=== PATIENT | male | born 1970 | race Caucasian/White ===

== ENCOUNTER 2016-09-12 17:26 | Inpatient (IN) | payer MEDICARE, MEDICAID ==
[2016-09-12] VITALS (9 sets, daily range): BP systolic 110–194; BP diastolic 74–170; PULSE 91–144; RESP 20–38; O2SAT 93–100
[~2016-09-12] VITALS: Ht 180.3 cm; Wt 86.7 kg
[2016-09-12] MEDS ORDERED: 0.9% Sodium Chloride 1,000 ML IV ONE (17:38)
--- NOTE | 2016-09-12 17:38 | ED.REPORT ---
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 Per medics, the patient's reports that he has been acting strange for the past couple days. At the scene, the patient was initially agitated and combative with medics and was administered 500 Ketamine IM. En route, he had a generalized tonic clonic seizure 10 min SHOE LASTER and was given 5 Versed which halted the seizure. Pt was given 2000 cc fluid and heart rate was 140 en route. Oral airway placed immediately. Blood sugar is 548 on arrival. His reports that he drinks at least 5 energy drinks a day. No other hx available secondary to pt's condition as he is unresponsive. Nursing Notes Stated Complaint: HIGH BLOOD SUGAR, AGITATED Chief Complaint: Critical Care/Intubated Nursing Notes Reviewed: Yes Allergies: Coded Allergies: cephalexin (Verified Allergy, Unknown, 09/12/16) codeine (Verified Allergy, Unknown, 09/12/16) Scheduled PRN Cyclobenzaprine (Cyclobenzaprine) 10 Mg Tablet 10 MG PO TID PRN PRN For Spasm Miscellaneous Medications Atenolol (Atenolol) 100 Mg Tablet 100 MG PO Losartan Potassium (Losartan Potassium) 100 Mg Tablet 100 MG PO General Time Seen by MD: 17:33 Chief Complaint Other (high blood sugar) Hx Obtained From: EMS Arrived By: Ambulance Sudden in Onset?: Yes Onset Occurred: 1 - 4 hours ago Symptom Duration: Since onset Recent Healthcare: No recent doctor visit, No recent hospitalization Similar Sx Previous: No Past Medical History Past Medical History Reports: Diabetes mellitus, Hypertension Reports: Depression Past Surgical History unknown Smoking History Unknown if Ever Smoker Social History custodial methadone use Alcohol Use: Denies alcohol use Drug Use: Meth Other Social History: Local resident Ambulatory Status Independent Review of Systems Unable to Obtain ROS Patient condition Physical Exam General: Airway patent, GCS of 3, however pt is sedated HEENT: Pupils 4-3 and reactive Left tympanic membrane normal, right tympanic membrane normal Midface stable, no malocclusion No nasal septal hematoma Normocephalic. Right parietal scalp hematoma. Mucous membranes dry. No signs of tongue biting. Neck: supple, trachea midline Lungs: Clear to auscultation bilaterally, somewhat increased work of breathing Chest: Stable without tenderness, no crepitus Cardiac: Tachycardic, regular rhythm Abdomen: Soft, incontinent of urine. Back: No bruising or step-offs Pelvis: Stable Skin: Warm and well perfused Extremities: Abrasion to left side lower extremity, no deformity. Left upper extremity grossly normal, no deformity. Right upper extremity grossly normal, no deformity. Right lower extremity grossly normal, no deformity. Pulses: Palpable to bilateral upper and lower extremities Neuro: GCS 3. Heavily sedated so unable to assess strength, sensation. Normal muscle tone. Psych: Unable to assess 2/2 patient condition. Vital Signs Vital Signs Date Time Temp Pulse Resp B/P Pulse Ox O2 Delivery O2 Flow Rate FiO2 09/12/16 19:13 126 26 127/79 95 Mechanical Ventilator 09/12/16 19:05 144 23 194/170 94 09/12/16 17:31 36.5 137 38 165/77 98 Non-Rebreather 15 Initial VS: Reviewed Interpretation & Diagnostics Lab Results Interpretation Result Diagram: 09/12/16 1730 09/13/16 0040 Test 09/12/16 17:30 09/12/16 17:50 White Blood Count 23.9th/mm3 (3.8-10.1) Red Blood Count 5.60mil/mm3 (4.40-5.80) Hemoglobin 17.1g/dL (13.8-17.2) Hematocrit 48.4% (41.0-50.0) Mean Corpuscular Volume 86.4fL (81-100) Mean Corpuscular Hemoglobin 30.5pg (27.0-35.0) Mean Corpuscular Hemoglobin Concent 35.3% (32.0-37.0) Red Cell Distribution Width 12.7% (12.3-15.4) Platelet Count 311bil/L (150-400) Neutrophils (%) (Auto) 76.9% (40-74) Lymphocytes (%) (Auto) 17.0% (14-46) Monocytes (%) (Auto) 4.8% (4-12) Eosinophils (%) (Auto) 0.4% (0-5) Basophils (%) (Auto) 0.3% (0-3) Prothrombin Time 10.8sec (8.1-12.5) Prothromb Time International Ratio 1.01ratio Osmolality 336 (275-300) Magnesium Level 2.4mg/dL (1.6-2.6) Total Bilirubin 0.2mg/dL (0.0-1.2) Aspartate Amino Transf (AST/SGOT) 18U/L (0-50) Alanine Aminotransferase (ALT/SGPT) 15U/L (0-44) Alkaline Phosphatase 93U/L (25-150) Total Protein 6.8g/dL (6.4-8.4) Albumin 4.1g/dL (3.4-5.0) Salicylates Level < 3.0ug/mL (30-250) Acetaminophen Level < 15.0ug/mL Rx (10-25) Alcohols < 10mg/dL (0-10) Ketones Negative (Negative) Urine Color Straw (YELLOW) Urine Appearance Hazy (CLEAR,HAZY) Urine pH 5.0 (5.0-8.0) Urine Specific Scalf 1.020 (1.003-1.035) Urine Protein 30mg/dL (NEG,TRACE) Urine Glucose (UA) 1000mg/dL (NEGATIVE) Urine Ketones Negativemg/dL (NEGATIVE) Urine Occult Blood Large (NEGATIVE) Urine Nitrite Negative (NEGATIVE) Urine Bilirubin Negative (NEGATIVE) Urine Urobilinogen Normalmg/dL (NORMAL) Urine Leukocyte Esterase Negative (NEGATIVE) Urine RBC 0-2/hpf (0-2) Urine WBC 0-5/hpf (0-5) Urine Epithelial Cells Few/hpf (NONE-MOD) Urine Crystals Amorphous urates (NONE Urine Bacteria Few/hpf (NONE-FEW) Urine Hyaline Casts None/lpf (NONE) Urine Granular Casts None seen (NONE SEEN) Urine Waxy Casts None seen (NONE SEEN) Urine Red Blood Cell Casts None seen (NONE SEEN) Urine White Blood Cell Casts None seen (NONE SEEN) Urine Mucus None seen (None Seen) Urine Trichomonas None seen (NONE SEEN) Urine Yeast None (NONE SEEN) Urinalysis Comment None Urine Culture Reflexed Not indicated ECG Interpretation ECG Interpretation: ST elevation Anterior Leads Possibly rate related Time: 19:13 Interpreted by: ED physician Rhythm / Conduction: Tachycardia (rate 124) X-Ray Chest Interpretation Chest Xray Interpretation: IMPRESSION: Bilateral perihilar and medial basilar patchy opacities likely aspiration/atelectasis although cannot exclude pneumonia. Please correlate clinically. Endotracheal tube with the tip projecting approximately 5 cm above the shelbi. Dictated by: Iván Quarles M.D. on 09/12/2016 at 19:59 Approved by: Iván Quarles M.D. on 09/12/2016 at 20:00 View: Portable Interpretation / Wet Read by: Interpret - Radiologist CT Head Interpretation HEAD CT IMPRESSION: No acute intracranial process. Right parietal scalp swelling/hematoma. Dictated by: Iván Quarles M.D. on 09/12/2016 at 18:26 Approved by: Iván Quarles M.D. on 09/12/2016 at 18:[address] CHEST: Lungs and pleura: Bilateral dependent consolidations in the lower lobes probably aspiration/atelectasis. No pleural effusions or pneumothorax. Central and peripheral airways appear patent and normal in caliber. Mediastinum: Heart size is normal. No pericardial effusion. No mediastinal or hilar adenopathy by size criteria. Thoracic aorta and central pulmonary arteries are normal in size. Esophagus is normal in caliber. No hiatal hernia. Chest wall: No axillary or supraclavicular adenopathy by size criteria. Thyroid gland negative . Study type: Chest CT no contrast Interpretation / Wet Read by: Interpret - Radiologist CT Abd / Pelvis Interpretation CT ABDOMEN: Solid organs: Liver and spleen are normal in size and enhancement. Gallbladder contracted . Biliary system is non dilated. Pancreas enhances normally. No adrenal nodules. Kidneys demonstrate normal size and enhancement, without hydronephrosis. Peritoneum and bowel: Bowel loops demonstrate normal wall thickness and caliber. No free fluid or air. Incidental colonic diverticulosis. Nodes and vessels: No retroperitoneal or mesenteric adenopathy by size criteria. Aorta and inferior vena cava are normal in size. Miscellaneous: No ventral hernias. CT PELVIS: Genitourinary: Bladder contains gas and there is a Montelongo catheter. Miscellaneous: No inguinal hernias or adenopathy. Bones: No suspicious bony lesions. No vertebral body compression fractures. IMPRESSION: Bilateral dependent consolidations suggesting aspiration but superimposed pneumonia cannot be excluded. Recommend clinical correlation. Elsewhere, no acute abnormality. Normal appendix. Colonic diverticulosis without evidence of acute inflammation. Intraluminal gas within the bladder although this could be from catheterization since a Montelongo catheter is present. Please correlate clinically. Dictated by: Iván Quarles M.D. on 09/12/2016 at 18:59 Approved by: Iván Quarles M.D. on 09/12/2016 at 19:08 Study type: Abdominal CT no contrast Interpretation / Wet Read by: Interpret - Radiologist Procedures Central Line Placement Time: 20:53 Procedure Performed by: ED physician, ED resident Consent / Setup / Site Prep: Informed consent provided, Oxygen administered , Pulse oximeter applied, monitor worker applied, Hand hygiene observed, Standard surgical scrub, Max barrier precaution, Sterile drapes applied, Position Trendelenburg Procedural Sedation/Analgesia: Sedation: Propofol, Sedation: Versed, Analgesia: Fentanyl Side / Location / Ultrasound: Internal jugular right, Ultrasound assisted Catheter / Lumen / Technique: Triple lumen, Good blood return Post-Procedure / Complications: Antibiotic oint applied, Dressing placed, CXR neg for pneumothorax, Condition improved, Tolerated procedure well, Patient stable Intubation Time: 17:54 Procedure Performed by: ED physician Consent / Setup / Site Prep: No consent - emergent, Time-out performed, Oxygen administered, Pulse oximeter applied, monitor worker applied, Hand hygiene observed, Stand sterile technique Patient Position: Sniff position Blade / ET Tube / Route: Mac, ET tube cuffed Procedural Sedation/Analgesia: Sedation: Ketamine Neuromuscular Agent: Rocuronium ET Confirmation: Direct visualization, BS equal, End tidal CO2 device, CXR Secured / Marked: ET tube device, Tube marked at ___ cm (24), Tube marked at teeth Complications: None Post-Procedure: Tolerated procedure well Re-Eval/Medical Decision Med Decision/Clinical Course In summary, 46-year-old male presenting to the ED unresponsive after EMS was called for altered mental status over the past several days, subsequently given ketamine for agitation at the scene. Upon arrival to the ED, patient is tachycardic, hypertensive, and initially protecting his airway. GCS of 3, however heavily sedated. Taken to the CT scanner for a head CT; patient began to stir, become increasingly agitated and decision was made to perform intubation at that time. This was tolerated well; please see separate documentation above. Unclear etiology for the patient's presentation at this time. He did have a seizure en route - lactate of 18.4 (suspect that this is secondary to his seizure, however not entirely clear). Troponin negative, white blood cell count of 23.9, anion gap of 33, creatinine of 1.43, glucose of 657. No known history of diabetes, no ketones in the urine or in the blood; patient is acidotic, however I think this is likely accounted for by his lactate. Does not fit with DKA or HHS at this time. EKG does demonstrate some ST elevation in the anterior leads, possibly rate related. I did discuss this with associate programmer briefly, who agreed that this did not represent a STEMI. CT scans of the patient's chest, abdomen, and pelvis were negative for any acute abnormality that would explain his symptoms; there is some possible aspiration. A central line was placed; please see the documentation above. This was performed in conjunction with the resident. Given no clear etiology for the patient's symptoms at this time, plan admission to the ICU for further management and evaluation. Patient is currently critically ill and requires intensive care. Time of Eval: 17:33 Re-Evaluation/Progress Note: PMHx unable to obtain secondary to patient's condition. Pt is sedated and unresponsive. Time of Eval: 17:54 Re-Evaluation/Progress Note: Pt is intubated during CT scan. Time of Eval: 18:50 Re-Evaluation/Progress Note: Pt is back in ED room, chest x-ray shows tube in correct position. Time of Eval: 20:53 Re-Evaluation/Progress Note: Central line placement by ED physician Dr. Louis and ED resident Dr. Murcia. Consultation #1: Referral / Consult Name: Kwadwo Piper MD Consulted With: Cardiology Call Returned at: 19:26 Note: Case discussed with Dr. Kwadwo Piper, cardiology. He does not feel the EKG is consistent with STEMI at this time. Consultation #2: Referral / Consult Name: Tianna Rapp MD Consulted With: Hospitalist Call Returned at: 19:42 Water Commissioner: Agrees with eval, Agrees with plan, Accepts admit Note: Case discussed with Dr. Rapp. She accepts admit. Consultation #3: Referral / Consult Name: Clif Murcia DO Call Returned at: 20:02 Note: Discussed possibility of central line with Dr. Clif Murcia. Counseled Regarding: Diagnosis, Lab results, Need for follow-up, When/why to return to ED Discharge & Departure Primary Impression: Seizure Additional Impressions: Metabolic acidosis with increased anion gap and accumulation of organic acids Altered mental status, unspecified Acute hyperglycemia Disposition: ADMITTED TO HOSPITAL Discharge Condition All VS Reviewed: Yes Condition: Critical Referrals: [facility] Crit Care Except Billable Proc Time Spent: 105-134 minutes Services Performed: Patient management by me, Time spent at bedside, Reviewing test results, Reviewing imaging, Discussing patient care, Documentation in record Critical Care Notes: Please see MDM. Kasi Attestation Portion of this note were transcribed by Jocelin Munoz. I, Dr. Louis, personally performed the history, physical exam, and medical decision-making: I reviewed and confirmed the accuracy for the information in the transcribed note. Signed by: kasi Nevarez, 09/12/16 2100 copies to: [facility] Isaiah Louis MD Sep 12, 2016 17:38 Jocelin Munoz Sep 12, 2016 17:45 1754: Pt is intubated during CT scan. 0: Pt is back in ED room, chest x-ray shows intubation was successful. 1924: Consulted with Dr. Kwadwo Piper, cardiology. He does not feel the EKG is consistent with STEMI at this time. 1950: Dr. Rapp sees pt in the ED. She accepts admit. 1999: Discussed possibility of central line with Dr. Clif Murcia. 2052: Central line placement by ED resident, Dr. Clif Murcia. Time of Eval: 17:33 Re-Evaluation/Progress Note: PMHx unable to obtain secondary to patient's condition. Pt is sedated and unresponsive. Time of Eval: 17:54 Re-Evaluation/Progress Note: Pt is intubated during CT scan. Time of Eval: 18:50 Re-Evaluation/Progress Note: Pt is back in ED room, chest x-ray shows tube Time of Eval: 20:53 Re-Evaluation/Progress Note: Central line placement by ED resident, Dr. Clif Murcia. Consultation #1: Referral / Consult Name: Kwadwo Piper MD Consulted With: Cardiology Call Returned at: 19:26 Note: Case discussed with Dr. Kwadwo Piper, cardiology. He does not feel the EKG is consistent with STEMI at this time. Consultation #2: Referral / Consult Name: Tianna Rapp MD Consulted With: Hospitalist Call Returned at: 19:42 Water Commissioner: Agrees with eval, Agrees with plan, Accepts admit Note: Case discussed with Dr. Rapp. She accepts admit. Consultation #3: Referral / Consult Name: Clif Murcia DO Call Returned at: 20:02 Note: Discussed possibility of central line with Dr. Clif Murcia. Counseled Regarding: Diagnosis, Lab results, Need for follow-up, When/why to return to ED Discharge & Departure Primary Impression: Seizure Disposition: ADMITTED TO HOSPITAL Discharge Condition All VS Reviewed: Yes Condition: Critical Referrals: [facility] Crit Care Except Billable Proc Time Spent: 75-104 minutes Services Performed: Patient management by me, Time spent at bedside, Reviewing test results, Reviewing imaging, Discussing patient care, Documentation in record Scribe Attestation Portion of this note were transcribed by Jocelin Munoz. Dr. Missy Maharaj, personally performed the history, physical exam, and medical decision-making: I reviewed and confirmed the accuracy for the information in the transcribed note. Signed by: kasi Nevarez, 09/12/16 2100 copies to: [facility] Isaiah Louis MD Sep 12, 2016 17:38 Jocelin Munoz Sep 12, 2016 17:45 Counseled Regarding: Diagnosis, Lab results, Need for follow-up, When/why to return to ED Discharge & Departure Disposition: ADMITTED TO HOSPITAL Discharge Condition All VS Reviewed: Yes Condition: Stable Referrals: [facility] Crit Care Except Billable Proc Time Spent: 75-104 minutes Services Performed: Patient management by me, Time spent at bedside, Reviewing test results, Reviewing imaging, Discussing patient care, Documentation in record Scribe Attestation Portion of this note were transcribed by Jocelin Munoz. Dr. Missy Maharaj, personally performed the history, physical exam, and medical decision-making: I reviewed and confirmed the accuracy for the information in the transcribed note. Signed by: kasi Nevarez, 09/12/16 2100 copies to: [facility] Isaiah Parra MD Sep 12, 2016 17:38 Jocelin Munoz Sep 12, 2016 17:45
[2016-09-12] MEDS ORDERED: Rocuronium 10 mg/mL 5 mL Inj IV ONE (17:50)
[2016-09-12 17:51] LABS: BASOPHILS % (AUTO) 0.3 % (0-3); EOSINOPHILS % (AUTO) 0.4 % (0-5); MONOCYTES % (AUTO) 4.8 % (4-12); Mean Corpuscular Hemoglobin 30.5 pg (27.0-35.0); Mean Corpuscular Volume 86.4 fL (81-100); NEUTROPHILS % (AUTO) 76.9 % (40-74); Platelet Count 311 bil/L (150-400)
--- NOTE | 2016-09-12 17:52 | ABG ---
DateTimeAnalyzed 17:44:00 -_ pH ____7.038 - 7.350 7.450 pCO2 ___31.0__ -mmHg 35.0 45.0 pO2 258 -mmHg 69.0 116 HCO3- ____7.9__ -mmol/L 22.0 26.0 ABE __-23.1__ -mmol/L -2.0 2.0 tHb ___16.3__ -g/dL O2Hb ___94.9__ -% COHb ____2.3__ -% MetHb ____0.9__ -% sO2 ___98.0__ -% 25.0 FIO2 ___90.0__ -% Drawn By gj - Date/Time Notified____ 17:52:00 -_ Spontaneous_RR ___28.0__ -b/min Liter_Flow ___15.0__ -L/min Oxygen Device 1 NON RE-JUAN - Notified By gj - Notified Whom GAGE - B 757 -mmHg tO2 ___22.3__ -Vol% Luis test _Positive -
[2016-09-12 18:09] LABS: INR 1.01 ratio
[2016-09-12] MEDS ORDERED: Propofol 10,000 mCg/mL 20 mL Inj IV ONE (18:15)
[2016-09-12 18:18] LABS: Magnesium 2.4 mg/dL (1.6-2.6)
[2016-09-12 18:20] LABS: TROPONIN T < 0.010 ug/L (0.0-0.011)
[2016-09-12] MEDS ORDERED: Sodium Bicarb (50 mEq) 8.4% 1 mEq/mL 50 mL Syringe IVPUSH ONE (18:25)
--- NOTE | 2016-09-12 18:31 | DRSVH ---
PROCEDURE: CT BRAIN WITHOUT CONTRAST ([id number]) INDICATIONS: AMS; hyperglycemia, ?seizure TECHNIQUE: Noncontrast 4.5 mm thick angled axial sections acquired from the foramen magnum to the vertex, with c oronal reformats. COMPARISON: None. FINDINGS: Image quality: Excellent. CSF spaces: Basal cisterns are patent. No extra-axial fluid collections. Ventricles are normal in size and shape. Brain: No midline shift. No intracranial masses or hemorrhage. Carr-white matter interface is norm al. Skull and face: Right parietal scalp soft tissue swelling/hematoma. Calvarium and visualized facial bones are intact, without suspicious lesions. Sinuses: Posterior ethmoid air cell opacification otherwise the visualized sinuses and mastoids are c lear. IMPRESSION: No acute intracranial process. Right parietal scalp swelling/hematoma. Dictated by: Iván Quarles M.D. on 09/12/2016 at 18:26 Approved by: Iván Quarles M.D. on 09/12/2016 at 18:29
[2016-09-12 18:32] LABS: APPEARANCE,URINE HAZY (CLEAR,HAZY); COLOR,URINE STRAW (YELLOW); OCCULT BLOOD,URINE LARGE (NEGATIVE); UROBILINOGEN,URINE NORMAL (NORMAL)
[2016-09-12] MEDS ORDERED: fentaNYL-PF 50 mCg/mL 2 mL Inj ONE (19:08)
[2016-09-12] MEDS ORDERED: fentaNYL-PF 50 mCg/mL 2 mL Inj IVPUSH ONE (19:10)
--- NOTE | 2016-09-12 19:10 | DRSVH ---
PROCEDURE: CT CHEST, ABDOMEN AND PELVIS WITH CONTRAST ([id number]) INDICATIONS: AMS, recent abd pain, acidotic TECHNIQUE: After the administration of intravenous contrast, 5 mm thick sections acquired from the lung apices t o the symphysis. 5 mm coronal and sagittal reformats were performed, with additional 7 mm MIP reform ats through the lungs. For radiation dose reduction, the following was used: automated exposure con trol, adjustment of mA and/or kV according to patient size. COMPARISON: None. FINDINGS: Image quality: Excellent. CHEST: Lungs and pleura: Bilateral dependent consolidations in the lower lobes probably aspiration/atelectas is. No pleural effusions or pneumothorax. Central and peripheral airways appear patent and normal in caliber. Mediastinum: Heart size is normal. No pericardial effusion. No mediastinal or hilar adenopathy by size criteria. Thoracic aorta and central pulmonary arteries are normal in size. Esophagus is shiraz l in caliber. No hiatal hernia. Chest wall: No axillary or supraclavicular adenopathy by size criteria. Thyroid gland negative . ABDOMEN: Solid organs: Liver and spleen are normal in size and enhancement. Gallbladder contracted . Biliar y system is non dilated. Pancreas enhances normally. No adrenal nodules. Kidneys demonstrate shiraz l size and enhancement, without hydronephrosis. Peritoneum and bowel: Bowel loops demonstrate normal wall thickness and caliber. No free fluid or a ir. Incidental colonic diverticulosis. Nodes and vessels: No retroperitoneal or mesenteric adenopathy by size criteria. Aorta and inferior vena cava are normal in size. Miscellaneous: No ventral hernias. PELVIS: Genitourinary: Bladder contains gas and there is a Montelongo catheter. Miscellaneous: No inguinal hernias or adenopathy. Bones: No suspicious bony lesions. No vertebral body compression fractures. IMPRESSION: Bilateral dependent consolidations suggesting aspiration but superimposed pneumonia matty ot be excluded. Recommend clinical correlation. Elsewhere, no acute abnormality. Normal appendix. Colonic diverticulosis without evidence of acute inflammation. Intraluminal gas within the bladder although this could be from catheterization since a Montelongo cathete r is present. Please correlate clinically. Dictated by: Iván Quarles M.D. on 09/12/2016 at 18:59 Approved by: Iván Quarles M.D. on 09/12/2016 at 19:08
[2016-09-12] MEDS ORDERED: fentaNYL 2,500 mCg/250 mL IV Premix IV SCH (19:15)
--- NOTE | 2016-09-12 20:03 | DRSVH ---
PROCEDURE: X-RAY CHEST ONE VIEW, PORTABLE ([id number]) INDICATIONS: AMS TECHNIQUE: One view of the chest was acquired. COMPARISON: None. FINDINGS: Surgical changes and devices: Endotracheal tube is seen with the tip approximately 5 cm above the car noel Lungs and pleura: No pleural effusions or pneumothorax. There are bilateral perihilar and medial bas ilar patchy opacities. Lung volumes are decreased. Mediastinum: Mediastinal contours appear normal. Heart size is normal. Bones and chest wall: No suspicious bony lesions. Overlying soft tissues appear unremarkable. IMPRESSION: Bilateral perihilar and medial basilar patchy opacities likely aspiration/atelectasis although cannot exclude pneumonia. Please correlate clinically. Endotracheal tube with the tip projecting approximately 5 cm above the shelbi. Dictated by: Iván Quarles M.D. on 09/12/2016 at 19:59 Approved by: Iván Quarles M.D. on 09/12/2016 at 20:00
[2016-09-12] MEDS ORDERED: CYCL10TA9 PO (20:56)
[2016-09-12] MEDS ORDERED: Alum-Mag Hydrox-Simeth 30 mL Suspension PO PRN (21:20)
[2016-09-12] MEDS ORDERED: Ondansetron 2 mg/mL 2 mL Inj IVPUSH PRN (21:20)
[2016-09-12] MEDS ORDERED: Dextrose 5% 0.45% NaCl 1,000 ML IV PRN (21:28)
[2016-09-12] MEDS ORDERED: Insulin Human REGular Inj 100 UNIT in 0.9% Sodium Chloride-Pha MIX 100 ML IV SCH (21:28)
--- NOTE | 2016-09-12 21:44 | DRSVH ---
PROCEDURE: X-RAY CHEST ONE VIEW, PORTABLE ([id number]) INDICATIONS: CENTRAL LINE PLACEMENT TECHNIQUE: One view of the chest was acquired. COMPARISON: None. FINDINGS: Surgical changes and devices: Endotracheal tube with the tip projecting 3 cm above the shelbi. Right internal jugular central venous catheter the tip projecting in the lower SVC. Enteric tube with the t ip projecting in the stomach Lungs and pleura: No pleural effusions or pneumothorax. No focal consolidation however scattered by Basler and perihilar groundglass opacities. Mediastinum: Mediastinal contours appear normal. Heart size is normal. Bones and chest wall: No suspicious bony lesions. Overlying soft tissues appear unremarkable. IMPRESSION: Low lung volumes and scattered groundglass opacities possibly atelectasis versus pulmonary edema. Ple ase correlate clinically. Support equipment as detailed above. Right central venous catheter with the tip projecting in the low er SVC. No pneumothorax. Dictated by: vIán Quarles M.D. on 09/12/2016 at 21:40 Approved by: Iván Quarles M.D. on 09/12/2016 at 21:42
--- NOTE | 2016-09-12 21:44 | PCM.HPMED ---
Subjective Date of Service Sep 12, 2016 Primary Provider: Admitting Physician: Tianna Rapp MD Primary Care Physician: Other,Physician Attending Physician: Tianna Rapp MD Admit Status: From the Emergency Department Chief Complaint: Altered Mental Status with seizure reported by ED History of Present Illness: Patient George Pan is a 46-year-old man with past medical history remarkable for hypertension, chronic back pain and diabetes who presents to [facility] with altered mental status and reported seizure activity in route by EMS. The patient was seen in the ED and was intubated and sedated. The history was obtained from the patient's 18-year-old son as well as common law of 20 years and mother. The son states that the patient was sleeping most of the day when he went to check on him the patient was lying face down with foamy sputum coming from his mouth and unresponsive. The son called EMS and proceeded to perform CPR until paramedics arrived. Per ED report of EMS activity paramedics found the patient initially agitated and combative and was administered 500 mg of ketamine IM. The patient was found to have an elevated blood glucose and the patient was given 2000 mL of IV fluids with a heart rate in the 140s. In route the patient is described as having a generalized seizure 10 minutes EPIC DIRECTOR and was given 5 mg of Versed which halted the seizure. Per the the patient has been complaining of 4 days of headache made worse with coughing. For the headache today the left the patient a topiramate prescription bottle however after pill count inspection the patient likely took 1 or none. The mother gave the patient a Vicodin pill for the headache. 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 The patient reportedly has diagnoses of diabetes and hypertension however the patient is noncompliant with prescription medications and has never taken insulin. The patient has reportedly been urinating extremely frequently and large amounts over the last several days to weeks. Reportedly having to get up multiple times in the middle of the night to urinate. Review of Systems: Unable to obtain given the patient is intubated and sedated. 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 Hx Alcohol Use: No ( denies) Hx Substance Use: Yes (stopped methadone one month prior distant history of amphetamine use) Hx Tobacco Use: Yes Smoking Status: Current Every Day Smoker Years of Smokin Living Arrangement: with Family Exam Vital Signs Vital Sign - Last Date Time Temp Pulse Resp B/P Pulse Ox O2 Delivery O2 Flow Rate FiO2 09/12/16 20:16 93 09/12/16 19:40 108 26 131/94 Mechanical Ventilator 09/12/16 17:31 36.5 15 Exam Gen.: Middle-aged man with normal body habitus intubated and sedated Eyes: Pupils constricted but equal round and reactive to light, anicteric sclera , noninjected conjunctiva HENT: Hematoma noted at right parietal, ET tube in place, oral cavity with moist mucous membranes without central cyanosis Neck: Supple, trachea midline, right central venous IJ in place no noted JVD Cardiovascular: Tachycardic regular rhythm without murmurs rubs or gallops noted Lungs: Coarse bronchial breath sounds noted in bilateral lung [place], without wheezing or rhonchi Abdomen: Soft, nondistended, tympanic to percussion, normal active bowel sounds , without organomegaly Extremities: No cyanosis clubbing or edema noted, pulses intact bilaterally at dorsalis pedis and radial : Montelongo catheter in place Skin: Warm and dry Neuro: Difficult to assess given intubated and sedated however patient is able to move all extremities spontaneously Psych: Unable to assess Lab and Diagnostics Result Diagram: 09/12/16 1730 09/12/16 1730 X-Rays, CTs and MRIs CT BRAIN WITHOUT CONTRAST IMPRESSION: No acute intracranial process. Right parietal scalp swelling/ hematoma. Approved by: Iván Quarles M.D. on 09/12/2016 at 18:29 PROCEDURE: CT CHEST, ABDOMEN AND PELVIS WITH CONTRAST IMPRESSION: Bilateral dependent consolidations suggesting aspiration but superimposed pneumonia cannot be excluded. Recommend clinical correlation. Elsewhere, no acute abnormality. Normal appendix. Colonic diverticulosis without evidence of acute inflammation. Intraluminal gas within the bladder although this could be from catheterization since a Montelongo catheter is present. Please correlate clinically. Approved by: Iván Quarles M.D. on 09/12/2016 at 19:08 X-RAY CHEST ONE VIEW, PORTABLE IMPRESSION: Bilateral perihilar and medial basilar patchy opacities likely aspiration/ atelectasis although cannot exclude pneumonia. Please correlate clinically. Endotracheal tube with the tip projecting approximately 5 cm above the shelbi. Approved by: Iván Quarles M.D. on 09/12/2016 at 20:00 Assessment & Plan Patient George Pan is a 46-year-old man with past medical history remarkable for hypertension, chronic back pain and diabetes who presents to [facility] with altered mental status and reported seizure activity in route by EMS. # Acute Generalized tonic clonic seizure - Described by EMS and broken with 5 mg IV Versed in route - Family denies any recent history of seizure, reportedly patient had febrile seizures as a young child - family reports the patient has had a four-day headache, and slept most of today after possibly taking both Vicodin and Topiramate - denies chronic alcohol or benzodiazepine use, with negative urine tox in the ED, making withdrawal seizures less likely - Initial lactic acid of 18.4 was rapidly corrected to 2.1 within 5 hours confirming likely seizure activity prior to initial blood draw - Patient is currently intubated and sedated on propofol and fentanyl both of which are depressants were not first line for seizure activity - CT head without contrast personally reviewed and discussed with on-call radiologist fails to reveal an underlying etiology - Keppra 1500 mg IV once as a loading dose until etiology can be determined - MRI seizure brain ordered for the AM, patient will require MRI compatible ventilator and pushes of Ativan and propofol - EEG ordered # Acute altered mental status - Patient was found lying face down by his son nonresponsive after which the son began CPR and called 911, the patient reportedly became combative with EMS requiring ketamine sedation and then had a witnessed seizure - CT head without contrast personally reviewed and discussed with on-call radiologist fails to reveal an underlying etiology - Differential diagnosis includes metabolic encephalopathy, drug tox delirium, post ictal state, as well as embolic/thrombotic CVA - Patient was intubated in the ED and sedated on propofol and fentanyl both of which are depressants likely helping control and he seizure activity however are not first line for seizure activity - Patient is able to move all extremities spontaneously with low sedation - Sedation vacation in the a.m. # Acute severe High anion gap metabolic acidosis with respiratory compensation - Initial ABG performed an EGD while on 15 L nonrebreather showed a pH of 7.038 , PCO2 31, PO2 258, calculated bicarbonate 8 - Initial anion gap from ED blood draw shows a gap of 33 with bicarbonate measured at 8 likely related to the lactic acid of 18 - Measured serum osmolarity is 336 with calculated osmolarity given hyperglycemia of 316 making an osmole gap 20 likely related to the lactic acid of 18 - Methanol Ethylene Glycol will be ordered, ketones were negative ASA negative ETOH negative - Lactic acid redrawn every 2 hours until negative # Acute Hyperosmolar hyperglycemic nonketotic state secondary to chronic type II Diabetes Mellitus - Patient has a diagnosis of type II diabetes however was not taking any medications and was urinating extremely frequently per family report - Serum glucose at initial check was 657 with osmolarity of 336 without ketones - Patient placed on the non-DKA protocol insulin drip - Regular monitoring of BMP is to check anion gap to determine duration of insulin drip therapy - Hgb A1C ordered and pending # Elevated troponins of uncertain significance - Initial troponin at admission was negative however repeat troponin positive at 0.314 - Initial EKG performed in the ED was read as possible anterior wall infarct however this was difficult to assess given tachycardia with peaked T waves, repeat EKG shows only left ventricular hypertrophy based off cumulative 35 mm to flexion QRS complexes in the precordial leads, without ischemic changes or T- wave inversions from possible cardiac injury - CK 466 CK-MB 11 with the percent CK-MB 2.5 and making global muscle injury secondary to above seizure the likely diagnosis - Given witnessed seizure activity requiring Versed as well as elevated lactic acid with vital signs of heart rate of 144 with blood pressure of 194/170 likely related to demand ischemia - Bedside assessment of wall motion abnormality with ultrasound failed to reveal any abnormalities - Redraw troponins until decline - Anticoagulation is contraindicated given the patient's seizure with altered mental status - Complete echo to formally assess for wall motion abnormality # Acute leukocytosis - Neutrophil predominance of events at 76.9% - likely stress response - CT chest abdomen pelvis shows some dependent consolidations in the posterior lung azevedo however procalcitonin is negative at 0.17 - [place] dependent consolidations likely related to aspiration pneumonitis given the patient had CPR performed by his son - Follow up routine CBC and chest x-rays # acute kidney injury - creatinine at admission 1.43, which improved to 1.0 after 5 hours - FENA at 0.4% shows pre-renal cause likely due to oliguria osmotic diureses from uncontrolled diabetes with noted significant glucose load on UA - fluid rehydration DVT prophylaxis: SCDs only given recent altered mental status with seizure activity makes anticoagulation contraindicated GI prophylaxis: Not indicated at this time Patient is full code Patient is admitted to the CCU as inpatient with expected length of stay greater than two midnights given the presenting symptoms, likely diagnosis, possible complications and required treatments. Pain Evaluation: Adequate Pain Control GI Prophylaxis: Not indicated VTE Prophylaxis Indicated: Contraindicated VTE Prophylaxis: SCDs VTE Mechanical Devices: Intermittant Pneumatic CD Resuscitation Status: CPR: Attempt Resuscitation Attending Statement Pt seen and examined by myself and agree with above plan. Clif Murcia DO Sep 12, 2016 21:44 Tianna Rapp MD Sep 13, 2016 06:12
[2016-09-12] MEDS: Propofol Inj 1,000,000 MCG in IV Premix 1 EACH IV SCH (22:08)
[2016-09-12] MEDS: fentaNYL 2,500 mCg/250 mL 2,500 MCG in IV Premix 1 EACH IV SCH (22:55)
[2016-09-12] MEDS: 0.9% Sodium Chloride 1,000 ML IV SCH (22:55)
--- NOTE | 2016-09-12 23:25 | ABG ---
DateTimeAnalyzed 23:14:16 -_ pH ____7.404 - 7.350 7.450 pCO2 ___32.3__ -mmHg 35.0 45.0 pO2 120 -mmHg 70.0 100 HCO3- ___20.2__ -mmol/L 22.0 26.0 ABE ___-3.9__ -mmol/L -2.0 2.0 tHb ___15.9__ -g/dL 12.0 18.0 O2Hb ___98.0__ -% 95.0 COHb ____1.1__ -% 1.5 MetHb ____0.1__ -% 0.4 1.5 sO2 ___99.2__ -% 25.0 FIO2 ___21.0__ -% PEEP ____5.0__ -cmH2O Set_RR 20 -b/min Vt __550.0__ -L Drawn By TLA - Date/Time Notified____ 23:25:00 -_ Spontaneous_RR 20 -b/min Oxygen Device 1 VENTILATOR - Notified By TLA - Notified Whom RN-Doc Pierre - K+ ____4.0__ -mmol/L tO2 ___22.0__ -Vol% Luis test N/A -
[2016-09-12 23:35] LABS: TROPONIN T 0.314 ug/L (0.0-0.011)
[2016-09-13] VITALS (19 sets, daily range): BP systolic 82–126; BP diastolic 48–66; PULSE 67–91; RESP 17; O2SAT 95–99
[2016-09-13] MEDS: Chlorhexidine 0.12% 15 mL Oral Solution MT SCH ×7 (00:30→23:44)
[2016-09-13] MEDS ORDERED: ATEN100T PO (00:52)
[2016-09-13] MEDS ORDERED: LOSA100T29 PO (00:52)
--- NOTE | 2016-09-13 02:12 | PCM.PROC ---
Procedure Note Date of Service: Sep 12, 2016 Pre Procedure Diagnosis: Generalized tonic-clonic seizure Hyperglycemic hyperosmolar nonketotic state Post Procedure Diagnosis: Generalized tonic-clonic seizure Hyperglycemic hyperosmolar nonketotic state Procedure: Right internal jugular central line placement Provider and Dry Cleaner Helper: Dr. Isaiah Murcia Indication for Procedure: Intravenous access given critically ill Procedural Analgesia: No local anesthetic given; patient was given a bolus with Propofol Procedure Details: Prior to the procedure 8 time-out was completed verifying correct patient, procedure, and site. Before beginning each lumen of the 9 solomon islander catheter was evacuated of air and flushed with sterile saline. The patient's right internal jugular was then evaluated using ultrasound to visualize the jugular and carotid anatomy. The patient was placed in a dependent position appropriate for central line placement based on the internal jugular vein to be cannulated. The patients right neck was prepped and draped in sterile fashion. A triple lumen 9- Latvian catheter was introduced into the the right internal jugular using the Seldinger technique and under ultrasound guidance. The catheter was threaded smoothly over the guide wire and appropriate blood return was obtained. The catheter was then secured in place to the skin using a sterile Tegaderm dressing. A follow up chest xray was performed and the catheter tip was determined to be located in the appropriate location in the SVC. Dr. Louis was present for the entire procedure. Estimated Blood Loss: < 5mL The patient tolerated the procedure well and there were no complications. Attending Statement I performed the procedure alongside the resident as noted above. Please see separate documentation. Clif Mrucia DO Sep 13, 2016 02:12 Isaiah Louis MD Sep 14, 2016 15:14
[2016-09-13 02:27] LABS: OSMOLALITY, URINE 588 mOs/kH2O (250-1200)
[2016-09-13] MEDS ORDERED: levETIRAcetam Inj 1,500 MG in Dextrose 5% 100 ML IV ONE (02:30)
[2016-09-13] MEDS: Propofol Inj 1,000,000 MCG in IV Premix 1 EACH IV SCH ×4 (03:38→21:07)
[2016-09-13 04:38] LABS: BASOPHILS % (AUTO) 0.1 % (0-3); EOSINOPHILS % (AUTO) 0.2 % (0-5); MONOCYTES % (AUTO) 8.4 % (4-12); Mean Corpuscular Hemoglobin 30.4 pg (27.0-35.0); Mean Corpuscular Volume 84.5 fL (81-100); NEUTROPHILS % (AUTO) 79.4 % (40-74); Platelet Count 238 bil/L (150-400)
--- NOTE | 2016-09-13 05:14 | ABG ---
DateTimeAnalyzed 05:07:00 -_ pH ____7.394 - 7.350 7.450 pCO2 ___33.4__ -mmHg 35.0 45.0 pO2 119 -mmHg 69.0 116 HCO3- ___20.0__ -mmol/L 22.0 26.0 ABE ___-3.5__ -mmol/L -2.0 2.0 tHb ___15.0__ -g/dL O2Hb ___96.4__ -% COHb ____1.1__ -% MetHb ____0.6__ -% sO2 ___98.1__ -% 25.0 FIO2 ___21.0__ -% PEEP ____5.0__ -cmH2O Set_RR ___17.0__ -b/min Vt __550.0__ -L Drawn By TLA - Date/Time Notified____ 05:14:00 -_ Spontaneous_RR ___17.0__ -b/min Oxygen Device 1 VENTILATOR - Notified By TLA - Notified Whom ____R. Pierre RN - B 759 -mmHg tO2 ___20.4__ -Vol% Luis test N/A -
[2016-09-13] MEDS ORDERED: 0.9% Sodium Chloride 250 ML IV ONE ×2 (05:15→05:50)
[2016-09-13] MEDS: 0.9% Sodium Chloride 1,000 ML IV SCH ×3 (05:15→19:35)
--- NOTE | 2016-09-13 06:11 | NUR ---
Admission to CCU Pt admitted to unit from ER. Pt intubated and transported with 2 RT/ RN and manager of international up to floor at 2200 on 09/12. Pt maxed out on propofol and had received Versed boluses for sedation with some effect. VSS. Right Triple IJ CVC patent and saline locked. Propofol and fentanyl infusing into right AC, left AC saline locked. MD to assess patient upon his arrival. OG, Montelongo were placed in the ER. Pt started on NDKA insulin gtt for hyperglycemia. Repeat ABGs resulted showing high pO2. Dr. Murcia ordered rate decreased and subsequently the FiO2 to be decreased. x2 NS boluses of 250ml given for borderline hypotension with some effect. Multiple family members at bedside upon his arrival. Family members available to provide little information regarding health status of patient and medications other than the fact that he has a few meds but doesn't take them. Family dynamics might constitute a socially responsible investment adviser/respiratory equipment assistant consult to navigate this difficult situation. TELE/Cardiac: Unremarkable, ECHO scheduled for today. Troponins trending and show increasing levels. CK/CK-MB also resulted. Pt not started on Heparin gtt due to risks outweighing the potential benefits as per MD. Respiratory: PRVC ventilator mode FiO2 40%, +5 Peep, RR17, vT550: pt coughs and reaches for tube with slightest stimulation or lightening of sedation; thick bowman secretions suctioned through ET tube. Wrist restraints secured to bed for safety. GI/: OG tube to low continuous suction draining green gastric contents, Montelongo draining small amount of urine (150ml this shift), NS infusing at 150ml/hour. Neuro: Pt moves all extremities and has good sensation and muscle strength. MD ordered EEG for today along with MRI Head. Pt remains NPO at this time.
[2016-09-13] MEDS ORDERED: Vancomycin Dose per Pharmacist XX SCH (09:25)
[2016-09-13] MEDS ORDERED: Meropenem Inj 1,000 MG in 0.9% Sodium Chloride 100 ML IV SCH (09:25)
--- NOTE | 2016-09-13 09:37 | DRSVH ---
PROCEDURE: X-RAY CHEST ONE VIEW, PORTABLE ([id number]) INDICATIONS: possible aspiration TECHNIQUE: One view of the chest was acquired. COMPARISON: [facility], CR, XR CHEST 1VW (PORTABLE), 09/12/2016, 20:56. FINDINGS: Surgical changes and devices: Endotracheal tube, nasogastric tube and right-sided central venous cath eter are unchanged. Lungs and pleura: There is persistent appearance of retrocardiac and right basilar opacity, with the latter slightly more prominent when compared to prior exam. Mediastinum: Mediastinal contours appear normal. Heart size is normal. Bones and chest wall: No suspicious bony lesions. Overlying soft tissues appear unremarkable. IMPRESSION: Persistent appearance of retrocardiac and right basilar opacities slightly more prominent on the right as above. Findings are suggestive of pneumonia. Dictated by: Ev Jerome M.D. on 09/13/2016 at 9:34 Approved by: Ev Jerome M.D. on 09/13/2016 at 9:35
[2016-09-13] MEDS ORDERED: Meropenem 1 Gm/100 mL NS Minibag Plus IV ONE ×2 (10:00)
[2016-09-13] MEDS ORDERED: Vancomycin/500 mL NS IV ONE ×2 (10:05)
[2016-09-13] MEDS ORDERED: Heparin 5,000 Unit/mL Inj SUBQ SCH (10:05)
[2016-09-13] MEDS ORDERED: Vancomycin Serum Trough XX ONE (10:05)
--- NOTE | 2016-09-13 11:30 | NUR ---
NUTRITION ASSESSMENT: ASSESS: Pt is a 46yo M admitted for AMS and seizure activity. He is currently intubated and sedated. There is concern for aspiration and possible meningitis. Pt has history of DM but was not taking any medication. PMHX: HTN, DM, back pain, polysubstance abuse LABS: Reviewed. Cl 109, glu 248, ca 8.0, alb 4.1, A1C 11.3 MEDS: Reviewed. Fentanyl, insulin, propofol currently running at 22.3ml/hr providing 588kcal/day GI: 0 BM SKIN: pollo 13 CURRENT WTS: 96kg, BMI 29.5kg/m2, IBW 78kg DIET: NPOx1 EST. NEEDS: vent Kcals: 1920-2400kcal/day (20-25kcal/kg) Pro: 145-170g/day (1.5-1.8g/kg) Fluids: ~2400ml/day (25ml/kg) NUTRITION DIAGNOSIS: 1.) Inadequate oral intake related to decreased ability to consume sufficient energy as evidenced by current NPO status 2.) Altered nutrition related lab values related to endocrine dysfunction as evidence by A1C of 11.3 and elevated BG levels NUTRITION INTERVENTION: 1.) Will monitor NPO/vent status. If pt remains vented for next 24-48 hrs, recommend consider nutrition support. Due to history of DM, recommend Glucerna 1.5. Start TF @ 10ml/hr. If tolerated, advance by 10ml q 6 hrs until reach goal rate of 55ml/hr to provide 1815kcal (2403kcalw/propofol) and 100g pro (100% kcal and 68% pro needs). 2.) Adjust goal rate based on daily propofol 3.) Once TF at goal rate, recommend addition of prosource to better meet protein needs. MONITOR / EVAL: NPO/vent, nutrition support, GI, labs, wt, poc , nutrition status. Will continue to monitor per high nutrition risk guidelines
[2016-09-13] MEDS: SODIUM CHLORIDE 0.9% IV SCH ×3 (11:35→23:47)
[2016-09-13] MEDS: ACYCLOVIR IV SCH ×3 (11:35→23:47)
[2016-09-13] MEDS ORDERED: Heparin 10,000 Unit/1,000 mL NS Premix IV ONE (11:38)
[2016-09-13] MEDS ORDERED: Heparin 1,000 Units/500 mL NS Premix IV ONE (11:39)
[2016-09-13] MEDS ORDERED: Heparin 1,000 Unit/mL 10 mL Inj ONE (12:10)
[2016-09-13] MEDS ORDERED: Phenylephrine/NS-PF 100 mCg/mL 5 mL Syringe IVPUSH ONE (12:10)
[2016-09-13] MEDS ORDERED: Nitroglycerin 50,000 mcg/250 mL D5W Premix IV ONE (12:10)
[2016-09-13] MEDS ORDERED: Atropine 1 mg/10 mL (Code) Syringe ONE (12:10)
--- NOTE | 2016-09-13 13:10 | CS94 ---
[address] [address] DIAGNOSTIC CARDIAC CATHETERIZATION PATIENT: FROYLAN FRAGA : 1970 MR#: [id number] ADMIT: 09/12/2016 JOB ID: [id number] SERVICE DATE: 09/13/2016 PATIENT PROFILE: The patient is a 46-year-old male with history of hypertension, diabetes, and nicotine addiction. He presents with altered mental status and seizure activity. EKG on admission shows hyper acute T-waves. Echocardiogram demonstrated wall motion abnormality. There was concern about acute myocardial infarction. PROCEDURE: 1. Retrograde left heart catheterization. 2. Selective coronary angiography. 3. Left ventricular angiogram. 4. Vascular closure device, Perclose. COMPLICATIONS: None. METHOD: Retrograde left heart catheterization was performed from the right groin under 1% lidocaine local anesthesia using a 6-Comoran sheath. Selective coronary angiogram was performed in multiple projections, including cranial and caudal angulations with hand injected contrast via JL4 and 3DRC catheters. A 6-Comoran angulated pigtail catheter was advanced to the left ventricle and left ventricular angiogram was performed in the 30 degree ROTHMAN view by injecting contrast at the rate of 10 cc/second for 3 seconds. This catheter was withdrawn. Right femoral angiogram was performed. Following sheath removal, hemostasis was achieved by using a Perclose device. The patient tolerated the procedure well. He was transferred to Intensive Care Unit in stable condition. TOTAL CONTRAST USED: 60 cc. FLUOROSCOPY TIME: 1.4 minutes. RESULTS: 1. Selective coronary angiogram: a. Left main coronary artery is normal. b. The left anterior descending artery is transapical and has 40% stenosis in the proximal portion. c. The circumflex artery is normal. d. The dominant right coronary artery is normal. 2. Left ventricular angiogram demonstrated near-normal left ventricular systolic function (visually estimated ejection fraction 65%). The middle third of the anterolateral wall is akinetic. The remaining segments contract normally. There is no mitral regurgitation. 3. There is no gradient across the aortic valve on catheter withdrawal. 4. Aortic pressure is 96/55 mmHg. Left ventricular pressure is 94/6 mmHg. 5. Left ventricular end-diastolic pressure is 13 mmHg. CONCLUSION: 1. A 40% proximal left anterior descending artery stenosis. 2. LVEF 65% with middle 1/3 of the anterolateral wall akinetic. 3. LVEDP is 13 mmHg. MTDD
--- NOTE | 2016-09-13 13:20 | PCM.PNMED ---
Subjective Date of Service Sep 13, 2016 Subjective pt remained sedated with propofol, Precedex reportedly TTE showed regional WMA, possible AMI as initial trigger, UOP poor 150cc overnight, cynthia color insulin gtt running overnight, awaits cardiology eval Exam Vital Signs Vital Sign - Last Date Time Temp Pulse Resp B/P Pulse Ox O2 Delivery O2 Flow Rate FiO2 09/13/16 07:15 78 89/58 97 40 09/13/16 03:03 37.4 17 Mechanical Ventilator 09/12/16 17:31 15 Intake and Output 09/12/16 09/12/16 09/13/16 Cumulative From/Thru 15:00 23:00 07:00 09/12/16 17:31 - 09/13/16 05:23 Intake Total 3000 ml 1322 ml 4322 ml Output Total 1500 ml 150 ml 1650 ml Balance 1500 ml 1172 ml 2672 ml Intake Oral 0 ml 0 ml IV Total 3000 ml 1322 ml 4322 ml Output Urine Total 1500 ml 150 ml 1650 ml # Bowel Movements 0 0 Exam sedated, RASS-4, PERRLA, no corneal reflex no JVD, MMM, no LAD RRR, nl s1, s2 no mrg CTAB, no w,c S,ND,NT,normoactive BS+ warm, no edema, pulses 2/2 IVs and Medications Medications Reviewed: Medications were reviewed in detail Lab and Diagnostics Result Diagram: 09/13/16 0430 09/13/16 0803 X-Rays, CTs and MRIs CT BRAIN WITHOUT CONTRAST IMPRESSION: No acute intracranial process. Right parietal scalp swelling/ hematoma. Approved by: Iván Quarles M.D. on 09/12/2016 at 18:29 PROCEDURE: CT CHEST, ABDOMEN AND PELVIS WITH CONTRAST IMPRESSION: Bilateral dependent consolidations suggesting aspiration but superimposed pneumonia cannot be excluded. Recommend clinical correlation. Elsewhere, no acute abnormality. Normal appendix. Colonic diverticulosis without evidence of acute inflammation. Intraluminal gas within the bladder although this could be from catheterization since a [place] catheter is present. Please correlate clinically. Approved by: Iván Quarles M.D. on 09/12/2016 at 19:08 X-RAY CHEST ONE VIEW, PORTABLE IMPRESSION: Bilateral perihilar and medial basilar patchy opacities likely aspiration/ atelectasis although cannot exclude pneumonia. Please correlate clinically. Endotracheal tube with the tip projecting approximately 5 cm above the shelbi. Approved by: Iván Quarles M.D. on 09/12/2016 at 20:00 Assessment & Plan Patient George Pan is a 46-year-old man with past medical history remarkable for hypertension, chronic back pain and diabetes who presents to [facility] with altered mental status and reported seizure activity in route by EMS. acute, active acute encephalopathy, POA, unclear etiologies yet: ddx: primary AMI with collapse, seizure, meningitis, CVA. Utox unremarkable. -appreciate ICU team management, ID, cardiology input -started abx/ antiviral to cover meningitis/encephalitis -sedation, Vent bundle per protocol, -follow up EEG, MRI, probable LP -s/p keppra 1.5g, continue for now 500mg bid -NG for feeding if pt remains in same condition tomorrow probable AMI, positive troponins, peaked at 0.423, trending down, -awaits official TTE, cardiology eval, possible cath, asa/BB/statin/ACEI, HHS, POA, in the setting of uncontrolled [id number], noncompliance, reported sx of overt hyperglycemia, a1c11.3, [id number] on admission, ketone neg in UA. - Patient placed on the non-DKA protocol insulin drip, bridge with long acting today leukocytosis with poly77, POA, probable infectious status, meningits as above, aspiration PNA or stress induced, recent steroid use. CXR showed retrocardiac and right basilar opacities -abx as above, trends fever curve, PCT, wbc, appreciate ID input. chronic, stable, resolved YOVANY, likely due to prolonged down time, mild rhabdomyolysis, [id number], FENA at 0.4%, resolved with IVF, Acute severe lactic acidosis due to decreased tissue perfusion with arrest or possible indicator of seizure, rapidly resolved DVT prophylaxis: SCDs only given recent altered mental status with seizure activity makes anticoagulation contraindicated GI prophylaxis: PPI Patient is full code dispo:CCU appropriate GI Prophylaxis: Not indicated VTE Prophylaxis: SCDs VTE Mechanical Devices: Intermittant Pneumatic CD Resuscitation Status: CPR: Attempt Resuscitation Time spent 35min Teri Horta MD Sep 13, 2016 13:20
[2016-09-13] MEDS: Insulin Human REGular 300 Unit/3 mL Inj SUBQ SCH ×2 (13:23→18:17)
--- NOTE | 2016-09-13 13:26 | CONS ---
[address] [address] CONSULTATION REPORT PATIENT: FROYLAN FRAGA : 1970 MR#: [id number] ADMIT: 09/12/2016 JOB ID: [id number] DATE OF SERVICE: 09/13/2016 REASON FOR EVALUATION: Abnormal EKG and elevated troponin. REQUESTING PHYSICIAN: Dr. Murcia HISTORY OF PRESENT ILLNESS: The history was obtained from the patient's and medical record review. The patient is a 46-year-old male with history of hypertension, diabetes, and nicotine addiction. He apparently had seizure activity before he became unresponsive. His son performed CPR and called medics. The patient was intubated in the field and was brought to [facility]. EKG on admission showed hyperacute T-wave. Cardiac enzymes showed elevated troponin. Cardiology consultation was then obtained. PAST MEDICAL HISTORY: 1. Hypertension. 2. Diabetes mellitus. 3. Chronic back pain. 4. History of polysubstance abuse. MEDICATIONS: Noncompliant with prescribed blood pressure and diabetes medications. ALLERGIES: CEPHALEXIN AND CODEINE. SOCIAL HISTORY: He is a lifelong smoker and tobacco chewer. FAMILY HISTORY: No known history of premature coronary artery disease. REVIEW OF SYSTEMS: Unobtainable due to the patient is intubated and sedated. PHYSICAL EXAMINATION: Reveals a middle-aged male lying in bed, intubated and sedated. Temperature is 37.4. Blood pressure is 94/57. Pulse 78. Body weight is 96 kg. Head and face have normal configuration. Anicteric sclerae. Neck supple. No jugular venous distention. No carotid bruits. Chest: Normal expansion. Lungs are clear to auscultation anteriorly. Heart: The first and second heart sounds are normal. No gallop or murmur. Abdomen: Soft. Bowel sounds diminished. Extremities: No clubbing, cyanosis, or edema. Skin: Warm and dry. Neurology: Sedated and unresponsive. There is spontaneous movement of all extremities. LABORATORY: Blood tests showed hemoglobin 14.5, WBC 19.5, platelet 238. Sodium 141, potassium 4.1, chloride 106, bicarb 28, BUN 14, creatinine 1.05, glucose 267. CK 466. Troponins went up from less than 0.01, then 0.134, and 0.423. IMPRESSION: 1. Elevated troponin, likely due to demand ischemia from seizure activity and hypoxemia. 2. Nicotine addiction. 3. History of hypertension. 4. Diabetes mellitus. 5. History of medical noncompliance. ASSESSMENT AND PLAN: I do not believe that the patient has ongoing acute coronary event. However, in view of his young age and wall motion abnormality on echocardiogram, I will perform coronary angiogram to identify the true nature of his heart condition. The risks and benefits of the procedure have been explained to his and his family. They understand and agree to proceed with the procedure. CARYN
[2016-09-13] MEDS: Norepineph 8,000 mCg/250 mL NS 8,000 MCG in IV Premix 1 EACH IV SCH (14:03)
[2016-09-13] MEDS ORDERED: Atropine 1 mg/10 mL (Code) Syringe IVPUSH PRN (14:20)
[2016-09-13] MEDS ORDERED: 0.9% Sodium Chloride 250 ML BOLUS IV PRN (14:20)
[2016-09-13] MEDS ORDERED: Ondansetron 2 mg/mL 2 mL Inj IVPUSH PRN (14:20)
[2016-09-13] MEDS ORDERED: Sodium Chloride LOK Flush 10 mL Syringe IVFLUSH PRN (14:20)
[2016-09-13] MEDS ORDERED: 0.9% Sodium Chloride 400 ML (4 HRS) IV ONE (14:20)
--- NOTE | 2016-09-13 15:10 | CONS ---
[address] [address] CONSULTATION REPORT PATIENT: FROYLAN FRAGA : 1970 MR#: [id number] ADMIT: 09/12/2016 JOB ID: [id number] DATE OF SERVICE: 09/13/2016 INFECTIOUS DISEASE CONSULTATION: I thank Dr. Sandeep Radford for this timely consult. REASON FOR CONSULT: Altered mental status and seizures in an ICU patient. HISTORY OF THE PRESENT ILLNESS: The patient is a 46-year-old gentleman with underlying diabetes, hypertension and polysubstance abuse. He was in his usual state of apparently reasonable health, which consists of having polyuria, polyphagia and not taking any drugs for his diabetes, until yesterday. The tells me that the day before yesterday the patient was normal but yesterday, he was perhaps lethargic and had been complaining of a headache for about four days as his only complaint. Yesterday, he was found lying down unconscious with frothy sputum. EMS was activated, and the family briefly initiated CPR but by the time EMS arrived, the patient was extremely combative and disoriented. This required giving ketamine and the beginning of an emergent transport to this facility. During that time, the patient suffered a witnessed 10-minute tonic-clonic seizure. After arrival here, the patient was also intubated and admitted to the ICU. The patient was then evaluated here in the ICU for what sounds like a cardiac or respiratory arrest, followed by neurologic sequelae. In speaking to the in great detail, both during ICU rounds this morning and this afternoon, she states that the patient had been complaining of a quite severe headache and occasionally indicating he may have had some abdominal pain over three or four days prior to yesterday's dramatic events. At no point, though, did he say he had any fever or chills, and at no point was he ever confused or disoriented up until the more overt events yesterday. There was a history, perhaps 20 years ago, where he had some gallbladder trouble but nothing was done about it. The patient is known to have diabetes but is "in" denial and takes no meds and follows no diet for it. He takes no medications on a regular basis, though has had some troubles apparently with methamphetamine and pain meds in the past but apparently not recently. It is said that the patient does not consume alcohol, and his tox screen has been negative here. PAST MEDICAL HISTORY: 1. Hypertension. 2. Chronic low back pain. 3. Diabetes, without treatment. 4. History of childhood febrile seizures, which never occurred in adulthood. 5. History of polysubstance abuse but apparently primarily oral prescription pain meds, as well as methamphetamine. 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 He lives with his spouse on [facility]. He, as mentioned, has some polysubstance abuse issues but apparently no IV drugs and no alcohol. He is a cigarette smoker. He has not traveled significantly at all in many, many years. The family has cats and dogs at home. He does not eat any unusual or uncooked foods, and has no unusual exposures at all. FAMILY HISTORY: Taken from the patient's mother who is present, and she states that there is no family history of TB at least in so far as she is aware in first or second-degree relatives. REVIEW OF SYSTEMS: The patient is intubated and sedated. There is obviously no additional history from him. PHYSICAL EXAMINATION: Reveals an afebrile gentleman. Temp 37.4, pulse 90, respiratory rate 17, blood pressure 96/53. He is saturating 95% on 40 and 5 of PEEP. He is quite sedated and not taking spontaneous breaths at this point, and the nurses report that if his sedation is in anyway interrupted, he becomes very agitated. Examination of the head reveals no obvious trauma, though it is reported he may have struck the right side of his head during yesterday's events. His eyes are without conjunctivitis or scleral icterus. Pupils are mid range. No conjunctivitis. Nose normal. Oral cavity with oral endotracheal tube and oral gastric tube in place. He has a right-sided central line, which appears uninfected. His neck is completely supple, and I checked several times. The lungs are clear with the exception of some rales at the bases. Cardiac tones: Regular rate and rhythm, without murmur. The abdomen is soft and apparently nontender, though, of course, he is intubated and quite sedated. No hepatosplenomegaly is appreciated. There is no suprapubic tenderness at all. He has a normal penis and scrotum. He has not have inguinal adenopathy. He just underwent a cardiac cath, which was basically normal in terms of coronary artery disease, and there is an area in the right groin that was obviously prepped for that procedure and looks benign. The extremities are free of cellulitis or edema. There is no evidence for synovitis. No skin rash at all. No peripheral stigmata of endocarditis. LABORATORIES: Include white count 24,000 yesterday, today 20. His platelet count 238,000. Diff, 79% segs. His creatinine 1.1. Troponins are positive at 0.92. First procalcitonin 0.17. LFT completely normal. Albumin 4.1. Urinalysis without white cells. Tox screen negative. Micro studies include two sets of blood cultures that were done yesterday evening in the ED that are pending. Additionally, we have a MRSA screen, which is negative and a sputum, which shows rare polys, rare epithelial cells and some mixed kathryn which is essentially of no value. IMAGING: Reviewed on the computer screen carefully. A chest x-ray and CT scan of the chest show really bilateral lower lobe infiltrates which could be aspiration, atelectasis, or early pneumonia. The patient's CT of the abdomen shows nothing of great interest. IMPRESSION: This is a confusing case of a 46-year-old, noncompliant diabetic gentleman with hemoglobin A1c around 11 who was admitted after he was found down with frothy sputum at home. The exact preceding events are a bit unclear but one thing that is clear is that he complained bitterly of a headache for about four days which is atypical for him. This apparent cardiac or cardiopulmonary arrest was followed by seizure activity, which is new for the patient. His childhood history of febrile seizures in no way predisposes towards adult seizures, and the combination of severe headache for several days, followed by abnormal mental status, followed by seizure certainly raises questions about a central nervous system event as the precipitating cause here. This could surely be structural or a primary seizure disorder but I am concerned about the possibility of meningitis or encephalitis. Nothing about this case so far would argue strongly against the diagnosis of bacterial meningitis and certainly herpes or varicella zoster virus encephalitis could present exactly like this. There are no unusual exposures in this patient to suggest an arbovirus or rickettsial process. It is also possible that the bilateral infiltrates seen on the CT of the chest, abdomen and pelvis, as well as the chest x-ray, could be a primary bilateral pneumonia which caused these events but the history does not sound compatible with that, and I think these are secondary phenomena. This case discussed extensively during rounds this morning, as well as this afternoon, again with the intensive care unit team and nurses. RECOMMENDATIONS: 1. A lumbar puncture should be done as soon as is feasible and this should be sent for the multiplex PCR, as well as routine cultures and Gram stain, as well as glucose, protein and cell count. 2. We await the pending blood cultures. 3. Sputum is bland and will not be terribly helpful. 4. If not already available, I would do urine pneumococcal and legionella screens. 5. A procalcitonin should be checked tomorrow morning. 6. Antibiotics in this gentleman with history of KEFLEX allergy could reasonably include meropenem in a dose of 2 g IV q.8 h. plus acyclovir 10 mg/kg every 8 hours plus vancomycin. Meropenem has reasonable coverage against listeria, which I think is unlikely in this 46-year-old gentleman, so will not use ampicillin. Meropenem will provide broad coverage for both bacterial meningitis, as well as aspiration pneumonia. Vancomycin was included for the possibility of a MRSA infection either rising in cerebrospinal fluid or systemically until we have additional culture evidence, and acyclovir is an important drug until we have back our spinal fluid.
--- NOTE | 2016-09-13 15:19 | NUR ---
Respiratory Pt transported to cathlab on transport vent. Rt at bedside during procedure,1 hr, transported back to room.
[2016-09-13] MEDS: Meropenem Inj 2,000 MG in 0.9% Sodium Chloride 100 ML IV SCH ×2 (15:38→21:47)
[2016-09-13 15:41] LABS: INR 0.96 ratio
--- NOTE | 2016-09-13 16:25 | NUR ---
Social Work: Screen/Multidisciplinary Rounds D: Per EMR review, pt is a 46 year old male admitted for Altered mental Status, acidosis. Pt is [facility] medicaid. PCP is listed as other physician. NOK is Ainsley Willard, mother. Advanced directives not completed. Readmit score is high, 4/8. A: Pt lives on [place] with family. Pt discussed in am rounds. pt is currently vented in CCU. DIE CUTTER APPRENTICE will attempt to see the patient to complete IA when pt is appropriate or family is available. A: DIE CUTTER APPRENTICE to continue to follow and will complete assessment when pt is able to engage or family is present. RYAN Navarro
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
--- NOTE | 2016-09-13 17:06 | DRSVH ---
PROCEDURE: X-RAY LUMBAR PUNCTURE ([id number]) INDICATIONS: Acute Encephalopathy TECHNIQUE: The indications, alternatives, benefits, risks, and complications were explained to the patient. Nj haro informed consent was obtained and placed in the chart. The patient was placed in a prone positi on on the fluoroscopy table, and a level was chosen for percutaneous access under fluoroscopic guidan ce. The site was prepped and draped in a sterile fashion. After local anaesthetic, a spinal needle was then used to enter the intrathecal space, with return of cerebrospinal fluid. Opening pressure o f 21 mm HG. After obtaining sufficient fluid, the needle was then withdrawn, and a bandage applied to the punctur e site. FINDINGS: Puncture level: L4-5 Needle: Spinal needle. Opening pressure: Not requested. CSF volume and description: 8 cc clear CSF Medications: 1% lidocaine for anaesthesia. Complications: none Laboratories: As ordered by referring clinician. IMPRESSION: Successful fluoroscopically guided lumbar puncture. Dictated by: Henrry Dunbar M.D. on 09/13/2016 at 17:04 Approved by: Henrry Dunbar M.D. on 09/13/2016 at 17:05
--- NOTE | 2016-09-13 17:06 | NUR ---
Respiratory Pt transported to fluoroscopy, Rt on S/B in procedure to monitor vent and Pt movement, 1 hr, transport back to . Uneventful, no complications
[2016-09-13 17:26] LABS: APPEARANCE,CSF CLEAR (CLEAR); WHITE BLOOD CELL,CSF 2 /mm3 (0-5)
[2016-09-13 17:27] LABS: COLOR,CSF COLORLESS (COLORLESS)
--- NOTE | 2016-09-13 19:24 | NUR ---
P: Respiratory distress I: Pt propofol decreased to 30mcqs/kg/hr and pt woke up and was fighting. Not following commands but grabbing at ETT. Propofol increased back to 50mcqs with in the room. Insulin gtt dc'd. NS infusing at 150cc/hr. Fentanyl 100mcqs/hr. BP low and norepinephrine gtt started and is at 0.08mcqs/kg/min. Cheetah on and numbers okay except SVR 682. OGT LCS with 300cc of green fluid output. Montelongo patent and drained 1150cc of dark cynthia cloudy urine. Pt went to heart cath and had clean coronaries. Rt groin site without bleeding or hematoma. Pt taken to interventional radiation and pt placed prone and lumbar puncture done. Pt awakens easily and needs bolus of both propofol and fentanyl for sedation. Turned Q 2 hours. Oral care Q 4 hours done. NPO. NSR. Family at bedside and updated on pt's condition and plan of care. E: Stable S: Restraints on for pt safety. Frequent rounding.
[2016-09-13] MEDS: fentaNYL 2,500 mCg/250 mL 2,500 MCG in IV Premix 1 EACH IV SCH (19:51)
[2016-09-13] MEDS ORDERED: Vancomycin/500 mL NS IV SCH ×2 (20:30)
[2016-09-14] VITALS (11 sets, daily range): BP systolic 102–145; BP diastolic 54–77; PULSE 66–80; RESP 17; O2SAT 92–98
[2016-09-14 01:53] LABS: APPEARANCE,URINE CLEAR (CLEAR,HAZY); COLOR,URINE YELLOW (YELLOW); OCCULT BLOOD,URINE MODERATE (NEGATIVE); PH,URINE 5.5 (5.0-8.0); UROBILINOGEN,URINE NORMAL (NORMAL)
[2016-09-14] MEDS: Insulin Human REGular 300 Unit/3 mL Inj SUBQ SCH ×2 (03:07→08:11)
[2016-09-14] MEDS: Propofol Inj 1,000,000 MCG in IV Premix 1 EACH IV SCH ×5 (03:25→19:52)
[2016-09-14] MEDS: 0.9% Sodium Chloride 1,000 ML IV SCH ×4 (03:25→20:16)
--- NOTE | 2016-09-14 04:16 | ABG ---
DateTimeAnalyzed 04:07:07 -_ pH ____7.366 - 7.350 7.450 pCO2 ___37.1__ -mmHg 35.0 45.0 pO2 ___52.2__ -mmHg 69.0 116 HCO3- ___21.2__ -mmol/L 22.0 26.0 ABE ___-3.8__ -mmol/L tHb ___13.7__ -g/dL O2Hb ___86.2__ -% COHb ____1.2__ -% 1.5 MetHb ____0.2__ -% sO2 ___87.5__ -% FIO2 ___40.0__ -% PEEP ____5.0__ -cmH2O Set_RR 17 -b/min Vt __550.0__ -L Drawn By MK - Date/Time Notified____ 04:15:00 -_ Spontaneous_RR 17 -b/min Oxygen Device 1 VENTILATOR - Notified By MK - Notified Whom Doc lester RN - K+ ____3.6__ -mmol/L tO2 ___16.7__ -Vol% Luis test _Positive -
[2016-09-14] MEDS: Chlorhexidine 0.12% 15 mL Oral Solution MT SCH ×5 (05:06→20:20)
[2016-09-14] MEDS: Meropenem Inj 2,000 MG in 0.9% Sodium Chloride 100 ML IV SCH ×3 (05:06→23:00)
--- NOTE | 2016-09-14 05:46 | NUR ---
Family/Montelongo Irrigation/UA Pt's alf girlfriend at bedside with son. RN noticed today that Mother's name phone number had been crossed out and replaced with "" and a telephone number. Mother had called during the middle of the night to receive update on patient. Patient states frustration from other family members related to not sharing information. Mother states she will be in to the hospital today to visit and check up on the patient. Montelongo was draining little to no urine for the first few hours of the shift. RN informed MD. obtained sample from the bag and was sent for UA. Bag switched to graduated cylinder draining bag for closer monitoring of hourly I&O. Montelongo irrigated with 70cc of sterile saline. Montelongo returned large amount of cynthia colored urine. informed. Norepinephrine titrated down throughout the night. Pt becomes extremely agitated during any bedside care, especially oral care and requires additional Propofol to not pull out IVs/tubing lines/Montelongo. Pt remains restrained for his safety and to protect lines/airway.
[2016-09-14 06:59] LABS: Mean Corpuscular Hemoglobin 30.5 pg (27.0-35.0); Mean Corpuscular Volume 86.8 fL (81-100)
[2016-09-14] MEDS: fentaNYL 2,500 mCg/250 mL 2,500 MCG in IV Premix 1 EACH IV SCH (08:39)
[2016-09-14] MEDS: ACYCLOVIR IV SCH ×2 (08:45→16:37)
[2016-09-14] MEDS: SODIUM CHLORIDE 0.9% IV SCH ×2 (08:45→16:37)
--- NOTE | 2016-09-14 08:52 | PROG NOTE ---
[address] [address] PROGRESS NOTE PATIENT: FROYLAN FRAGA : 1970 MR#: [id number] ADMIT: 09/12/2016 JOB ID: [id number] DATE: 09/14/2016 INFECTIOUS DISEASE FOLLOW UP NOTE: REASON FOR FOLLOWUP: Headache and seizures in a diabetic gentleman. INTERVAL HISTORY: Overnight, the patient has been weaned off vasopressors. He remains relatively stable on the ventilator but at 50% instead of 40% yesterday. He continues to be agitated when his sedation is decreased and he remains heavily sedated on the ventilator at this point. Note that he did undergo a lumbar puncture yesterday as we were hoping to achieve. This case discussed at the bedside with the ICU nurse as well as the patient's spouse. The patient himself, of course, is intubated and sedated. There is no additional history available from him. PHYSICAL EXAMINATION: Reveals a gentleman who has been afebrile since admission. Temperature 37.3, pulse 76, respiratory rate 17, blood pressure 119/66. He is saturating well but on 50% and 10 of PEEP. His head is without evident trauma. Eyes without conjunctivitis or asymmetric pupils. Oral endotracheal tube, orogastric tube in good position. His intravenous lines include a central line appearing without infection. Lungs: Relatively clear. Cardiac tones: [place] and without murmur. Abdomen without focal mass. Extremities basically negative. LABORATORIES: Include white count which has dropped from 24,000 a couple days ago to 13,000 today. No left shift is noted. Creatinine 0.88 which is improved. Cerebrospinal fluid had two white cells, 240 red cells, glucose 191, reflecting his hyperglycemia and a protein 114. The CSF PCR panel is completely negative. The blood cultures negative at this point. Sputum from the endotracheal tube with rare polys, not a useful sample. MRSA screen of the nares negative. IMAGING: Our imaging to date includes the brain CT which showed the hematoma in the right parietal scalp. Otherwise negative. We are unable to get an MRI scan at this point due to the patient's sedation. Chest x-ray continues to show retrocardiac infiltrate which is fairly subtle and could represent atelectasis or pneumonia. There is also some subtle infiltrate at the right base which likewise could be infiltrate or pneumonia. IMPRESSION: This is a confusing case of a 46-year-old uncontrolled diabetic who reportedly had four days or so of headaches and then was found down with frothy sputum which briefly apparently required CPR though it is uncertain if he had a cardiac arrest. He then had a long seizure and was intubated. Initial evaluation focused on concerns about possible underlying cardiac disease, which have now been dispelled with a normal cardiac catheterization, and DEPUTY CONTROLLER infection precipitating this series of events. The finding of only two white cells in the spinal fluid does not completely exclude the possibility of an encephalitis such as herpes simplex or VZV though it makes it much less likely. A recent study from [place] showed that up to 20% of people with herpes simplex encephalitis can start off with relatively acellular cerebral spinal fluid. What argues probably more strongly against herpes simplex, of course, is the negative PCR but a small percentage of people early in the course of herpes simplex encephalitis can have negative CSF PCR. RECOMMENDATIONS: 1. Will drop the vanco as I see no evidence of MRSA here. 2. Will continue with meropenem at least for a couple days which will provide additional DEPUTY CONTROLLER coverage though it does not appear in any way that he has a bacterial meningitis but will also provide coverage for possible aspiration pneumonia. 3. Will continue with the acyclovir until the patient wakes up, or we have another satisfactory explanation for what has happened. In classic studies by Katiana and his group in [place], it was shown that a small percentage of people with herpes encephalitis will not have a positive PCR in the first tap, but essentially everyone does by day four or five of their illness. If the patient continues to be encephalopathic over the next 2-3 days, I would repeat the lumbar puncture for a second CSF PCR analysis, and if that second HSV PCR is negative, we could drop the acyclovir; but until we have an explanation for his encephalopathy and seizures, I would continue the acyclovir on the off chance that he is one of those individuals in whom the first PCR is negative. SUMMARY OF RECOMMENDATIONS: 1. Drop vanco. 2. Will continue with meropenem for a course of probably 5-7 days. 3. Will continue with the high-dose acyclovir and perhaps do another lumbar puncture in three of four days if we do not have any other explanation for his encephalopathy. 4. Note that I will be out of town the next three days returning on September 18, but I can be reached by telephone or text about this or any other patient.
--- NOTE | 2016-09-14 10:52 | NUR ---
NUTRITION FOLLOW-UP: ASSESS: Pt is a 46 YO male admitted with AMS and seizure activity, following headache lasting 4 days prior to admission. He remains intubated and sedated. There is concern for aspiration and possible meningitis; lumbar puncture completed with results pending. Pt has history of type 2 diabetes; however, he is significantly medication noncompliant. PMHX: HTN, type 2 diabetes, back pain, polysubstance abuse, smoking. LABS: Reviewed. Na 146, Chloride 117, Glu 224, A1c 10.4, Ca 7.7. MEDS: Reviewed. Insulin, precedex, keppra. Propofol rate currently 27.9 ml/hr providing 737 kcal/day. GI: No BM reported since admission x 2 D. SKIN: Edvin 13. WT: 100.3 kg, BMI 30.0 kg/m2. Admit weight: 96kg, BMI 29.5kg/m2, IBW 78kg DIET: NPO 2 D. EST. NEEDS: vent Kcals: 1920-2400kcal/day (20-25kcal/kg) Pro: 145-170g/day (1.5-1.8g/kg) Fluids: ~2400ml/day (25ml/kg) NUTRITION DIAGNOSIS: 1) Inadequate oral intake related to decreased ability to consume sufficient energy as evidenced by current NPO status - PERSISTS. 2) Altered nutrition related lab values related to endocrine dysfunction as evidence by A1C of 10.4 and elevated BG levels - PERSISTS. NUTRITION INTERVENTION: 1) Unsigned enteral feeding orders in chart for MD authorization, as follows. Initiate Glucerna 1.5 @ 10ml/hr. Once tolerance established, advance 10ml every 6 hrs to goal rate 50ml/hr to provide 1650 kcal (2387 kcal w/propofol) and 91 g protein. In addition, once enteral feeding advanced beyond trophic rate, racommend add 5 packets Prosource liquid protein five times per day to meet 100% nutrient needs. 2) Adjust goal rate based on daily propofol rate. MONITOR / EVAL: NPO/vent status, nutrition support initiation, GI, labs, wt, poc , nutrition status. Will continue to monitor per high nutrition risk guidelines.
--- NOTE | 2016-09-14 11:21 | NUR ---
Palliative Care Referral09/14/16 Palliative Care referral received from Dr. Horta to assist with Goals of Care discussion. Pt. is 46yo man admitted to [facility] on 09/12/16 post seizure. Pt. has past medical history of hypertension, diabetes, chronic back pain. He is currently unresponsive. Due to current high service census, Palliative Care may not see pt. until 09/17/16. Dr. Horta aware of potential delay in responding to referral. Dr. Horta will consider referring pt./family to Spiritual Care for emotional support related to this acute illness. Estela Rivera MSW, [facility] Palliative Care Services
--- NOTE | 2016-09-14 13:06 | PROG NOTE ---
[address] [address] PROGRESS NOTE PATIENT: FROYLAN FRAGA : 1970 MR#: [id number] ADMIT: 09/12/2016 JOB ID: [id number] DATE: 09/14/2016 PULMONARY CRITICAL CARE FOLLOW UP NOTE: PROBLEMS: 1. Seizure disorder. 2. Hypertension, uncontrolled. 3. Diabetes mellitus, uncontrolled. SUBJECTIVE: None. OBJECTIVE: Temperature 36.5 with T-max being 37.3, pulse 72-85, respiratory rate 17 with ventilator set at 17, blood pressure 102/54, O2 sat on FiO2 50%, PEEP of 5, is 94%. I and O shows 4.5 L in, 1.6 L out. General appearance: Heavily sedated. Apparently extremely agitated with purposeless movements when sedation decreased. Eyes: Conjunctivae are pink. Pupils about 2 mm and seemingly reactive. Nose and throat could not be examined. Chest: Clear anterolaterally with a tidal volume of 550, PEEP of 5, peak inspiratory pressure 26, plateau 20. Heart: Regular rhythm. Heart tones normal. Abdomen is soft. Maybe a few bowel tones. Extremities: Warm. No cyanosis nor pretibial edema. LABORATORY DATA: Shows a white count of 13,100. No differential available. Hemoglobin 12.3. Platelet 190,000 and decreasing. Sodium 146, potassium 3.9. Chloride 117. CO2 is 20. BUN 12, creatinine 0.8, and improving. Glucose elevated at 224. Calcium 7.7. CSF shows two white cells, 240 red cells. CSF glucose is 191 with a serum glucose at that time being maybe 228, down from a peak of 657 the day previously. CSF total protein 1.14, elevation presumably due to seizures. CSF PCR negative for bacteria as well as viral studies. Sputum shows rare polys with mixed normal kathryn on Gram stain. Growing only light normal kathryn. ASSESSMENT: 1. Altered level of consciousness. Remains extremely agitated and purposeless. Doubt this is postictal in nature. Has had an EEG earlier today. Hopefully, that will be read soon and we can get some further insight into his behavior. 2. Diabetes. Sugars doing a bit better. Still a little bit higher than I would like with sugars in the low 200s at the moment. 3. Hypertension. Blood pressure currently well controlled, and in fact, maybe a little bit low. Yesterday, was running 140/77, today more of 102/54, though this is directly related to propofol, current propofol infusion being 60 mcg per kg per hour along with fentanyl. 4. Altered mental status does not appear to be due to meningitis. However, Dr. Montalvo's note describing the vagaries of herpes encephalitis greatly appreciated and will continue with the acyclovir repeating the spinal tap in a few days if an alternative diagnosis is not forthcoming. Await the EEG. 5. Free water deficit. Add water to the tube feeding. 6. Potassium 3.9. A little bit low and I think could be added to the tube feedings. Discussed the current findings with the and a brother. Brought them up to date with the test results that are still pending as well as plan. TIME SPENT: In critical care 40 minutes.
--- NOTE | 2016-09-14 13:08 | PCM.PNMED ---
Subjective Date of Service Sep 14, 2016 Subjective pt remained on vent, no chg of MS, on sedation, CSF looked sterile, PCR negative for virus, Acyclovir and meropenem continued EEG obtained today, awaits result updated at the bedside, provided emotional support, Exam Vital Signs Vital Sign - Last Date Time Temp Pulse Resp B/P Pulse Ox O2 Delivery O2 Flow Rate FiO2 09/14/16 11:20 72 102/54 94 50 09/14/16 11:08 36.5 17 Mechanical Ventilator 09/12/16 17:31 15 Intake and Output 09/13/16 09/13/16 09/14/16 Cumulative From/Thru 15:00 23:00 07:00 09/12/16 17:31 - 09/14/16 05:40 Intake Total 3181 ml 3773 ml 73368 ml Output Total 1450 ml 1300 ml 4400 ml Balance 1731 ml 2473 ml 6876 ml Intake Oral 0 ml 0 ml IV Total 3181 ml 3773 ml 98355 ml Output Urine Total 1150 ml 1000 ml 3800 ml Gastric Drainage Total 300 ml 300 ml 600 ml # Bowel Movements 0 0 Exam sedated, on vent. RASS-4, Pupills constricted bilaterally, not reactive to light, no corneal reflex no JVD, MMM, no LAD RRR, nl s1, s2 no mrg CTAB, no w,c S,ND,NT,normoactive BS+ warm, no edema, pulses 2/2 IVs and Medications Medications Reviewed: Medications were reviewed in detail Lab and Diagnostics Result Diagram: 09/14/1662709/14/16627 X-Rays, CTs and MRIs CT BRAIN WITHOUT CONTRAST IMPRESSION: No acute intracranial process. Right parietal scalp swelling/ hematoma. Approved by: Iván Quarles M.D. on 09/12/2016 at 18:29 PROCEDURE: CT CHEST, ABDOMEN AND PELVIS WITH CONTRAST IMPRESSION: Bilateral dependent consolidations suggesting aspiration but superimposed pneumonia cannot be excluded. Recommend clinical correlation. Elsewhere, no acute abnormality. Normal appendix. Colonic diverticulosis without evidence of acute inflammation. Intraluminal gas within the bladder although this could be from catheterization since a Montelongo catheter is present. Please correlate clinically. Approved by: Iván Quarles M.D. on 09/12/2016 at 19:08 X-RAY CHEST ONE VIEW, PORTABLE IMPRESSION: Bilateral perihilar and medial basilar patchy opacities likely aspiration/ atelectasis although cannot exclude pneumonia. Please correlate clinically. Endotracheal tube with the tip projecting approximately 5 cm above the shelbi. Approved by: Iván Quarles M.D. on 09/12/2016 at 20:00 Assessment & Plan Patient George Pan is a 46-year-old man with past medical history remarkable for hypertension, chronic back pain and diabetes who presents to [facility] with altered mental status and reported seizure activity in route by EMS. acute, active Shock state, POA, likely due to sedatives propofol, post-inbutation, possible septic, required vasopressor, -target MAP>65, titrate Levophed -bolus as needed -appreciate ICU team management, Acute encephalopathy, POA, unclear etiologies yet: ddx: seizure, meningitis, CVA. Utox unremarkable. Initially suspected AMI given [facility], however, cardiac cath 09/13 showed non obstructive dz. LP 09/13 was unremarkable. CSF PCR ngtd. -appreciate ICU team management, ID, cardiology input -started abx/ antiviral to cover meningitis/encephalitis -sedation, Vent bundle per protocol, -follow up EEG, possible MRI with sedation bolus -s/p keppra 1.5g, continue for now 500mg bid -NG for feeding Troponemia, peaked at 0.423, trending down, likely ischemic in the setting of acute shock state, acute respiratory failure, -currently on asa, no BB/statin/ACEI, HHS, POA, in the setting of uncontrolled [id number], noncompliance, reported sx of overt hyperglycemia, a1c11.3, [id number] on admission, ketone neg in UA. - Patient placed on the non-DKA protocol insulin drip, consider bridge with long acting leukocytosis with poly77, POA, probable infectious status, meningits as above, aspiration PNA or stress induced, recent steroid use. CXR showed retrocardiac and right basilar opacities -abx as above, trends fever curve, PCT, wbc, appreciate ID input. chronic, stable, resolved YOVANY, likely due to prolonged down time, mild rhabdomyolysis, [id number], FENA at 0.4%, resolved with IVF, Acute severe lactic acidosis due to decreased tissue perfusion with arrest or possible indicator of seizure, rapidly resolved DVT prophylaxis: SCDs only given recent altered mental status with seizure activity makes anticoagulation contraindicated GI prophylaxis: PPI Patient is full code dispo:CCU appropriate, palliative care will see patient on Saturday, ordered spiritual support. GI Prophylaxis: Not indicated VTE Prophylaxis: SCDs VTE Mechanical Devices: Intermittant Pneumatic CD Resuscitation Status: CPR: Attempt Resuscitation Time spent 35min Teri Horta MD Sep 14, 2016 13:08
--- NOTE | 2016-09-14 13:09 | NUR ---
P: Agitation I: Pt does not track or follow commands. Pt gets very agitated with care. Propofol infusing at 60mcqs/kg/hr aware and agrees. Bolus of propofol drops the pt's BP and norepinephrine gtt remains off. Fentanyl increased to 150mcqs/hr. NS 150cc/hr. NS TKO with medications. Rt groin site with dressing dry and intact without hematoma.Montelongo patent and draining cynthia urine. OGT patent and draining blood tinged output. Dr. mobley and Pepcitim ordered. Discussed MRI with Dr. Radford and it has been decided that it would not be a safe transfer at this time. Updated pt's significant other and family on pt's condition and plan of care. EEG done. SCD's on. E: Stable. S: Restraints on for pt safety. Frequent rounding. Family at bedside.
--- NOTE | 2016-09-14 13:42 | NUR ---
Social Work: Initial Assessment/Multidisciplinary Rounds D: Pt discussed in am rounds. Pt remains in CCU on vent. CCU continues to follow the pt's care. No foreseeable timeline for extubation reported by MD. Pt screened in for assessment based on CCU status and multiple providers in care. DRIVER HELPER met with the pt's , Vini Hines ([phone]) at bedside to complete assessment and provide support. Sw role explained, contact information provided, declined d/c planning checklist. Pt and spouse live on [place]. 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 Pt has never required any home health or skilled rehab in the past. The is tearful during assessment and wanting information about pt's pending results. Bedside RN is aware and answering questions from pt's family. A: Pt who is I at baseline. P: Evolving; DRIVER HELPER to continue to follow pt's clinical course and assist with discharge planning throughout pts stay. RYAN Navarro Addendum: 09/14/16 at 1346 by DONG RODRIGEZ Amended: Links added.
[2016-09-14] MEDS: Norepineph 8,000 mCg/250 mL NS 8,000 MCG in IV Premix 1 EACH IV SCH (13:48)
[2016-09-14] MEDS ORDERED: Sodium Chloride LOK Flush 10 mL Syringe IVFLUSH PRN ×2 (14:20)
[2016-09-14] MEDS: Insulin Human REGular 300 Unit/3 mL Inj - Medium SUBQ SCH ×2 (14:21→20:24)
--- NOTE | 2016-09-14 14:22 | PROCED ---
[address] [address] EEG PATIENT: FROYLAN FRAGA : 1970 MR#: [id number] ADMIT: 09/12/2016 JOB ID: [id number] DATE OF SERVICE: 09/14/2016 REQUESTING PHYSICIAN: Dr. Clif Murcia CLINICAL HISTORY: The patient is a 46-year-old gentleman with mental status changes and a reported seizure currently on Keppra 500 mg two times daily plus other medications including propofol. DESCRIPTION: There are 8 hertz rhythmic and symmetric waveforms seen over the occipital head region intermixed with diffuse slowing. This is relatively low amplitude recording. Sleep spindles are seen in both hemispheres. There are no focal lateralizing or epileptiform abnormalities seen throughout the recording. ACTIVATION: Photic activation does not reveal any photic driving and no photoparoxysmal discharges. Hyperventilation cannot be performed; patient is intubated. RHYTHM STRIP: Regular rhythm. IMPRESSION: Normal EEG. Patient awake and asleep. No epileptiform abnormalities or seizure activity seen. Generalized slowing is likely due to medications. Repeat EEG without propofol is recommended if clinical suspicion for epilepsy is high. There is no evidence to suggest ongoing seizure activity seizures while the patient in this EEG. Clinical correlation advised. MTDD
[2016-09-14] MEDS: D5 0.45% NaCl + KCl 40 mEq/L 1,000 ML IV SCH (14:32)
[2016-09-14] MEDS ORDERED: Vancomycin Serum Trough XX ONE (19:30)
[2016-09-14] MEDS: Famotidine Inj 20 MG in IV Premix 1 EACH IV SCH (20:19)
[2016-09-15] VITALS (13 sets, daily range): BP systolic 105–152; BP diastolic 57–75; PULSE 66–110; RESP 12–22; O2SAT 91–99
[2016-09-15] MEDS: Chlorhexidine 0.12% 15 mL Oral Solution MT SCH ×7 (00:37→23:29)
[2016-09-15] MEDS: SODIUM CHLORIDE 0.9% IV SCH ×4 (00:37→23:31)
[2016-09-15] MEDS: ACYCLOVIR IV SCH ×4 (00:37→23:31)
[2016-09-15] MEDS: Propofol Inj 1,000,000 MCG in IV Premix 1 EACH IV SCH ×8 (00:39→23:28)
[2016-09-15] MEDS: fentaNYL 2,500 mCg/250 mL 2,500 MCG in IV Premix 1 EACH IV SCH ×2 (00:45→17:07)
[2016-09-15] MEDS: Insulin Human REGular 300 Unit/3 mL Inj - Medium SUBQ SCH ×4 (05:23→20:16)
[2016-09-15 05:27] LABS: BASOPHILS % (AUTO) 0.2 % (0-3); EOSINOPHILS % (AUTO) 2.7 % (0-5); MONOCYTES % (AUTO) 8.4 % (4-12); Mean Corpuscular Hemoglobin 30.1 pg (27.0-35.0); Mean Corpuscular Volume 88.3 fL (81-100); NEUTROPHILS % (AUTO) 67.2 % (40-74); Platelet Count 177 bil/L (150-400)
--- NOTE | 2016-09-15 05:29 | ABG ---
DateTimeAnalyzed 05:22:00 -_ pH ____7.471 - 7.350 7.450 pCO2 ___29.4__ -mmHg 35.0 45.0 pO2 ___62.2__ -mmHg 69.0 116 HCO3- ___21.2__ -mmol/L 22.0 26.0 ABE ___-1.2__ -mmol/L -2.0 2.0 tHb ___12.1__ -g/dL O2Hb ___91.8__ -% COHb ____1.2__ -% MetHb ____0.6__ -% sO2 ___93.5__ -% 25.0 FIO2 ___50.0__ -% PRVC 17 - PEEP ____5.0__ -cmH2O Set_RR ___17.0__ -b/min Vt __550.0__ -L Drawn By MM - Date/Time Notified____ 05:28:00 -_ Spontaneous_RR ___17.0__ -b/min Oxygen Device 1 VENTILATOR - Notified By MM - Notified Whom KERRY, RN - B 761 -mmHg tO2 ___15.7__ -Vol% Luis test N/A -
--- NOTE | 2016-09-15 06:08 | NUR ---
sedation/respiratory: Pt continuos to be on high rate of sedation. Pt does become very agitated with any stimulation requiring boluses of propofol. Pt tolerating vent well after ABGs this am orders were received for vent changes.
[2016-09-15] MEDS: D5 0.45% NaCl + KCl 40 mEq/L 1,000 ML IV SCH (06:16)
[2016-09-15] MEDS: Meropenem Inj 2,000 MG in 0.9% Sodium Chloride 100 ML IV SCH ×3 (06:19→22:42)
[2016-09-15 06:30] LABS: Magnesium 1.8 mg/dL (1.6-2.6); Phosphorus 1.5 mg/dL (2.5-4.9)
[2016-09-15] MEDS ORDERED: Potassium Phos (mEq) Inj 40 MEQ in Dextrose 5% 500 ML IV ONE (06:50)
[2016-09-15] MEDS: 0.9% Sodium Chloride 1,000 ML IV SCH ×3 (07:15→22:00)
--- NOTE | 2016-09-15 08:10 | DRSVH ---
PROCEDURE: X-RAY CHEST ONE VIEW, PORTABLE ([id number]) INDICATIONS: aspiration pneumonia TECHNIQUE: One view of the chest was acquired. COMPARISON: [facility], CR, XR CHEST 1VW (PORTABLE), 09/13/2016, 5:19. FINDINGS: Surgical changes and devices: Endotracheal tube 5.2 cm above the shelbi. There is a right internal ju gular central line with the tip in the mid superior vena cava. There is an NG tube into the stomach. lunchroom monitor leads are seen over the chest. Lungs and pleura: Bibasilar patchy streaky disease is present with loss of definition of the descendi ng aorta and domes of the diaphragm. There is less visualization of the descending aorta on the left than on the previous x-ray loss of further definition of the right hemidiaphragm since the previous x -ray. These findings indicate worsening infiltrates. Mediastinum: Mediastinal contours appear normal. Heart size is normal. Bones and chest wall: No suspicious bony lesions. Overlying soft tissues appear unremarkable. IMPRESSION: Worsening bibasilar infiltrates consistent with pneumonias.. Tubes and lines appropriately positioned. Dictated by: Mat Vivar M.D. on 09/15/2016 at 8:07 Approved by: Mat Vivar M.D. on 09/15/2016 at 8:08
[2016-09-15] MEDS: Famotidine Inj 20 MG in IV Premix 1 EACH IV SCH ×2 (08:44→19:49)
--- NOTE | 2016-09-15 10:26 | NUR ---
NUTRITION FOLLOW-UP: ASSESS: Pt is a 46 YO male admitted with AMS and seizure activity, following headache lasting 4 days prior to admission. He remains intubated and sedated. There is concern for aspiration and possible meningitis; lumbar puncture completed with results pending. Enteral feeding on hold related to bloody secretions last night. Pt has history of type 2 diabetes; however, he is significantly medication noncompliant. PMHX: HTN, type 2 diabetes, back pain, polysubstance abuse, smoking. LABS: Reviewed. Na 146, Chloride 115, Glu 203, A1c 10.4, Ca 7.7, Phos 1.5, Alb 2.5., Procalcitonin 0.15. MEDS: Reviewed. Insulin, keppra. Propofol rate currently 33.5 ml/hr providing 884 kcal/day. GI: No BM reported since admission x 3 D. SKIN: Edvin 13. WT: 102.4 kg, BMI 31.0 kg/m2. Admit weight: 96kg, BMI 29.5kg/m2, IBW 78kg DIET: NPO 3 D. EST. NEEDS: vent Kcals: 1920-2400kcal/day (20-25kcal/kg) Pro: 145-170g/day (1.5-1.8g/kg) Fluids: ~2400ml/day (25ml/kg) NUTRITION DIAGNOSIS: 1) Inadequate oral intake related to decreased ability to consume sufficient energy as evidenced by current NPO / vent status - PERSISTS. 2) Altered nutrition related lab values related to endocrine dysfunction as evidence by A1C of 10.4 and elevated BG levels - PERSISTS. NUTRITION INTERVENTION: 1) Enteral feeding orders signed by Dr. Radford but on hold due to bloody secretions. Recommendation is to initiate Glucerna 1.5 @ 10 ml/hr. Once tolerance established, advance 10ml every 6 hrs to goal rate 50 ml/hr to provide 1650 kcal (2534 kcal w/propofol) and 91 g protein. In addition, once enteral feeding advanced beyond trophic rate, recommend add 1 packet ProSource liquid protein five times per day to meet 100% nutrient needs. 2) Adjust goal rate based on daily propofol rate. MONITOR / EVAL: NPO/vent status, nutrition support initiation, GI, labs, wt, poc , nutrition status. Will continue to monitor per high nutrition risk guidelines.
--- NOTE | 2016-09-15 11:57 | ABG ---
DateTimeAnalyzed 11:50:00 -_ pH ____7.403 - 7.350 7.450 pCO2 ___35.1__ -mmHg 35.0 45.0 pO2 ___60.9__ -mmHg 69.0 116 HCO3- ___21.5__ -mmol/L 22.0 26.0 ABE ___-2.2__ -mmol/L -2.0 2.0 tHb ___13.3__ -g/dL O2Hb ___89.9__ -% COHb ____1.0__ -% MetHb ____0.9__ -% sO2 ___91.6__ -% 25.0 FIO2 ___60.0__ -% PRVC 550 - PEEP ____5.0__ -cmH2O Set_RR ___12.0__ -b/min Drawn By NB - Date/Time Notified____ 11:57:00 -_ Oxygen Device 1 VENTILATOR - Notified By NB - Notified Whom ___DR. KENDREGAN - B 762 -mmHg tO2 ___16.8__ -Vol% Luis test _Positive -
[2016-09-15] MEDS ORDERED: Albuterol-Ipratropium 3 mL Inhalation Solution NEB PRN (12:10)
[2016-09-15] MEDS ORDERED: Heparin 5,000 Unit/mL Inj SUBQ SCH (12:40)
--- NOTE | 2016-09-15 12:51 | PCM.PNMED ---
Subjective Date of Service Sep 15, 2016 Subjective pt had episode of fever, remained stable on vent, EEG on propofol normal per Exam Vital Signs Vital Sign - Last Date Time Temp Pulse Resp B/P Pulse Ox O2 Delivery O2 Flow Rate FiO2 09/15/16 09:00 71 116/60 95 60 09/15/16 08:00 37.5 12 Mechanical Ventilator 09/12/16 17:31 15 Intake and Output 09/14/16 09/14/16 09/15/16 Cumulative From/Thru 15:00 23:00 07:00 09/12/16 17:31 - 09/15/16 05:46 Intake Total 2418 ml 2098 ml 38315 ml Output Total 850 ml 1175 ml 6425 ml Balance 1568 ml 923 ml 9367 ml Intake Oral 0 ml IV Total 2418 ml 2098 ml 14766 ml Output Urine Total 500 ml 650 ml 4950 ml Gastric Drainage Total 350 ml 525 ml 1475 ml # Bowel Movements 0 Exam sedated, on vent. RASS-4, Pupills constricted bilaterally, not reactive to light, no corneal reflex no JVD, MMM, no LAD RRR, nl s1, s2 no mrg CTAB, no w,c S,ND,NT,normoactive BS+ warm, no edema, pulses 2/2 IVs and Medications Medications Reviewed: Medications were reviewed in detail Lab and Diagnostics Result Diagram: 09/15/1651409/15/1615 X-Rays, CTs and MRIs CT BRAIN WITHOUT CONTRAST IMPRESSION: No acute intracranial process. Right parietal scalp swelling/ hematoma. Approved by: Iván Quarles M.D. on 09/12/2016 at 18:29 PROCEDURE: CT CHEST, ABDOMEN AND PELVIS WITH CONTRAST IMPRESSION: Bilateral dependent consolidations suggesting aspiration but superimposed pneumonia cannot be excluded. Recommend clinical correlation. Elsewhere, no acute abnormality. Normal appendix. Colonic diverticulosis without evidence of acute inflammation. Intraluminal gas within the bladder although this could be from catheterization since a Montelongo catheter is present. Please correlate clinically. Approved by: Iván Quarles M.D. on 09/12/2016 at 19:08 X-RAY CHEST ONE VIEW, PORTABLE IMPRESSION: Bilateral perihilar and medial basilar patchy opacities likely aspiration/ atelectasis although cannot exclude pneumonia. Please correlate clinically. Endotracheal tube with the tip projecting approximately 5 cm above the shelbi. Approved by: Iván Quarles M.D. on 09/12/2016 at 20:00 Assessment & Plan Patient George Pan is a 46-year-old man with past medical history remarkable for hypertension, chronic back pain and diabetes who presents to [facility] with altered mental status and reported seizure activity in route by EMS. acute, active blood gastric contents, developed 09/14-, likely due to stress induced ulcer, continue pepcid, possible PPI, trend h/h Shock state, POA, likely due to sedatives propofol, post-inbutation, possible septic, required vasopressor, resolved -target MAP>65, titrate Levophed -bolus as needed -appreciate ICU team management, Acute encephalopathy, POA, unclear etiologies yet: ddx: seizure, meningitis, CVA. Utox unremarkable. Initially suspected AMI given [facility], however, cardiac cath 09/13 showed non obstructive dz. LP 09/13 was unremarkable. CSF PCR ngtd. EEG also normal. -appreciate ICU team management, ID, cardiology input -started abx/ antiviral to cover meningitis/encephalitis -sedation, Vent bundle per protocol, -possible MRI with sedation bolus at this point -s/p keppra 1.5g, continue for now 500mg bid -NG for feeding on hold given bloody gastric output Troponemia, peaked at 0.423, trending down, likely ischemic in the setting of acute shock state, acute respiratory failure, -currently on asa, no BB/statin/ACEI, HHS, POA, in the setting of uncontrolled [id number], noncompliance, reported sx of overt hyperglycemia, a1c11.3, [id number] on admission, ketone neg in UA. Patient placed on the non-DKA protocol insulin drip, -[id number], insulin bridged with long acting Humulin, continue for now leukocytosis with poly77, POA, probable infectious status, meningits as above, aspiration PNA or stress induced, recent steroid use. CXR showed retrocardiac and right basilar opacities -abx as above, trends fever curve, PCT, wbc, appreciate ID input. chronic, stable, resolved YOVANY, likely due to prolonged down time, mild rhabdomyolysis, [id number], FENA at 0.4%, resolved with IVF, Acute severe lactic acidosis due to decreased tissue perfusion with arrest or possible indicator of seizure, rapidly resolved DVT prophylaxis: SCDs only given recent altered mental status with seizure activity makes anticoagulation contraindicated GI prophylaxis: pepcid q12h Patient is full code dispo:CCU appropriate, palliative care will see patient on Saturday, ordered spiritual support. GI Prophylaxis: Not indicated VTE Prophylaxis: SCDs VTE Mechanical Devices: Intermittant Pneumatic CD Resuscitation Status: CPR: Attempt Resuscitation Time spent 35min Teri Horta MD Sep 15, 2016 12:47
--- NOTE | 2016-09-15 13:14 | PROG NOTE ---
[address] [address] PROGRESS NOTE PATIENT: FROYLAN FRAGA : 1970 MR#: [id number] ADMIT: 09/12/2016 JOB ID: [id number] PULMONARY CRITICAL CARE FOLLOWUP NOTE: DATE: 09/15/2016 PROBLEM LIST: 1. Seizure disorder. 2. Uncontrolled hypertension. 3. Uncontrolled diabetes mellitus. 4. Aspiration pneumonia. 5. Altered mental status. SUBJECTIVE: None. OBJECTIVE: Temperature 37.5 with T-max being 38.2 earlier this morning. Pulse 66-71, respiratory rate 17 with ventilator set at 12, blood pressure 110/60, O2 sat on FiO2 60%, PEEP of 5, is 97%. I and O shows 6.11 L, in 2.1 L out. General appearance: The patient responding to voice by opening his eyes. No attempt at response, but seems to be responding at least to voice with eye opening. Conjunctivae are pink. Pupils 1-2 mm. Chest: Good breath sounds bilaterally. Right lung is clear. Left lung has a few scattered crackles. Patient taking some spontaneous breaths on assist control, positive pressure volume ventilation. Heart: Regular rhythm. Heart tones normal. Abdomen is soft. Nondistended. Quiet. Extremities: No pretibial edema. Skin: No evidence of breakdown. LABORATORY DATA: White count of 10,200 down from 13,100. Normal differential with 67 polymorphonuclears, 21 lymphocytes, 8 monocytes. Hemoglobin 11.6, slowly decreasing. Platelet count 177,000, again slowly decreasing. Sodium 146, potassium 3.7, chloride 115, CO2 is 20, BUN 12, creatinine 0.96. Glucose moderately elevated 203. Calcium 7.7 with an albumin of 2.5. Phosphorus 1.5 with the patient receiving supplemental potassium phosphate. Magnesium normal 1.8. Bilirubin 0.2, AST 20, ALT 11, alkaline phos 48. Procalcitonin is unchanged at 0.15. Sputum Gram stain from a tracheal aspirate shows moderate polys with mixed normal kathryn. Arterial blood gases on FiO2 of 0.6, PEEP of 5, ventilator set at 12, with the patient breathing at 17 and tidal volume of 550 shows pO2 of 60, CO2 is 35, pH of 7.40. IMAGING: Chest x-ray shows increasing bibasilar infiltrates. There is pretty much loss of the left hemidiaphragm with increased consolidation in the retrocardiac area. Some increased opacification of the right heart border consistent with increasing right lower lobe opacities. ASSESSMENT: 1. Altered mental status. Seen improvement today. He is responsive. Off Nimbex and doing well with the current level of sedation. Hopefully as day goes on, we will be able to decrease the sedation a bit. 2. Aspiration pneumonia. Some increase in the bibasilar opacities. Likely represents progression of the intrapulmonary process present on admission. This represents the aspiration due to loss of consciousness at the time of the seizure. On broad-spectrum antibiotics. Will continue with acyclovir given the possibility though unlikely of herpes encephalitis. Will see how this progresses and decide in a few days whether he needs to continue the acyclovir, whether a repeat spinal tap is warranted, or whether it can just be discontinued. 3. The worsening respiratory status is likely due to secretions. They have been more copious. Will start nebulized medications to see if this would help as well as increased the PEEP to see if we can get a bit better oxygenation then we are currently doing without raising FiO2 to "toxic levels." 4. Observed seizure. Current EEG shows slowing. No epileptiform abnormalities or seizure activity seen. Generalized slowing felt to be due to the current medications. Will likely need a repeat EEG after things have improved. Will also likely need an MRI to evaluate him for new onset seizures. 5. Electrolyte abnormalities. Potassium a bit low. Receiving D5 half with K as well as K-Phos to replete phosphorus deficit. Will discontinue the D5 half and replete his water deficit with enteral water. Getting a fair amount of fluid and we can stop his "maintenance fluid" and start enteral feedings. 6. High endotracheal tube. Endotracheal tube a little over 5 cm from the main shelbi. That will be advanced 1-2 cm. PLAN: 1. Sputum for Gram stain, C and S. 2. Discontinue D5 half normal saline with potassium. 3. Enteral feeding with Glucerna at 10 mL an hour with water 40 mL q.4 h. flush for free water replacement. 4. Nebulized DuoNeb q.4 h. and q.2 h. p.r.n. dyspnea. 5. Continue broad-spectrum antibiotics. 6. Morning bloods consist of CBC with differential and platelets, CMP, magnesium, phosphorus, procalcitonin, arterial blood gases and a chest x-ray. Discussed the current situation with the family. Discussed his improving [employer]EL[employer] status. Also discussed the worsening respiratory status and the reasons thereof. CRITICAL CARE TIME: 60 minutes.
[2016-09-15] MEDS: Norepineph 8,000 mCg/250 mL NS 8,000 MCG in IV Premix 1 EACH IV SCH (14:00)
[2016-09-15] MEDS: Albuterol-Ipratropium 3 mL Inhalation Solution NEB SCH ×2 (14:58→20:08)
--- NOTE | 2016-09-15 16:07 | NUR ---
Social Work: Multidisciplinary Rounds Pt discussed in am rounds. Sw status remains unchanged. Pt remains in CCU, Vented and sedated. TRAVEL FREIGHT AND PASSENGER AGENT to continue to follow. Rashmi Chase MSW
--- NOTE | 2016-09-15 16:12 | NUR ---
Neuros/Ventilation.. Noted to be awakening to voice and will open eyes to command and track toward person speaking. Has been pulling away from oral care and was noted to lift hand purposefully toward ETT when unrestrained for turning. Lungs remain coarse with large amts of oral white secretions and mod amts creamy from ETT. Also noted to have thick light yellow nasal drainage.. MD updated. T max this shift was 37.8. Started on tubefeeds at 1600. Family here and updated by
--- NOTE | 2016-09-15 18:43 | NUR ---
Heparin.. Pt was started on Heparin subcutaneous dosing. Several hours after first dose was noted to have blood streaks in his nasal drainage and pink tinged urine. Dr Malina jane and brittney du.
[2016-09-16] VITALS (14 sets, daily range): BP systolic 112–149; BP diastolic 59–80; PULSE 89–104; RESP 16–22; O2SAT 90–96
[2016-09-16] MEDS: Albuterol-Ipratropium 3 mL Inhalation Solution NEB SCH ×6 (00:53→20:29)
[2016-09-16] MEDS: Propofol Inj 1,000,000 MCG in IV Premix 1 EACH IV SCH ×8 (01:30→21:31)
[2016-09-16] MEDS: Midazolam 100 mg/100 mL Premix IV SCH (02:12)
[2016-09-16] MEDS: Insulin Human REGular 300 Unit/3 mL Inj - Medium SUBQ SCH ×4 (02:20→20:58)
[2016-09-16] MEDS: 0.9% Sodium Chloride 1,000 ML IV SCH ×4 (03:15→22:35)
[2016-09-16] MEDS: Chlorhexidine 0.12% 15 mL Oral Solution MT SCH ×5 (04:22→20:51)
--- NOTE | 2016-09-16 05:25 | ABG ---
DateTimeAnalyzed 05:17:00 -_ pH ____7.383 - 7.350 7.450 pCO2 ___37.4__ -mmHg 35.0 45.0 pO2 ___82.3__ -mmHg 69.0 116 HCO3- ___21.8__ -mmol/L 22.0 26.0 ABE ___-2.4__ -mmol/L -2.0 2.0 tHb ___13.4__ -g/dL O2Hb ___94.2__ -% COHb ____1.0__ -% MetHb ____0.8__ -% sO2 ___95.9__ -% 25.0 FIO2 __100.0__ -% PRVC 16 - PEEP ____8.0__ -cmH2O Set_RR ___16.0__ -b/min Vt __550.0__ -L Drawn By MM - Date/Time Notified____ 05:25:00 -_ Spontaneous_RR ___12.0__ -b/min Oxygen Device 1 VENTILATOR - Notified By MM - Notified Whom _AMIE, RN - B 764 -mmHg tO2 ___17.8__ -Vol% Luis test N/A -
[2016-09-16] MEDS: Meropenem Inj 2,000 MG in 0.9% Sodium Chloride 100 ML IV SCH ×3 (06:18→22:35)
[2016-09-16 06:49] LABS: BASOPHILS % (AUTO) 0.1 % (0-3); EOSINOPHILS % (AUTO) 0.7 % (0-5); MONOCYTES % (AUTO) 5.5 % (4-12); Mean Corpuscular Hemoglobin 30.2 pg (27.0-35.0); Mean Corpuscular Volume 88.7 fL (81-100); NEUTROPHILS % (AUTO) 84.8 % (40-74); Platelet Count 189 bil/L (150-400)
--- NOTE | 2016-09-16 07:13 | NUR ---
Fever/Respiratory/Agitation Febrile Tmax 39.2 C, given tylenol per ogt, applied cooling measures, temp down to 38.0C; Had intermittent agitation through the night, increased sedation,max on propofol and fentanyl gtt, pt remains agitated, HR upto 140's, RR mid 30's and desats to as low as 82%, added versed gtt, fio2 upto 100%, 02 sats improved to 93-94%, am abg resulted with p02 82. Bp stable, tolerating tube feeds with low residuals.
[2016-09-16 07:29] LABS: Magnesium 1.6 mg/dL (1.6-2.6); Phosphorus 2.9 mg/dL (2.5-4.9)
--- NOTE | 2016-09-16 08:36 | DRSVH ---
PROCEDURE: X-RAY CHEST ONE VIEW, PORTABLE ([id number]) INDICATIONS: aspiration pneumonia TECHNIQUE: One view of the chest was acquired. COMPARISON: [facility], CR, XR CHEST 1VW (PORTABLE), 09/15/2016, 5:15. FINDINGS: Surgical changes and devices: Endotracheal tube, nasogastric tube are unchanged. Right-sided central venous catheter appears to demonstrate more forward placement with distal tip now overlying the dista l SVC/right atrial junction. Lungs and pleura: Bilateral patchy pulmonary opacities are present more prominent when compared to pr ior exam. Mediastinum: Mediastinal contours appear normal. Heart size is normal. Bones and chest wall: No suspicious bony lesions. Overlying soft tissues appear unremarkable. IMPRESSION: Increased appearance of bilateral pulmonary opacities which could be access services representative of pn eumonia, edema and/or atelectasis. There has been interval migration of right-sided central venous ca theter as above. Recommend repositioning as clinically indicated. Dictated by: Ev Jerome M.D. on 09/16/2016 at 8:32 Approved by: Ev Jerome M.D. on 09/16/2016 at 8:34
[2016-09-16] MEDS: Famotidine Inj 20 MG in IV Premix 1 EACH IV SCH ×2 (09:08→20:51)
[2016-09-16] MEDS: ACYCLOVIR IV SCH ×2 (09:09→16:04)
[2016-09-16] MEDS: SODIUM CHLORIDE 0.9% IV SCH ×2 (09:09→16:04)
--- NOTE | 2016-09-16 12:30 | PCM.PNMED ---
Subjective Date of Service Sep 16, 2016 Subjective pt had fever 39.2, had increased sedation due to agitation, noted thick secretion, required FiO2 100%, CXR this AM looked more congested. ABG on [id number] Po2 82.3, Pplat 19, Ppeak high 30s, abx/antiviral running, Exam Vital Signs Vital Sign - Last Date Time Temp Pulse Resp B/P Pulse Ox O2 Delivery O2 Flow Rate FiO2 09/16/16 11:29 92 122/68 90 100 09/16/16 08:55 19 Mechanical Ventilator 09/16/16 08:00 37.5 09/12/16 17:31 15 Intake and Output 09/15/16 09/15/16 09/16/16 Cumulative From/Thru 15:00 23:00 07:00 09/12/16 17:31 - 09/16/16 06:18 Intake Total 2811 ml 1901 ml 79615 ml Output Total 1000 ml 1050 ml 8475 ml Balance 1811 ml 851 ml 67597 ml Intake Oral 0 ml IV Total 2785 ml 1585 ml 77523 ml Tube Feeding 26 ml 196 ml 222 ml Tube Irrigant 120 ml 120 ml Output Urine Total 950 ml 1050 ml 6950 ml Gastric Drainage Total 50 ml 1525 ml # Bowel Movements 0 0 0 Exam sedated, on vent. RASS-4, Pupills equal constricted bilaterally, reactive to light on Left side, no corneal reflex no JVD, MMM, no LAD RRR, nl s1, s2 no mrg CTAB, no w,c S,ND,NT,normoactive BS+ warm, no edema, pulses 2/2 IVs and Medications Medications Reviewed: Medications were reviewed in detail Lab and Diagnostics Result Diagram: 09/16/1662909/16/1630 X-Rays, CTs and MRIs CT BRAIN WITHOUT CONTRAST IMPRESSION: No acute intracranial process. Right parietal scalp swelling/ hematoma. Approved by: Iván Quarles M.D. on 09/12/2016 at 18:29 PROCEDURE: CT CHEST, ABDOMEN AND PELVIS WITH CONTRAST IMPRESSION: Bilateral dependent consolidations suggesting aspiration but superimposed pneumonia cannot be excluded. Recommend clinical correlation. Elsewhere, no acute abnormality. Normal appendix. Colonic diverticulosis without evidence of acute inflammation. Intraluminal gas within the bladder although this could be from catheterization since a Montelongo catheter is present. Please correlate clinically. Approved by: Iván Quarles M.D. on 09/12/2016 at 19:08 X-RAY CHEST ONE VIEW, PORTABLE IMPRESSION: Bilateral perihilar and medial basilar patchy opacities likely aspiration/ atelectasis although cannot exclude pneumonia. Please correlate clinically. Endotracheal tube with the tip projecting approximately 5 cm above the shelbi. Approved by: Iván Quarles M.D. on 09/12/2016 at 20:00 Assessment & Plan Patient George Pan is a 46-year-old man with past medical history remarkable for hypertension, chronic back pain and diabetes who presents to [facility] with altered mental status and reported seizure activity in route by EMS. acute, active Acute encephalopathy, POA, unclear etiologies yet: ddx: seizure, meningitis, CVA. Utox unremarkable. Initially suspected AMI given [facility], however, cardiac cath 09/13 showed non obstructive dz. LP 09/13 was unremarkable. CSF PCR ngtd. EEG also normal. -appreciate ICU team management, ID, cardiology input -started meropenem, acyclovir to cover meningitis/encephalitis -sedation, Vent bundle per protocol, -possible MRI with sedation bolus once pt is more stable -s/p keppra 1.5g, continue for now 500mg bid -NG for feeding -daily SBT if no CIx, today, pt is not ready. Troponemia, peaked at 0.423, trending down, likely ischemic in the setting of acute shock state, acute respiratory failure, -currently on asa, no BB/statin/ACEI, HHS, POA, in the setting of uncontrolled [id number], noncompliance, reported sx of overt hyperglycemia, a1c11.3, [id number] on admission, ketone neg in UA. Patient placed on the non-DKA protocol insulin drip, -glc in target, insulin bridged with long acting Humulin, continue for now leukocytosis with poly77, POA, probable infectious status, meningits as above, aspiration PNA or stress induced, recent steroid use. CXR showed retrocardiac and right basilar opacities -pt remained febrile, wbc worsened. -abx as above, trends fever curve, PCT, wbc, appreciate ID input. chronic, stable, resolved Shock state, POA, likely due to sedatives propofol, post-inbutation, possible septic, required vasopressor, resolved, target MAP>65, titrate Levophed, appreciate ICU team. blood gastric contents, developed 09/14-, likely due to stress induced ulcer, continue pepcid, h/h stable, no more episode observed YOVANY, likely due to prolonged down time, mild rhabdomyolysis, [id number], FENA at 0.4%, resolved with IVF, Acute severe lactic acidosis due to decreased tissue perfusion with arrest or possible indicator of seizure, rapidly resolved DVT prophylaxis: SCDs only given recent altered mental status with seizure activity makes anticoagulation contraindicated GI prophylaxis: pepcid q12h Patient is full code dispo:CCU appropriate, palliative care will see patient on Saturday, ordered spiritual support. GI Prophylaxis: Not indicated VTE Prophylaxis: SCDs VTE Mechanical Devices: Intermittant Pneumatic CD Resuscitation Status: CPR: Attempt Resuscitation Time spent 35min Teri Horta MD Sep 16, 2016 12:29
[2016-09-16] MEDS: Norepineph 8,000 mCg/250 mL NS 8,000 MCG in IV Premix 1 EACH IV SCH (14:00)
[2016-09-16] MEDS ORDERED: SODIUM CHLORIDE 0.9% IV SCH (15:05)
[2016-09-16] MEDS ORDERED: TOBRAMYCIN IV SCH (15:05)
[2016-09-16] MEDS ORDERED: Methylnaltrexone 12 mg/0.6 mL Inj SUBQ ONE (15:35)
--- NOTE | 2016-09-16 15:45 | NUR ---
Social Work: Multidisciplinary Rounds Pt discussed in am rounds. Pt is not medically stable for discharge at this time. Sw status remains unchanged with needs unknown. SURGEON/PRESIDENT to continue to follow to assess for needs. Rashmi Chase MSW
--- NOTE | 2016-09-16 16:19 | PROG NOTE ---
[address] [address] PROGRESS NOTE PATIENT: FROYLAN FRAGA : 1970 MR#: [id number] ADMIT: 09/12/2016 JOB ID: [id number] DATE: 09/16/2016 PROBLEMS: 1. Aspiration pneumonia. 2. Seizure disorder. 3. Uncontrolled hypertension. 4. Uncontrolled diabetes mellitus. 5. Altered mental status. SUBJECTIVE: None. OBJECTIVE: Temperature 37.5 with T-max being 39.2. Pulse 90. Respiratory rate 22 with ventilator set at 12. Blood pressure 122/68, O2 sat on FiO2 of 90%, PEEP of 10 is 93%. I and O shows 4.9 L in, 2.1 L out. Accumulative I and O is positive 12 L. General appearance: Sedated, though requiring heavy sedation with fentanyl and propofol to whichever set has been added. Eyes: Conjunctivae are pink. No scleral icterus. Pupils 1-2 mm. Nose moderate erythema. Some edema. Lessening secretions. Chest clear anterolaterally. RT reports suctioning goodly amounts of "gnarly" secretions. Look a bit light brownish in the canister. Did have some epistaxis earlier with the subcu heparin. With a tidal volume of 550, rate of 12, PEEP of 10, and FiO2 90%, peak inspiratory pressure is 35, plateau is 29, PEEP is set at 10, measured at 10. Heart: Regular rhythm. Heart tones normal. Abdomen is soft. A few bowel tones noted. Extremities: No pretibial edema. LABORATORY: Shows a white count of 17,300, which is rising, 84 polymorphonuclears, 8 lymphs, 5 monocytes. Hemoglobin stable at 12.3. Platelet count stable at 189,000. Sodium 140, potassium 3.8, chloride 107, CO2 is 21, BUN 10, creatinine 0.7, glucose 176, calcium is 8, phosphorus 2.9, magnesium 1.6, total bilirubin 0.4, AST 34, ALT 13, alkaline phos normal at 50. Albumin 2.6. Procalcitonin relatively stable at 0.18. Sputum showing moderate polys, growing a gram-negative mark with ID and sensitivity to follow. There is light growth of yeast consistent with commensal kathryn. Chest x-ray shows an increase in bilateral ill-defined pulmonary opacities in the lower lung [place]. Seem more prominent. Arterial blood gases on an FiO2 of 100%, PEEP of 8, rate is 16, tidal volume 550 shows pO2 of 82, pCO2 37, pH 7.38. ASSESSMENT: 1. Aspiration pneumonia. The patient currently receiving meropenem. Also receiving acyclovir for the unlikely possibility of H. simplex encephalitis. Growing a gram-negative mark in the face of meropenem. Concerns would be over resistant Pseudomonas, some the organisms such as Acinetobacter and Stenotrophomonas. For the moment while we are waiting ID and sensitivity, will add tobramycin to the meropenem. In addition, will add Micafungin as with his diabetes he is at a high risk of fungal infection. Sputum is pending. Will obtain blood cultures for both bacteria and fungus. I guess there is some concern about Aspergillus especially with its bowman color, but I think Micafungin will suffice while we are getting things in order here. 2. Altered mental status. Continues to require heavy sedation. Rather agitated last night. Not controlled with 200 mcg of fentanyl an hour and propofol at 50 mcg/kg/hour. Midazolam was added with good results. Has not had a bowel movement. [place] anti-constipation measures and add methylnaltrexone as he is receiving goodly doses of fentanyl. PLAN: 1. Increase PEEP to 10. Currently on an FiO2 of 90% and will continue same. Probably will do better with PEEP rather than FiO2 at this point. 2. Methylnaltrexone. 3. Tobramycin 700 mg a day. Pharmacy to assist with dosing and monitoring. 4. Serum fungitell. 5. Micafungin 150 mg a day. 6. Continue meropenem and acyclovir. 7. Blood cultures for Gram stain, C and S, as well as fungal culture. 8. A CT of the chest, abdomen, pelvis and sinuses in the morning. 9. Serum Fungitell along with the other morning labs to consist of CBC with diff, platelet count, CMP, magnesium, phosphorus, and procalcitonin. 10. ABGs in a.m. I discussed the current situation as well as our concerns in detail with the patient's aunt. I explained the problem with pneumonia especially in uncontrolled diabetes. Also concerned about the sketchy etiology of the seizure possibly related to encephalitis. Explained we were re-culturing him and adding antibiotics to his regimen. TIME SPENT: So far in critical care 90 minutes.
--- NOTE | 2016-09-16 17:01 | NUR ---
Fever/Ventilation/Feedings... remains febrile Tmax 38.2 this shift. Med with Tylenol and cooling measures in place. Has remained sedate on current sedation and analgesics. Has had no resp distress, but does have Spo2 drift into the 80's when turned and low 90's at rest. Vent changes made.. see flow sheet. Has thick creamy/bowman secreations per ETT. Nasal drainage has subsided. Tube feeds have been titrated to goal and pt is hodan well with residuals within parameters. Will begin a bowel regime as pt has not stooled since admit. Family has been here and updated on status.
[2016-09-16] MEDS: Micafungin Inj 150 MG in 0.9% Sodium Chloride 100 ML IV SCH (17:28)
[2016-09-16] MEDS: Senna-Docusate 8.6-50 mg Tablet PO PRN (17:45)
[2016-09-16] MEDS: fentaNYL 2,500 mCg/250 mL 2,500 MCG in IV Premix 1 EACH IV SCH (18:55)
[2016-09-16] MEDS: Polyethylene Glycol (PEG) 17 Gm Powder PO PRN (20:50)
[2016-09-17] VITALS (13 sets, daily range): BP systolic 108–143; BP diastolic 53–70; PULSE 83–114; RESP 16–21; O2SAT 90–100
[2016-09-17] MEDS: Chlorhexidine 0.12% 15 mL Oral Solution MT SCH ×6 (00:02→19:57)
[2016-09-17] MEDS: SODIUM CHLORIDE 0.9% IV SCH ×3 (00:02→18:24)
[2016-09-17] MEDS: ACYCLOVIR IV SCH ×3 (00:02→18:24)
[2016-09-17] MEDS: Propofol Inj 1,000,000 MCG in IV Premix 1 EACH IV SCH ×8 (00:03→22:47)
[2016-09-17] MEDS: Albuterol-Ipratropium 3 mL Inhalation Solution NEB SCH ×6 (00:16→19:47)
[2016-09-17] MEDS: Insulin Human REGular 300 Unit/3 mL Inj - Medium SUBQ SCH ×4 (03:00→20:03)
[2016-09-17] MEDS ORDERED: Glycopyrrolate 0.2 MG/ML 1mL Inj IVPUSH PRN ×2 (03:10→03:11)
[2016-09-17] MEDS ORDERED: Furosemide 10 mg/mL 2 mL Inj IVPUSH ONE (03:15)
[2016-09-17] MEDS: 0.9% Sodium Chloride 1,000 ML IV SCH ×3 (03:30→19:15)
[2016-09-17] MEDS: Midazolam 100 mg/100 mL Premix IV SCH (03:45)
[2016-09-17 03:55] LABS: BASOPHILS % (AUTO) 0.2 % (0-3); EOSINOPHILS % (AUTO) 1.7 % (0-5); MONOCYTES % (AUTO) 7.7 % (4-12); Mean Corpuscular Hemoglobin 30.6 pg (27.0-35.0); Mean Corpuscular Volume 89.1 fL (81-100); NEUTROPHILS % (AUTO) 83.6 % (40-74); Platelet Count 196 bil/L (150-400)
[2016-09-17 04:27] LABS: Magnesium 1.8 mg/dL (1.6-2.6); Phosphorus 2.2 mg/dL (2.5-4.9)
--- NOTE | 2016-09-17 05:01 | ABG ---
DateTimeAnalyzed 04:54:00 -_ pH ____7.439 - 7.350 7.450 pCO2 ___39.2__ -mmHg 35.0 45.0 pO2 ___64.0__ -mmHg 69.0 116 HCO3- ___26.1__ -mmol/L 22.0 26.0 ABE ____2.4__ -mmol/L -2.0 2.0 tHb ___12.7__ -g/dL O2Hb ___91.1__ -% COHb ____1.4__ -% MetHb ____0.8__ -% sO2 ___93.2__ -% 25.0 FIO2 __100.0__ -% PRVC 16 - PEEP ___10.0__ -cmH2O Set_RR ___16.0__ -b/min Vt __550.0__ -L Drawn By MM - Date/Time Notified____ 05:00:00 -_ Spontaneous_RR ___20.0__ -b/min Oxygen Device 1 VENTILATOR - Notified By MM - Notified Whom _AMIE, RN - B 761 -mmHg tO2 ___16.3__ -Vol% Luis test N/A -
--- NOTE | 2016-09-17 05:11 | NUR ---
Respiratory/Fever Around 0244 pt desats down to 79% after persistent cough, RR 35-37 breaths/min, HR upto 110 ST, pulmonary toilet per RT, took about 12 minutes to get 02sats back >92%, increased fi02 to 100%, versed gtt titrated up, Attending MD notified of respiratory status & seen pt at bedside, given lasix 20 mg slow IVP, uo from franks 1200 cc after 30 mins, given glycopyrolate 0.2mg IV for increased secretions, tubefeed held @ 0300 per MD, pcxr done stat. Abg @ 0450 with pH 7.43, pc02 39, p02 64, hc03 26. Tmax 39.4 C, given tylenol per ogt, applied ice packs.
[2016-09-17] MEDS: Meropenem Inj 2,000 MG in 0.9% Sodium Chloride 100 ML IV SCH (05:36)
[2016-09-17] MEDS: fentaNYL 2,500 mCg/250 mL 2,500 MCG in IV Premix 1 EACH IV SCH ×2 (07:27→19:36)
--- NOTE | 2016-09-17 07:58 | DRSVH ---
PROCEDURE: X-RAY CHEST ONE VIEW, PORTABLE ([id number]) INDICATIONS: increased oxygen requirements TECHNIQUE: One view of the chest was acquired. COMPARISON: [facility], CR, XR CHEST 1VW (PORTABLE), 09/16/2016, 6:48. FINDINGS: Surgical changes and devices: ET tube projects approximately 6.3 cm superior to the shelbi. NG tube p rojects across the GE junction. Central venous catheter projects to the mid SVC the right IJ approach . Lungs and pleura: No pleural effusions or pneumothorax. Diffuse lung opacification noted with pulmon allie edema. Opacities in the lung bases have decreased in size may represent resolving atelectasis or pneumonia. Mediastinum: Mediastinal contours appear normal. Heart size is normal. Bones and chest wall: No suspicious bony lesions. Overlying soft tissues appear unremarkable. IMPRESSION: 1. Bilateral pulmonary edema. Developing ARDS cannot be excluded. 2. Bibasilar opacities decreased in size consistent with resolving pneumonia, aspiration or atelectas is. Dictated by: Milena Bernal MD, PhD on 09/17/2016 at 7:54 Approved by: Milena Bernal MD, PhD on 09/17/2016 at 7:56
[2016-09-17] MEDS: Micafungin Inj 150 MG in 0.9% Sodium Chloride 100 ML IV SCH (08:13)
[2016-09-17] MEDS ORDERED: Sodium Phosphate Inj 40 MEQ in Dextrose 5% 500 ML IV ONE (08:20)
[2016-09-17] MEDS: Famotidine Inj 20 MG in IV Premix 1 EACH IV SCH ×2 (08:27→19:57)
[2016-09-17] MEDS ORDERED: Acetaminophen IV 1,000 MG in IV Premix 1 EACH IV PRN (10:50)
--- NOTE | 2016-09-17 11:17 | NUR ---
NUTRITION FOLLOW-UP: ASSESS: 46 YO male admitted to CCU with AMS, seizure activity, and pneumonia. Pt remains intubated and sedated. There is concern for aspiration and possible meningitis; possible lumbar puncture planned. Enteral feeding was at goal but per notes being held this morning. PMHX: HTN, type 2 diabetes, back pain, polysubstance abuse, smoking. LABS: Reviewed. Glu 227, Ca 8.4, Phos 2.2, Alb 2.9 MEDS: Reviewed. Insulin, Fentanyl, Senna, Miralax. Propofol rate currently 33.5 ml/hr providing 884 kcal/day. GI: No BM reported since admission x 5 D. SKIN: No issues noted. WT: 106.0 kg, BMI 32.6 kg/m2. Admit weight: 96 kg, BMI 29.5 kg/m2, IBW 78 kg DIET: NPO X 5 Days. NUTRITION SUPPORT: (ON HOLD) Glucerna 1.5 @ 50 ml/hr to provide 1650 kcal (2534 kcal w/propofol) and 91 g protein. Add 1 packet ProSource liquid protein five times per day to provide a total of 146 g protein; meeting 100% nutrient needs. ESTIMATED NEEDS: vent Calories: 7181-2697 kcal/day (20-25 kcal/kg BW) Protein: 145-170 g/day (1.5-1.8 g/kg BW) Fluids: ~2400 ml/day (25 ml/kg BW) NUTRITION DIAGNOSIS: 1) Inadequate oral intake related to decreased ability to consume sufficient energy as evidenced by current NPO/vent status - PERSISTS. 2) Altered nutrition related lab values related to endocrine dysfunction as evidence by A1C of 10.4 and elevated BG levels - PERSISTS. NUTRITION INTERVENTION: 1) Once able to restart enteral feeding recommend restarting TF of Glucerna 1.5 @ 50 ml/hr to provide 1650 kcal (2534 kcal w/propofol) and 91 g protein. In addition, recommend add 1 packet ProSource liquid protein five times per day to provide 146 g protein; meeting 100% nutrient needs. 2) Adjust goal rate based on daily propofol rate. MONITOR/EVALUATE: NPO/vent status, TF restart, GI, labs, wt, POC, nutrition status. Follow per high nutrition risk guidelines.
--- NOTE | 2016-09-17 13:46 | PCM.PNMED ---
Subjective Date of Service Sep 17, 2016 Subjective pt remained on the vent, no sig chg of MS, kept febrile on meropenem, acyclovir, added Micafungin, meropenem switched to Levaquin awaits panscan this AM Exam Vital Signs Vital Sign - Last Date Time Temp Pulse Resp B/P Pulse Ox O2 Delivery O2 Flow Rate FiO2 09/17/16 11:52 86 114/58 99 100 09/17/16 10:39 38.4 16 Mechanical Ventilator 09/12/16 17:31 15 Intake and Output 09/16/16 09/16/16 09/17/16 Cumulative From/Thru 15:00 23:00 07:00 09/12/16 17:31 - 09/17/16 05:38 Intake Total 2386 ml 2641 ml 04249 ml Output Total 750 ml 2650 ml 94594 ml Balance 1636 ml -9 ml 97831 ml Intake Oral 0 ml IV Total 1738 ml 1671 ml 26420 ml Tube Feeding 383 ml 795 ml 1400 ml Tube Irrigant 265 ml 175 ml 560 ml Output Urine Total 750 ml 2650 ml 53102 ml Gastric Drainage Total 1525 ml # Bowel Movements 0 0 0 Exam sedated, on vent. RASS-4, Pupills unequal, R>L, reactive to lights bilaterally. no JVD, MMM, no LAD RRR, nl s1, s2 no mrg coarse BS S,ND,NT,normoactive BS+ warm, no edema, pulses 2/2 IVs and Medications Medications Reviewed: Medications were reviewed in detail Lab and Diagnostics Result Diagram: 09/17/16 0340 09/17/16 0340 X-Rays, CTs and MRIs CT BRAIN WITHOUT CONTRAST IMPRESSION: No acute intracranial process. Right parietal scalp swelling/ hematoma. Approved by: Iván Quarles M.D. on 09/12/2016 at 18:29 PROCEDURE: CT CHEST, ABDOMEN AND PELVIS WITH CONTRAST IMPRESSION: Bilateral dependent consolidations suggesting aspiration but superimposed pneumonia cannot be excluded. Recommend clinical correlation. Elsewhere, no acute abnormality. Normal appendix. Colonic diverticulosis without evidence of acute inflammation. Intraluminal gas within the bladder although this could be from catheterization since a [place] catheter is present. Please correlate clinically. Approved by: Iván Qualres M.D. on 09/12/2016 at 19:08 X-RAY CHEST ONE VIEW, PORTABLE IMPRESSION: Bilateral perihilar and medial basilar patchy opacities likely aspiration/ atelectasis although cannot exclude pneumonia. Please correlate clinically. Endotracheal tube with the tip projecting approximately 5 cm above the shelbi. Approved by: Iván Quarles M.D. on 09/12/2016 at 20:00 Assessment & Plan Patient George Pan is a 46-year-old man with past medical history remarkable for hypertension, chronic back pain and diabetes who presents to [facility] with altered mental status and reported seizure activity in route by EMS. acute, active Acute encephalopathy, POA, unclear etiologies yet: ddx: seizure, meningitis, CVA. Utox unremarkable. Initially suspected AMI given [facility], however, cardiac cath 09/13 showed non obstructive dz. LP 09/13 was unremarkable. CSF PCR ngtd. EEG also normal. -MS remained unchanged, reported agitation, required heavy sedation. -appreciate ICU team management, ID, cardiology input -abx as below -sedation, Vent bundle per protocol, -possible MRI with sedation bolus once pt is more stable -s/p keppra 1.5g, continue for now 500mg bid -NG for feeding -daily SBT if no CIx, today, pt is not ready. leukocytosis with poly77, POA, probable infectious status, meningits as above, aspiration PNA or stress induced, recent steroid use. CXR showed retrocardiac and right basilar opacities. Tracheal aspirate cx showed Klebsiella, pansensitive. Patient was initially started meropenem, acyclovir to cover meningitis/encephalitis, -pt kept febrile, required Levophed -trends fever curve, PCT, wbc, appreciate ID input. -abx switched to Levaquin, contiue Acyclovir, added Micafungin, awaits fungitail -awaits panscan, sinus CT Shock state, POA, likely due to sedatives propofol, post-inbutation, possible septic, required vasopressor, target MAP>65, titrate Levophed, appreciate ICU team. chronic, stable, resolved Troponemia, peaked at 0.423, trending down, likely ischemic in the setting of acute shock state, acute respiratory failure, -currently on asa, no BB/statin/ACEI, HHS, POA, in the setting of uncontrolled [id number], noncompliance, reported sx of overt hyperglycemia, a1c11.3, lis591 on admission, ketone neg in UA. Patient placed on the non-DKA protocol insulin drip, -glc in target, insulin bridged with long acting Humulin, continue for now blood gastric contents, developed 09/14-, likely due to stress induced ulcer, continue pepcid, h/h stable, no more episode observed YOVANY, likely due to prolonged down time, mild rhabdomyolysis, [id number], FENA at 0.4%, resolved with IVF, Acute severe lactic acidosis due to decreased tissue perfusion with arrest or possible indicator of seizure, rapidly resolved DVT prophylaxis: SCDs only given recent altered mental status with seizure activity makes anticoagulation contraindicated GI prophylaxis: pepcid q12h Patient is full code dispo:CCU appropriate,appreciate palliative care GI Prophylaxis: Not indicated VTE Prophylaxis: SCDs VTE Mechanical Devices: Intermittant Pneumatic CD Resuscitation Status: CPR: Attempt Resuscitation Time spent 35min Teri Horta MD Sep 17, 2016 13:46
[2016-09-17] MEDS: Norepineph 8,000 mCg/250 mL NS 8,000 MCG in IV Premix 1 EACH IV SCH (14:00)
[2016-09-17] MEDS ORDERED: Lidocaine PF 2% 10 mL Inj ONE (14:15)
[2016-09-17] MEDS ORDERED: Lidocaine Topical 2% 30 mL Jelly ONE (14:16)
--- NOTE | 2016-09-17 14:28 | DRSVH ---
PROCEDURE: CT SINUSES ([id number]) INDICATIONS: refractory fever. Pneumonia. Copious sinus secreti TECHNIQUE: Noncontrast 3.0 mm axial images acquired from the frontal sinuses to the mid-sella, with coronal and sagittal reformats. COMPARISON: None. FINDINGS: Image quality: Excellent. Maxillary Sinuses: No bony remodeling or destruction. The coastal thickening bilaterally, left great er than right. Ethmoid Air Cells: No bony remodeling or destruction. Severe bilateral mucosal thickening. Sphenoid Sinuses: No bony remodeling or destruction. Opacified. Frontal Sinuses: No bony remodeling or destruction. Mild mucous thickening on the left. Ostiomeatal Complexes: Ostiomeatal complexes are patent. No Stefany cells. Miscellaneous: There is an endotracheal tube, which is partially visualized. Visualized intra-orbita l contents are normal. No aislinn bullosa or paradoxical turbinate curvature. There is leftward nasa l septum deviation. Fluid in mastoids bilaterally. IMPRESSION: 1. Bilateral paranasal sinus mucosal thickening consistent with sinusitis. 2. Fluid within mastoids. Clinical correlation for mastoiditis. 3. Leftward nasal septum deviation. Dictated by: Gera Monroy M.D. on 09/17/2016 at 14:22 Approved by: Gera Monroy M.D. on 09/17/2016 at 14:26
--- NOTE | 2016-09-17 15:15 | DRSVH ---
PROCEDURE: CT CHEST, ABDOMEN AND PELVIS [facility] CONTRAST ([id number]) INDICATIONS: refractory fever. Pneumonia. ?abscess. TECHNIQUE: After the administration of oral and intravenous contrast, 5 mm thick sections acquired from the lung apices to the symphysis. 5 mm coronal and sagittal reformats were performed, with additional 7 mm c oronal MIP reformats through the lungs. For radiation dose reduction, the following was used: autom ated exposure control, adjustment of mA and/or kV according to patient size. COMPARISON: [facility], CT, CT CHEST ABD PELVIS W CON, 09/12/2016, 17:34. FINDINGS: Image quality: Excellent. CHEST: Lungs and pleura: The patient is intubated. A "crazy paving" pattern is present throughout both lungs dominantly in the upper and mid lungs. This is a new finding when compared with prior CT dated . Dense consolidation remains within the dependent lung bases bilaterally similar in extent to the prior study. Air bronchograms are present, as before. There are small low density pleural effusions w hich are new when compared with the prior study. No rim-enhancing fluid collection to suggest empyema or pulmonary abscess. Mediastinum: Heart size is normal. No pericardial effusion. There is an 11 mm in diameter right par atracheal lymph node which is increased when compared with the study dated 09/12/16. There are enlarge d prevascular and subcarinal lymph nodes as well. Thoracic aorta and central pulmonary arteries are n ormal in size. Esophagus is normal in caliber. No hiatal hernia. Chest wall: No axillary or supraclavicular adenopathy by size criteria. Thyroid gland is unremarkab le. ABDOMEN: Solid organs: Liver and spleen are normal in size and enhancement. Gallbladder is likely surgically absent. Biliary system is non dilated. Pancreas enhances normally. No adrenal nodules. Kidneys d emonstrate normal size and enhancement, without hydronephrosis. Peritoneum and bowel: An NG tube is present with the tip in the gastric fundus. Bowel loops demonstr ate normal wall thickness and caliber. The appendix is thin walled and partially contrast-filled. The re are scattered sigmoid diverticula. No evidence for diverticulitis. No free fluid or air. Nodes and vessels: No retroperitoneal or mesenteric adenopathy by size criteria. Aorta and inferior vena cava are normal in size. Miscellaneous: No ventral hernias. Extensive fat stranding is present along the right abdominal wal l which is new when compared with the study dated 09/12/16. No subcutaneous abscess. PELVIS: Genitourinary: Bladder wall thickness is normal. Miscellaneous: No inguinal hernias or adenopathy. Bones: No suspicious bony lesions. No vertebral body compression fractures. IMPRESSION: 1. New crazy paving pattern within the upper and midlungs when compared with prior CT dated 09/12/16. Given the acute change, this most likely represents ARDS or acute interstitial pneumonia. 2. Persistent basilar consolidation with air bronchograms consistent with bilateral pneumonia. 3. New, small bilateral low density pleural effusions. No findings to suggest empyema or pulmonary ab scess. 4. New mediastinal adenopathy. Given the acute change, this likely represents infectious or reactive adenopathy. 5. New fat stranding along the right abdominal wall. The significance of this finding is unclear. Thi s may represent focal edema if the patient was dependent in this region. Alternatively, hematoma coul d have this appearance. Dictated by: Jessie Gates M.D. on 09/17/2016 at 14:53 Approved by: Jessie Gates M.D. on 09/17/2016 at 15:13
--- NOTE | 2016-09-17 19:18 | NUR ---
Resp Vent settings unchanged: 100%, 10, 16, 550. Desat to mid-80s with suctioning in CT today, took aprox 5min to recover. Bronchoscopy by Dr. Radford, see note. Thick brown secretions when suctioned. See imaging for CT results. Sedated with Fentanyl, versed, propofol, titrated down on versed as able. TF off overnight, restarted at 20cc/h late this afternoon; goal is 50cc/hr. T-max 38.4(ax) this shift, 975mg PO APAP administered per OGT; temp down to 38.1(ax). No change in petichiae rash to L side, Dr. Radford aware and stopped Meropenem with thought that may be medication related rash. Continuous lateral rotation therapy by bed, no evidence of pressure ulcer formation noted, skin in tact.
--- NOTE | 2016-09-17 22:00 | ENDO ---
[address] [address] ENDOSCOPY PROCEDURE PATIENT: FROYLAN FRAGA : 1970 MR#: [id number] ADMIT: 09/12/2016 JOB ID: [id number] DATE OF PROCEDURE: 09/17/2016 PROCEDURE: Flexible fiberoptic bronchoscopy. SURGEON: Sandeep Radford MD. ZINC SKIMMER: None. ANESTHESIA: Topical lidocaine (patient already receiving IV fentanyl, propofol and Versed for intubation and mechanical ventilation.) PREOPERATIVE DIAGNOSIS: Postop mucous plugging. POSTOPERATIVE DIAGNOSIS: Postop mucous plugging. INDICATIONS FOR PROCEDURE: A 46-year-old male who developed a seizure with concomitant aspiration pneumonia. Has Klebsiella oxytoca pneumonia. Last three days, he has had copious secretions both from the airway as well as nasal passages. Mucous has become increasingly thick and in fact is obstructing suction catheters. Bronchoscopy is being undertaken in order to evaluate the airways and remove any obstructing secretions. Telephone consent was obtained from the patient's . PROCEDURE: Upper airway was anesthetized with 4 cc of 1% lidocaine. The flexible fiberoptic bronchoscope was passed through the endotracheal tube. Respiratory therapy controlled the ventilator. Critical care nursing was available for monitoring, as well as medication delivery. Endobronchial team was there for bronchoscopy. Endotracheal tube in good position. Main shelbi was sharp and distinct. Mucosa was mildly to moderately erythematous. There was mucous plug obstructing the basilar segments of the right lower lobe. This was removed without difficulty. Appeared a bit white but once it was in the cup it was a raymundo-greenish very mucoid appearing entity. Lavage of the right lower lobe was accomplished. No endobronchial lesions were noted in the left lower lobe bronchus. Again, saline was instilled into the left lower lobe and no plugs were obtained. The patient tolerated procedure well. There was no evidence of desaturations or arrhythmias. At termination of procedure, the endotracheal tube tip was verified about 3-4 cm above main shelbi. SPECIMENS OBTAINED: Washings were sent for Gram stain, C and S, and fungal culture.
[2016-09-17] MEDS: Senna-Docusate 8.6-50 mg Tablet PO PRN (22:36)
[2016-09-17] MEDS: Polyethylene Glycol (PEG) 17 Gm Powder PO PRN (22:37)
[2016-09-18] VITALS (13 sets, daily range): BP systolic 101–127; BP diastolic 54–83; PULSE 83–92; RESP 16–18; O2SAT 94–100
[2016-09-18] MEDS: Albuterol-Ipratropium 3 mL Inhalation Solution NEB SCH ×6 (00:04→20:36)
[2016-09-18] MEDS: SODIUM CHLORIDE 0.9% IV SCH ×4 (00:08→23:45)
[2016-09-18] MEDS: Chlorhexidine 0.12% 15 mL Oral Solution MT SCH ×7 (00:08→23:45)
[2016-09-18] MEDS: ACYCLOVIR IV SCH ×4 (00:08→23:45)
[2016-09-18] MEDS: 0.9% Sodium Chloride 1,000 ML IV SCH ×3 (00:10→23:47)
[2016-09-18] MEDS: Propofol Inj 1,000,000 MCG in IV Premix 1 EACH IV SCH ×7 (01:38→21:41)
[2016-09-18] MEDS: Insulin Human REGular 300 Unit/3 mL Inj - Medium SUBQ SCH ×2 (02:10→08:49)
[2016-09-18 03:21] LABS: BASOPHILS % (AUTO) 0.1 % (0-3); EOSINOPHILS % (AUTO) 3.2 % (0-5); MONOCYTES % (AUTO) 7.5 % (4-12); Mean Corpuscular Hemoglobin 30.2 pg (27.0-35.0); Mean Corpuscular Volume 87.7 fL (81-100); NEUTROPHILS % (AUTO) 78.8 % (40-74); Platelet Count 216 bil/L (150-400)
[2016-09-18 04:19] LABS: Magnesium 1.8 mg/dL (1.6-2.6); Phosphorus 2.5 mg/dL (2.5-4.9)
[2016-09-18] MEDS: Midazolam 100 mg/100 mL Premix IV SCH (04:36)
--- NOTE | 2016-09-18 05:06 | NUR ---
P) Respiratory/fever/GI/Skin Pt. with expiratory rales/rhonchi in lung bases, coarse breath sounds with a moderate amount of thick, bowman, mucous suctioned from ET tube, able to decrease FIO2 to 90% and Pt. SPO2 still 98-99%. Febrile tonight, T-max 38.5c orally, per report this was expected after bronchoscopy so cultures were not redrawn. Pt. has not stooled since admission, but tolerating tube feeding well with residuals of 105ml or less. Skin is bright red on back and shoulders and inside of L upper arm, L upper arm also with a dime sized blister and there is an approx. 4" skin tear in the middle of his L back between scapula and his waist. Generalized non-pitting edema. VSS, cadiac rhythm sinus, generally in the 80's, urine is sufficient in quantity but fairly dark cynthia, with some sediment. I) Meds per 's orders, senna and miralax given through OG tube, blood sugars in the 170's, sub q insulin per protocol, cont. rotation and turning q2h, floating heels, full bed bath. E) Resting quietly between episodes of care. Addendum: 09/18/16 at 0523 by ULICES BENSON RN Multiple family members updated by phone and considerable education done with "". is "common law", pt. has a 19 year old son who would be legal POA but is on disability for severe anxiety disorder and per pt.'s and mother his son would not be able to make health care decisions. They would prefer his mother to make any necessary decisions, will inform 's and possibly request a social service consult for this dilemma.
--- NOTE | 2016-09-18 06:26 | ABG ---
DateTimeAnalyzed 06:19:00 -_ pH ____7.449 - 7.350 7.450 pCO2 ___42.5__ -mmHg 35.0 45.0 pO2 ___78.1__ -mmHg 69.0 116 HCO3- ___29.0__ -mmol/L 22.0 26.0 ABE ____4.9__ -mmol/L -2.0 2.0 tHb ___11.6__ -g/dL O2Hb ___94.1__ -% COHb ____1.0__ -% MetHb ____1.0__ -% sO2 ___96.0__ -% 25.0 FIO2 ___90.0__ -% PRVC 16 - PEEP ___10.0__ -cmH2O Set_RR ___16.0__ -b/min Vt __550.0__ -L Drawn By MM - Date/Time Notified____ 06:26:00 -_ Spontaneous_RR ___16.0__ -b/min Oxygen Device 1 VENTILATOR - Notified By MM - Notified Whom DR HASANDRAS - B 758 -mmHg tO2 ___15.4__ -Vol% Luis test N/A -
[2016-09-18] MEDS: fentaNYL 2,500 mCg/250 mL 2,500 MCG in IV Premix 1 EACH IV SCH ×2 (07:21→22:37)
[2016-09-18] MEDS: Senna-Docusate 8.6-50 mg Tablet PO PRN ×2 (07:41→19:34)
[2016-09-18] MEDS: Micafungin Inj 150 MG in 0.9% Sodium Chloride 100 ML IV SCH (07:41)
[2016-09-18] MEDS: Polyethylene Glycol (PEG) 17 Gm Powder PO PRN ×2 (07:42→19:34)
[2016-09-18] MEDS ORDERED: Furosemide 10 mg/mL 2 mL Inj IVPUSH ONE ×2 (08:00→16:20)
[2016-09-18] MEDS: Famotidine Inj 20 MG in IV Premix 1 EACH IV SCH ×2 (08:38→19:34)
[2016-09-18] MEDS: levoFLOXacin Inj 750 MG in IV Premix 1 EACH IV SCH (09:02)
--- NOTE | 2016-09-18 09:18 | PROG NOTE ---
[address] [address] PROGRESS NOTE PATIENT: FROYLAN FRAGA : 1970 MR#: [id number] ADMIT: 09/12/2016 JOB ID: [id number] DATE: 09/17/2016 REASON FOR FOLLOWUP: Complex patient presenting with altered mental status, seizures, and now prolonged intubation with ventilatory-dependent respiratory failure and agitation. INTERVAL HISTORY: Since I last saw the patient, now almost four days ago, he has remained critically ill in the ICU, requiring extremely high levels of ventilatory support. Efforts to minimally reduce his sedation result in agitation, and the nature of this agitation remains unclear, as does the cause of his ventilatory-dependent respiratory failure. Concerns include aspiration pneumonia, which would seem likely given that this started with a prolonged seizure, as well as the possibility of ARDS and some component of fluid overload. The patient is no longer requiring any pressors, which is a positive, but his respiratory status and mental status are problems of plenty. In the past couple days, the patient has developed what appears to be a drug rash associated with fevers. I recall that, during the early days of his admission, he did not have fevers, and these have now started, beginning on the , and progressing fairly consistently since that time. His early aspiration pneumonias, which were beta lactams, have been switched to levofloxacin to cover a Klebsiella isolated from his sputum culture. The patient has remained on acyclovir out of concern for possible herpes encephalitis, even though his initial PCR on spinal fluid was negative, as we were awaiting perhaps a second lumbar puncture to confirm that he does not have herpes encephalitis before stopping the acyclovir. This case was discussed in detail with the team, as well as with the ICU nurse this morning at the bedside. The patient is not arousable, cannot give any history, and there are no family members available. PHYSICAL EXAMINATION: Reveals a critically ill gentleman lying supine in the ICU. His temperature is 38.5, blood pressure 112/56 without vasopressors, pulse in the 90s, respiratory rate is ventilator dependent of course. He is saturating fairly well, but he is on 90% FiO2 and 10 of PEEP. He is not on any vasopressor agents, and his urine output is excellent. Patient's head is without any trauma. Eyes are anicteric, and without conjunctivitis. Oral endotracheal tube, oral gastric tube in good position. The right neck triple lumen line appears benign. Lungs with some rales at the bases. Cardiac tones regular rate and rhythm, without any murmur. Abdomen without focal mass or apparent tenderness. Penis and scrotum appear normal. A Montelongo catheter is present, draining clear yellow urine. Lower extremities are warm and well-perfused. There is minimal edema. He does have what appears to be a drug rash, which involves most of his torso, although primarily the posterior torso. The nurses report there is a small skin tear on the back, but we cannot turn the patient without fear of desaturation at this point. LABORATORIES: Include white count, which is normalized today at 9700. This represents really his first normal white count since admission. The diff is 78% segs. He does not have any eosinophilia, nor has he had any eosinophilia. His creatinine is 0.76. LFTs are normal. Procalcitonin is 0.44. There is really not much stratton from admission. It has ranged from basically 0.15-0.45 through his week here in the ICU. Urinalysis: 11-50 white cells. Fungitell is pending. Micro includes negative blood and sputum from admission. Cerebral spinal fluid PCR panel was negative on admission, as were CSF cultures. A sputum culture done a couple days into the hospital stay from the endotracheal tube had been nothing impressive on Gram stain, moderate polys, and no organisms, but eventually grew a light growth of Klebsiella oxytoca, which was quite susceptible. Other blood cultures done subsequently are negative. We do not have a recent sputum culture. Fungal blood cultures were done yesterday. IMAGING: Includes serial chest x-rays of course. Yesterday, a CT scan was done; however, and that CT scan showed crazy paving, possibly representing ARDS. Air bronchograms consistent with pneumonia were also noted. The chest x-rays were carefully reviewed on the view screen. They show bilateral lower lobe infiltrates, which appear to be perhaps a bit worse than yesterday, and would not be consistent with early ARDS. A sinus CT showed possible sinusitis, as well as mastoid fluid, consistent with possible mastoiditis. IMPRESSION: This has become an extraordinarily complicated case of a 46-year-old gentleman with uncontrolled diabetes, who developed headaches for a few days, and then was found down with frothy sputum and apparent aspiration. A long seizure followed, which was witnessed by healthcare personnel in transporting, and the patient required intubation. He initially had some shock, but this has resolved. His urine output remains good. On the negative side; however, the patient remains intubated on his seventh hospital day, requiring extremely high levels of FiO2, and his CT and chest x-rays suggest the development of acute respiratory distress syndrome. How much of a component of aspiration pneumonia is present remains unclear at this point. The finding of Klebsiella in the sputum, I suspect, is simple colonization. There is nothing on the Gram stain which suggests that this was a primary pathogen here. Other problems include his still altered mental status. Herpes encephalitis is very unlikely as there were only 2 white cells on his spinal fluid when he came in, and his initial PCR was negative, but this does not exclude the diagnosis, as occasionally, herpes simplex has negative PCR on admission, and can be relatively acellular in terms of the spinal fluid formula. A repeat lumbar puncture would be the best test to complete the workup for herpes encephalitis, and if a second PCR was found to be negative, we could stop the acyclovir. Antifungal drugs have been started out of concern that the patient may have disseminated fungal infection. This seems unlikely, but certainly not beyond the realm of possibility. The patient has a drug rash, which may have been due to the beta lactams he received earlier in his hospital stay, and I agree with switching off those drugs. The nature of his fever remains unclear. Possibilities here would include a nosocomial infection, such as a line infection, pancreatitis, fungemia, drug fever, or central fever. RECOMMENDATIONS: 1. Will check a lipase to exclude the unlikely possibility of pancreatitis. 2. The LFTs are normal, so I think we do not have to further workup anything in the right upper quadrant. 3. Flagyl could be added to the levofloxacin if there were significant concerns about aspiration pneumonia, but I think those concerns are declining. 4. I agree with the continuation of micafungin while we await fungal blood cultures and Fungitell. 5. I would continue the acyclovir until such time as we can get a repeat lumbar puncture to show that his cerebral spinal fluid is PCR negative once again for HSV. 6. Will continue to closely follow this extremely complex patient with you.
--- NOTE | 2016-09-18 09:55 | DRSVH ---
PROCEDURE: X-RAY CHEST ONE VIEW, PORTABLE ([id number]) INDICATIONS: acute respiratory failure TECHNIQUE: One view of the chest was acquired. COMPARISON: [facility], CR, XR CHEST 1VW (PORTABLE), 09/17/2016, 3:26. FINDINGS: Surgical changes and devices: Endotracheal and nasogastric tubes as well as the right internal jugula r catheter appear stable in position. Lungs and pleura: There are persistent small pleural effusions. No pneumothorax. There is persiste nt but slightly decreased pulmonary edema. Medial bibasilar airspace opacities are redemonstrated co nsistent with consolidation or aspiration versus atelectasis. Mediastinum: Mediastinal contours appear unchanged. Heart size is normal. Bones and chest wall: No suspicious bony lesions. Overlying soft tissues appear unremarkable. IMPRESSION: 1. Persistent but slightly decreased pulmonary edema with medial bibasilar consolidation, atelectasi s, or consolidation. 2. Small bilateral pleural effusions. Dictated by: Alexey Lechuga M.D. on 09/18/2016 at 9:51 Approved by: Alexey Lechuga M.D. on 09/18/2016 at 9:53
--- NOTE | 2016-09-18 10:09 | DRSVH ---
PROCEDURE: US VENOUS LEG DUPLEX BILATERAL INDICATIONS: R/O lower extremity DVT. Altered mental status, acidosis. TECHNIQUE: Real-time imaging, as well as color and pulse Doppler interrogation, were performed of the deep veins of both legs from the inguinal ligament to the popliteal fossa. COMPARISON: None. FINDINGS: The deep veins are normally compressible, and free of intraluminal thrombus. Color and pu lse Doppler demonstrate normal phasic intravascular flow. There is normal augmentation response to d istal compression maneuver. IMPRESSION: 1. No evidence of deep venous thrombosis in the right or left lower extremity. Dictated by: Alexey Lechuga M.D. on 09/18/2016 at 10:03 Approved by: Alexey Lechuga M.D. on 09/18/2016 at 10:06
--- NOTE | 2016-09-18 10:36 | PCM.PNMED ---
Subjective Date of Service Sep 18, 2016 Subjective Remains on ventilator, febrile overnight MAXIMUM TEMPERATURE 38.5 Exam Vital Signs Vital Sign - Last Date Time Temp Pulse Resp B/P Pulse Ox O2 Delivery O2 Flow Rate FiO2 09/18/16 07:30 85 102/58 97 90 09/18/16 07:30 16 Mechanical Ventilator 09/18/16 07:20 38.1 09/12/16 17:31 15 Intake and Output 09/17/16 09/17/16 09/18/16 Cumulative From/Thru 15:00 23:00 07:00 09/12/16 17:31 - 09/18/16 06:16 Intake Total 2483 ml 2108 ml 97020 ml Output Total 1125 ml 850 ml 17695 ml Balance 1358 ml 1258 ml 35265 ml Intake Oral 480 ml 480 ml IV Total 1898 ml 1650 ml 26199 ml Tube Feeding 5 ml 338 ml 1743 ml Tube Irrigant 100 ml 120 ml 780 ml Output Urine Total 1025 ml 850 ml 16013 ml Gastric Drainage Total 100 ml 1625 ml # Bowel Movements 0 0 Exam General: Laying in bed, no apparent distress. Intubated HEENT: Normocephalic, atraumatic, pupils pinpoint and midline, endotracheal tube orogastric tube in place, no JVD, no lymphadenopathy appreciated venous catheter to right internal jugular, dressed some redness at the base Cardiovascular: Regular rate and rhythm, no clicks murmurs rubs, peripheral pulses 2/4 equal bilaterally Pulmonary: Coarse breath sounds bilaterally, mild expiratory wheezing bilaterally Abdominal: Soft to palpation, bowel sounds present 4, no hepatosplenomegaly. Negative rebound. Extremities: No edema appreciated. No tenderness, asymmetry. Neuro: GCS 3i MSK: Muscle mass preserved. : Montelongo catheter in place, draining clear yellow fluid Dermatologic: Diffuse red macular rash, blanchable, over anterior thorax, left lateral thorax. IVs and Medications IV Fluids NS TKO Cumulative 16.2 L since admission 10 kg increase since admission 2.6 L last 24 hours up 4.6 L out in the last 24 hours Medications Reviewed: Medications were reviewed in detail Lab and Diagnostics Result Diagram: 09/18/1631409/18/16314 X-Rays, CTs and MRIs CT BRAIN WITHOUT CONTRAST IMPRESSION: No acute intracranial process. Right parietal scalp swelling/ hematoma. Approved by: Iván Quarles M.D. on 09/12/2016 at 18:29 PROCEDURE: CT CHEST, ABDOMEN AND PELVIS WITH CONTRAST IMPRESSION: Bilateral dependent consolidations suggesting aspiration but superimposed pneumonia cannot be excluded. Recommend clinical correlation. Elsewhere, no acute abnormality. Normal appendix. Colonic diverticulosis without evidence of acute inflammation. Intraluminal gas within the bladder although this could be from catheterization since a Montelongo catheter is present. Please correlate clinically. Approved by: Ivná Quarles M.D. on 09/12/2016 at 19:08 X-RAY CHEST ONE VIEW, PORTABLE IMPRESSION: Bilateral perihilar and medial basilar patchy opacities likely aspiration/ atelectasis although cannot exclude pneumonia. Please correlate clinically. Endotracheal tube with the tip projecting approximately 5 cm above the shelbi. Approved by: Iván Quarles M.D. on 09/12/2016 at 20:[address] 09/17/2016 IMPRESSION: 1. New crazy paving pattern within the upper and midlungs when compared with prior CT dated 09/12/16. Given the acute change, this most likely represents ARDS or acute interstitial pneumonia. 2. Persistent basilar consolidation with air bronchograms consistent with bilateral pneumonia. 3. New, small bilateral low density pleural effusions. No findings to suggest empyema or pulmonary abscess. 4. New mediastinal adenopathy. Given the acute change, this likely represents infectious or reactive adenopathy. 5. New fat stranding along the right abdominal wall. The significance of this finding is unclear. This may represent focal edema if the patient was dependent in this region. Alternatively, hematoma could have this appearance. Dictated by: Jessie Gates M.D. on 09/17/2016 at 14:[address] 09/17/2016 IMPRESSION: 1. Bilateral paranasal sinus mucosal thickening consistent with sinusitis. 2. Fluid within mastoids. Clinical correlation for mastoiditis. 3. Leftward nasal septum deviation. Dictated by: Gera Monroy M.D. on 09/17/2016 at 14:22 Venous duplex ultrasound 09/18/2016 IMPRESSION: 1. No evidence of deep venous thrombosis in the right or left lower extremity. Dictated by: Alexey Lechuga M.D. on 09/18/2016 at 10:03 Chest x-ray 09/18/2016 IMPRESSION: 1. Persistent but slightly decreased pulmonary edema with medial bibasilar consolidation, atelectasis, or consolidation. 2. Small bilateral pleural effusions. Dictated by: Alexey Lechuga M.D. on 09/18/2016 at 9:51 Assessment & Plan George Pan 46-year-old gentleman with history of hypertension type II diabetes mellitus, nonadherent to home medication altered mental status, witnessed 10 minute generalized seizure requiring administration of Versed and subsequent intubation. Hospital day 7 ICU day 7 Ventilator day 7 Antibiotics day 6 Acute encephalopathy, present on admission, active Etiology remains elusive, patient had blood glucose 657 on presentation, however unclear if this was primary cause of encephalopathy, or if reactive to underlying infection or other disease process. Lumbar puncture, EEG, brain, chest, sinus, abdomen, pelvis CTs remained otherwise unremarkable for definitive cause. -CTs reviewed independently in their entirety. A loading dose given and Keppra 500 mg twice a day Repeat LP at some point, when able to tolerate transfer to fluoroscopy suite. Brain MRI when able to tolerate, would need to be off sedation and paralytics. Continue on acyclovir per ID -we appreciate their expertise and recommendations. Acute fever, not present on admission, active Presented on day 3 of hospitalization, believed to be due to drug reaction Leukocytosis resolved, fever remains Bilateral lower extremity DVT ultrasound evaluation negative Repeat blood cultures drawn, No growth after 24 hours Increased oxygenation demands, not present on admission, active Chest CT showing groundglass appearance, possible indication for onset of ARDS, PF ratio 87. Chest x-ray showed persistent infiltrates possible consolidation - x-rays independently reviewed in their entirety. 550, 16, 90% FiO2, PEEP 10 Increase PEEP to 16, roughly 2 mmH2O every hour Acute drug reaction, not present on admission, impproved Red rash and fever suspected to be due to meropenem, has subsequently been changed to Levaquin for treatment of aspiration pneumonia Steroids and diphenhydramine have been administered Continue to monitor Acute aspiration pneumonia, present on admission, active Tracheal excretions positive for Klebsiella oxytoca and light fungal growth Continue on Levaquin, antibiotic day 7 Continue on micafungin, antifungal day 3 procalcitonin continues to trend up, 0.44 today Re-culture ET tube. Cardiomyopathy, chronicity unknown, present on admission Echocardiogram showed left ventricular function of 40% EF with apical hypokinesis Possibly stress-induced Troponins were trended and have normalized Cardiac catheterization showed no stenosis or occlusions to coronary arteries Patient is 16 L up since admission, keep fluids at TKO Lasix 40 mg later today, received 20 mg earlier this morning Chronic uncontrolled diabetes mellitus type II, present on admission, active A1c 11.3 on admission, fasting a.m. glucose remains above 200 Change medium dose correctional insulin high-dose correctional insulin Consider adding basal insulin. Long-term use propofol, not present on admission, Active Requiring 60 g per hour to achieve appropriate sedation Lipid panel every 72 hours to monitor lipids/triglycerides for AZUL. Leukocytosis, present on admission, resolved Has returned to normal levels. Based on complexity of case, continued back management, anticipate maintaining an ICU another 3-5 days. GI prophylaxis famotidine Pain management, sedation with propofol, fentanyl DVT prophylaxis subcutaneous heparin Remains full code Pain Evaluation: Adequate Pain Control GI Prophylaxis: H2 kelly VTE Prophylaxis: Sub-Q Heparin (Unfractionated), SCDs VTE Mechanical Devices: Intermittant Pneumatic CD Resuscitation Status: CPR: Attempt Resuscitation Attending Statement I have seen and examined this patient with the resident physician. Vital signs , labs, imaging have been reviewed. I agree with the assessment and plan above. Please refer to my separately dictated progress note for any modifications to above. Marianela Hassan M.D. Pulmonary and Critical Care medicine Pager [phone] [place] DO Sep 18, 2016 10:36 Marianela Hassan MD Sep 19, 2016 07:25
--- NOTE | 2016-09-18 10:53 | PROG NOTE ---
[address] [address] PROGRESS NOTE PATIENT: FROYLAN FRAGA : 1970 MR#: [id number] ADMIT: 09/12/2016 JOB ID: [id number] DATE: 09/18/2016 PULMONARY CRITICAL CARE PROGRESS NOTE: SUBJECTIVE: The patient is a 46-year-old man presenting to the hospital with altered mental status and seizure on September 12, 2016, complicated by respiratory failure, encephalopathy, and sepsis. The patient was seen and evaluated with resident physician, Dr. Crow Berry. Please refer to his separate detailed note for additional information. INTERVAL HISTORY: No change in mentation. Continues to have fever, highest 38.5 today. REVIEW OF SYSTEMS: Unable to obtain since patient is intubated. PHYSICAL EXAMINATION: Vital signs reviewed. Notable for T-max 38.5. FiO2 is 90% with PEEP of 10 cm. General: Intubated, sedated, and unresponsive to me. Chest clear to auscultation anteriorly. Heart regular rate, rhythm, no edema. LABORATORIES: Reviewed. WBC is down to 9.7 from 13.1. Chemistry is normal. Procalcitonin is rising 0.44 from 0.39 yesterday. Cultures reviewed. Blood cultures recently no growth. Sputum from September 15 growing Klebsiella. IMAGING: Chest x-ray today shows bibasilar atelectasis/infiltrates, increased pulmonary vascular congestion more so in the left upper lung zone. Arterial blood gas: pH 7.44, pCO2 of 42, pO2 of 78, and bicarb of 29. ASSESSMENT AND RECOMMENDATIONS: 1. Acute hypoxic respiratory failure intubated September 12. 2. Septic shock-improved. 3. Persistent fevers. 4. Acute encephalopathy. 5. Cardiomyopathy ejection fraction 35%. This 46-year-old man found altered by the medics, agitated and combative, had a seizure witnessed and subsequently intubated for obtundation. He has had fevers persistently since admission. LP was relatively benign except for two white blood cells, PCRs were all negative. At this point, he is on levofloxacin, acyclovir for possibility of herpes encephalitis, as well as empirically added micafungin that was just started yesterday. He was previously on meropenem until yesterday and this was switched to levofloxacin for the possibility of a drug rash/drug fever. With regards to respiratory status he is on FiO2 of 90% and only a PEEP of 10. I reviewed his CT scan and this shows pulmonary edema, bilateral atelectasis pattern, but it is not particularly impressive for acute respiratory distress syndrome. This could improve with diuresis. I am going to start trying that first. He got a dose of Lasix this morning which we will repeat if needed. I would also like to increase the PEEP by 2 cm up to 16 at least to see if this helps his oxygenation. He is on a significant amount of sedation midazolam at 3 mg, fentanyl at 200, and propofol as 60. I would like to lighten the benzodiazepines and narcotics first and wean them off as much as tolerated and then try lightening the propofol to assess his mental status better. He has been getting Keppra for seizures 500 mg twice daily. This is not a very high dose so I do not think it is contributing to his mentation, but it would be something to consider if he does not wake up with lightening the other drugs. His procalcitonin continues to rise, and I do not have a good explanation for this. Will repeat a sputum culture. A few days ago this grew Klebsiella. It should be covered by his current antibiotics. I spoke with Dr. Montalvo about repeating an LP to rule out herpes encephalitis. Apparently the yield on initial PCR is about 95% and a second [employer] repeat PCR increases the yield to 100%. We will reconsider this tomorrow if nothing else is clear by the end of the day today. He is on appropriate GI prophylaxis. He is not on DVT prophylaxis. I do not see a contraindication so we will go ahead and start subcu heparin. He is a FULL CODE. CRITICAL CARE TIME: Sixty (60) minutes.
[2016-09-18] MEDS: Norepineph 8,000 mCg/250 mL NS 8,000 MCG in IV Premix 1 EACH IV SCH (12:48)
[2016-09-18] MEDS: Heparin 5,000 Unit/mL Inj SUBQ SCH ×3 (12:48→23:46)
--- NOTE | 2016-09-18 14:15 | PCM.PNMED ---
Subjective Date of Service Sep 18, 2016 Subjective pt remained on the vent, kept febrile since yesterday. still require high FiO2 Exam Vital Signs Vital Sign - Last Date Time Temp Pulse Resp B/P Pulse Ox O2 Delivery O2 Flow Rate FiO2 09/18/16 11:40 87 113/60 99 80 09/18/16 11:40 16 Mechanical Ventilator 09/18/16 11:33 38.2 09/12/16 17:31 15 Intake and Output 09/17/16 09/17/16 09/18/16 Cumulative From/Thru 15:00 23:00 07:00 09/12/16 17:31 - 09/18/16 06:16 Intake Total 2483 ml 2108 ml 10613 ml Output Total 1125 ml 850 ml 47504 ml Balance 1358 ml 1258 ml 14818 ml Intake Oral 480 ml 480 ml IV Total 1898 ml 1650 ml 49989 ml Tube Feeding 5 ml 338 ml 1743 ml Tube Irrigant 100 ml 120 ml 780 ml Output Urine Total 1025 ml 850 ml 36763 ml Gastric Drainage Total 100 ml 1625 ml # Bowel Movements 0 0 Exam sedated, on vent. RASS-4, no JVD, MMM, no LAD RRR, nl s1, s2 no mrg coarse BS S,ND,NT,normoactive BS+ warm, no edema, pulses 2/2 IVs and Medications Medications Reviewed: Medications were reviewed in detail Lab and Diagnostics Result Diagram: 09/18/16 0315 09/18/16 0315 X-Rays, CTs and MRIs CT BRAIN WITHOUT CONTRAST IMPRESSION: No acute intracranial process. Right parietal scalp swelling/ hematoma. Approved by: Iván Quarles M.D. on 09/12/2016 at 18:29 PROCEDURE: CT CHEST, ABDOMEN AND PELVIS WITH CONTRAST IMPRESSION: Bilateral dependent consolidations suggesting aspiration but superimposed pneumonia cannot be excluded. Recommend clinical correlation. Elsewhere, no acute abnormality. Normal appendix. Colonic diverticulosis without evidence of acute inflammation. Intraluminal gas within the bladder although this could be from catheterization since a [place] catheter is present. Please correlate clinically. Approved by: Iván Quarles M.D. on 09/12/2016 at 19:08 X-RAY CHEST ONE VIEW, PORTABLE IMPRESSION: Bilateral perihilar and medial basilar patchy opacities likely aspiration/ atelectasis although cannot exclude pneumonia. Please correlate clinically. Endotracheal tube with the tip projecting approximately 5 cm above the shelbi. Approved by: Iván Quarles M.D. on 09/12/2016 at 20:[address] 09/17/2016 IMPRESSION: 1. New crazy paving pattern within the upper and midlungs when compared with prior CT dated 09/12/16. Given the acute change, this most likely represents ARDS or acute interstitial pneumonia. 2. Persistent basilar consolidation with air bronchograms consistent with bilateral pneumonia. 3. New, small bilateral low density pleural effusions. No findings to suggest empyema or pulmonary abscess. 4. New mediastinal adenopathy. Given the acute change, this likely represents infectious or reactive adenopathy. 5. New fat stranding along the right abdominal wall. The significance of this finding is unclear. This may represent focal edema if the patient was dependent in this region. Alternatively, hematoma could have this appearance. Dictated by: Jessie Gates M.D. on 09/17/2016 at 14:[address] 09/17/2016 IMPRESSION: 1. Bilateral paranasal sinus mucosal thickening consistent with sinusitis. 2. Fluid within mastoids. Clinical correlation for mastoiditis. 3. Leftward nasal septum deviation. Dictated by: Gera Monroy M.D. on 09/17/2016 at 14:22 Venous duplex ultrasound 09/18/2016 IMPRESSION: 1. No evidence of deep venous thrombosis in the right or left lower extremity. Dictated by: Alexey Lechuga M.D. on 09/18/2016 at 10:03 Chest x-ray 09/18/2016 IMPRESSION: 1. Persistent but slightly decreased pulmonary edema with medial bibasilar consolidation, atelectasis, or consolidation. 2. Small bilateral pleural effusions. Dictated by: Alexey Lechuga M.D. on 09/18/2016 at 9:51 Assessment & Plan Patient George Pan is a 46-year-old man with past medical history remarkable for hypertension, chronic back pain and diabetes who presents to [facility] with altered mental status and reported seizure activity in route by EMS. 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 Utox unremarkable. Initially suspected AMI given [facility], however, cardiac cath 09/13 showed non obstructive dz. LP 09/13 was unremarkable. CSF PCR ngtd. EEG also normal. -MS remained unchanged, reported agitation, required heavy sedation. -appreciate ICU team management, ID, cardiology input -abx as below -sedation, Vent bundle per protocol, -possible MRI with sedation bolus once pt is more stable -s/p keppra 1.5g, continue for now 500mg bid -daily SBT if no CIx recurrent fever, leukocytosis, POA, probable infectious status, meningits, aspiration PNA. CXR showed retrocardiac and right basilar opacities. Tracheal aspirate cx showed Klebsiella, pansensitive. Patient was initially started meropenem, acyclovir to cover meningitis/encephalitis, abx switched to Levaquin due to allergic reaction. panscan09/17 showed developing pneumonia. -pt kept febrile despite broad spectrum abx, antiviral, antifungal -trends fever curve, PCT, wbc, appreciate ID input. -continue Levaquin, Acyclovir, added Micafungin, awaits fungitail Shock state, POA, likely due to sedatives propofol, post-inbutation, possible septic, required vasopressor, target MAP>65, titrate Levophed, appreciate ICU team. respiratory failure, severe hypoxemia, POA, remained on vent, vent manage per ICU team. chronic, stable, resolved #Troponemia, peaked at 0.423, trending down, likely ischemic in the setting of acute shock state, acute respiratory failure, currently on asa, no BB/statin/ ACEI, #HHS, POA, in the setting of uncontrolled [id number], noncompliance, reported sx of overt hyperglycemia, a1c11.3, [id number] on admission, ketone neg in UA. Patient placed on the non-DKA protocol insulin drip, glc in target, insulin bridged with long acting Humulin, continue for now #blood gastric contents, developed 09/14-, likely due to stress induced ulcer, continue pepcid, h/h stable, no more episode observed #YOVANY, likely due to prolonged down time, mild rhabdomyolysis, [id number], FENA at 0.4%, resolved with IVF, #Acute severe lactic acidosis due to decreased tissue perfusion with arrest or possible indicator of seizure, rapidly resolved DVT prophylaxis: SCDs only given recent altered mental status with seizure activity makes anticoagulation contraindicated GI prophylaxis: pepcid q12h Patient is full code dispo:CCU appropriate, GI Prophylaxis: H2 kelly VTE Prophylaxis: Sub-Q Heparin (Unfractionated), SCDs VTE Mechanical Devices: Intermittant Pneumatic CD Resuscitation Status: CPR: Attempt Resuscitation Time spent 35min Teri Horta MD Sep 18, 2016 14:14
[2016-09-18] MEDS ORDERED: Lactulose 20 Gm/30 mL 30 mL Syrup TUBE ONE (16:20)
[2016-09-18] MEDS: Insulin Human REGular 300 Unit/3 mL Inj SUBQ SCH ×2 (17:03→19:40)
--- NOTE | 2016-09-18 18:23 | PCM.PALLBR ---
Palliative Brief Note Date of Service Sep 18, 2016 . chart reviewed, no family available yest or today. Attempt to contact SO- Adriana - no answer. Will defer consult. Leticia Chand MD Sep 18, 2016 18:23
--- NOTE | 2016-09-18 18:32 | NUR ---
Oxygenation/sedation/bowels/diuresis/fevers Pt is oxygenating 95% on current vent settings of 90%fio2, peep 10, RR 16, TV 550. Plan to increase peep as directed by Dr Hassan. Pt is on a lot of sedation with propofol at 60mcg/kg/min, fentanyl 200mcg/hr and versed 3mg/hr plan to wean as tolerated as directed by Dr Hassan. 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 Dos, senna, and miralax given. Pt is given Lasix today and is diuresing well see I/O flowsheet. Pt continues to be febrile. Common law updated on plan of care and pt condition. She is thankful for a thorough review. Able to wean pt off versed today and down to 150mcg fentanyl/hr
[2016-09-19] VITALS (12 sets, daily range): BP systolic 107–179; BP diastolic 50–92; PULSE 85–112; RESP 16–20; O2SAT 97–100
[2016-09-19] MEDS: Albuterol-Ipratropium 3 mL Inhalation Solution NEB SCH ×6 (00:13→21:05)
[2016-09-19] MEDS: Propofol Inj 1,000,000 MCG in IV Premix 1 EACH IV SCH ×7 (00:40→20:54)
--- NOTE | 2016-09-19 01:46 | NUR ---
P) Respiratory/GI/ Social Pt. appears more comfortable tonight, increase in oral secretions, had a smear of stool at change of shift. Bronchial mucous is more creamy and less bowman colored, lungs continue coarse with fine crackles, productive cough. Pt. continues febrile and intermittently diaphoretic, T-max 38.4. Mother and sister updated on plan of care. I) Miralax and senna given with liquid protein, meds per Dr.'s orders and cont. close monitoring, turning q2h and floating heels, bed in cont. rotation mode. E) Medium, loose dark brown stool, sample sent for heme testing.
[2016-09-19 03:20] LABS: BASOPHILS % (AUTO) 0.1 % (0-3); EOSINOPHILS % (AUTO) 4.2 % (0-5); MONOCYTES % (AUTO) 8.8 % (4-12); Mean Corpuscular Hemoglobin 29.9 pg (27.0-35.0); Mean Corpuscular Volume 89.2 fL (81-100); NEUTROPHILS % (AUTO) 77.9 % (40-74); Platelet Count 272 bil/L (150-400)
[2016-09-19] MEDS: Insulin Human REGular 300 Unit/3 mL Inj SUBQ SCH ×4 (03:23→20:14)
[2016-09-19 04:12] LABS: Alprazolam Negative (.)
[2016-09-19] MEDS: Chlorhexidine 0.12% 15 mL Oral Solution MT SCH ×5 (04:12→20:12)
--- NOTE | 2016-09-19 04:49 | ABG ---
DateTimeAnalyzed 04:43:00 -_ pH ____7.477 - 7.350 7.450 pCO2 ___42.1__ -mmHg 35.0 45.0 pO2 ___82.2__ -mmHg 69.0 116 HCO3- ___30.7__ -mmol/L 22.0 26.0 ABE ____6.8__ -mmol/L -2.0 2.0 tHb ___11.8__ -g/dL O2Hb ___94.4__ -% COHb ____1.2__ -% MetHb ____0.6__ -% sO2 ___96.1__ -% 25.0 FIO2 ___60.0__ -% PRVC 16 - PEEP ___14.0__ -cmH2O Set_RR ___16.0__ -b/min Vt __550.0__ -L Drawn By MM - Date/Time Notified____ 04:49:00 -_ Spontaneous_RR ___16.0__ -b/min Oxygen Device 1 VENTILATOR - Notified By MM - Notified Whom DR HASANDRAS - B 760 -mmHg tO2 ___15.8__ -Vol% Luis test N/A -
[2016-09-19] MEDS: Polyethylene Glycol (PEG) 17 Gm Powder PO SCH ×2 (08:30→20:12)
[2016-09-19] MEDS: Senna-Docusate 8.6-50 mg Tablet PO SCH ×2 (08:30→20:12)
[2016-09-19] MEDS: levoFLOXacin Inj 750 MG in IV Premix 1 EACH IV SCH (08:31)
[2016-09-19] MEDS: Famotidine Inj 20 MG in IV Premix 1 EACH IV SCH (08:42)
[2016-09-19] MEDS: Micafungin Inj 150 MG in 0.9% Sodium Chloride 100 ML IV SCH (08:45)
[2016-09-19] MEDS: SODIUM CHLORIDE 0.9% IV SCH ×2 (08:46→17:12)
[2016-09-19] MEDS: ACYCLOVIR IV SCH ×2 (08:46→17:12)
[2016-09-19] MEDS: Heparin 5,000 Unit/mL Inj SUBQ SCH ×2 (09:18→17:05)
--- NOTE | 2016-09-19 09:59 | PROG NOTE ---
[address] [address] PROGRESS NOTE PATIENT: FROYLAN FRAGA : 1970 MR#: [id number] ADMIT: 09/12/2016 JOB ID: [id number] DATE: 09/19/2016 REASON FOR FOLLOW UP: Altered mental status with ventilator dependent respiratory failure and uncontrolled diabetes. INTERVAL HISTORY: Overnight, the patient has remained intubated and sedated though he is somewhat improved with respect to his respiratory status as well as his level of agitation. He remains however fairly heavily sedated with propofol and other agents and no additional history is available from the patient. This case was discussed at the bedside with the ICU nurse as well as during ICU morning rounds with the entire team. PHYSICAL EXAMINATION: Reveals an afebrile gentleman, temp 37.4, pulse 87, blood pressure 131/61. He is on 60% FiO2 which is a major improvement over the past few days when he was up to a basically 90% to 100% fairly consistently. The patient is still not awake and does not follow any commands or open his eyes, though he remains quite sedated as was mentioned. He has no conjunctival abnormalities. His oral endotracheal tube and orogastric tube are in good position. Lungs with crackles bilaterally, perhaps less than yesterday specially on the right, which seems much more clear. Cardiac tones regular rate and rhythm. No murmurs appreciated. The abdomen is slightly distended without focal mass. He has a progressive classic macular erythematous rash, which extends up from the upper chest around the flanks and with some spread towards the extremities. There is no bullae. Skin sloughing or mucous membrane involvement with this rash. His extremities are well perfused. He is now having bowel movements. LABORATORIES: Include a white count of 8700, which has completely normalized. The diff is also near normal at this point. Haptoglobin 323, creatinine 0.81. LFTs are normal. Procalcitonin 0.46. Urinalysis from admission had no white cells. Fungitell is pending. Initial blood cultures as well as followup blood cultures remain completely negative. Sputum on the 15 obtained from the trachea had scant growth of Klebsiella which was sensitive to her current antibiotics. Fungal blood cultures are pending. Today's chest x-ray was reviewed and it shows clearing of the bilateral right greater than left infiltrate seen previously. It is not normal, but it is improved and this is my reading which I did review with the pulmonary attending who concurs. IMPRESSION: This remains an extremely complex case of a 46-year-old gentleman with basically untreated diabetes who had some headaches and was found down with frothy sputum and apparent aspiration event. This was followed by a prolonged seizure while he was being transported. The patient is now entering his eighth hospital day and is still ventilator dependent requiring high levels of FiO2, but that is improved somewhat. His chest x-ray and CT scan showed crazy paving which could be consistent with fluid overload, CHF, or ARDS. This seems to be improving both with current chest x-ray as well as his ventilator setting which has now been decreased considerably. I see no evidence that the Klebsiella found in the sputum is of significant pathogen here. The patient's altered mental status is still a concern. Herpes simplex is unlikely, but to complete exclude it and stop his acyclovir we should do a repeat lumbar puncture with repeat cell counts, and multiplex PCR. Antifungal therapy was started because of concern about disseminated fungal and super infection which I think is unlikely, but remotely possible. The patient has a fairly severe and worsening drug rash. We believe this is due to meropenem, which was stopped, and he is now on the beta-lactam and carbapenem free regimen. RECOMMENDATIONS: 1. Will continue with our current antibiotics, which include levofloxacin, micafungin, and acyclovir. 2. If possible we will get a repeat lumbar puncture with cell count, glucose, protein, and a multiplex PCR and if the HSV PCR is negative again we can stop the acyclovir. 3. Will continue to closely follow this patient with you. My overall sense is that his fever is due to a drug reaction as his drug rash seems to be worsening, and he does not appear toxic nor does he have any positive cultures to indicate a bacterial or fungal process causing his fevers, but he obviously needs continued very close observation.
--- NOTE | 2016-09-19 10:20 | NUR ---
NUTRITION FOLLOW-UP: ASSESS: 46 YO male admitted to CCU with AMS, seizure activity, and pneumonia. Pt remains intubated and sedated. TF is currently running at goal. FMS was placed overnight. PMHX: HTN, type 2 diabetes, back pain, polysubstance abuse, smoking. LABS: Reviewed. Glu 255, Ca 8.3, Alb 2.2 MEDS: Reviewed. Insulin, Fentanyl, Senna, Miralax. Propofol rate currently 27.9 ml/hr providing 736 kcal/day. GI: FMS in place SKIN: No issues noted. WT: 101.1kg, BMI 31.1 kg/m2. Admit weight: 96 kg, BMI 29.5 kg/m2, IBW 78 kg, adj bw 83.9kg DIET: NPO NUTRITION SUPPORT: Glucerna 1.5 @ 50 ml/hr to provide 1650 kcal (2386kcal w/propofol) and 91 g protein. Add 1 packet [employer] liquid protein five times per day to provide a total of 146 g protein; meeting 100% nutrient needs. ESTIMATED NEEDS: vent Calories: 8080-3461 kcal/day (20-25 kcal/kg BW) Protein: 125-150 g/day (1.5-1.8 g/kg adjBW) Fluids: ~2400 ml/day (25 ml/kg BW) NUTRITION DIAGNOSIS: 1) Inadequate oral intake related to decreased ability to consume sufficient energy as evidenced by current NPO/vent status - PERSISTS. 2) Altered nutrition related lab values related to endocrine dysfunction as evidence by A1C of 10.4 and elevated BG levels - PERSISTS. NUTRITION INTERVENTION: 1) Recommend continue TF of Glucerna 1.5 @ 50 ml/hr to provide 1650 kcal (2386 kcal w/propofol) and 91 g protein. 2) Will add 1 packet [employer] liquid protein four times per day to provide 135 g protein; meeting 100% nutrient needs. 3) Adjust goal rate based on daily propofol rate. MONITOR/EVALUATE: NPO/vent status, TF hodan, GI, labs, wt, POC, nutrition status. Follow per high nutrition risk guidelines.
--- NOTE | 2016-09-19 11:09 | DRSVH ---
PROCEDURE: X-RAY CHEST ONE VIEW, PORTABLE ([id number]) INDICATIONS: acute respiratory failure TECHNIQUE: One view of the chest was acquired. COMPARISON: [facility], CR, XR CHEST 1VW (PORTABLE), 09/18/2016, 6:19. FINDINGS: Surgical changes and devices: ET tube with tip 7 CM above the shelbi. Enteric tube with tip below the diaphragm. Right-sided CVC with tip in the upper SVC. Lungs and pleura: Shallow inspiration causing bibasilar atelectasis left greater than right. Trace p leural effusions. Mediastinum: Mediastinal contours appear normal. Heart size is normal. Bones and chest wall: No suspicious bony lesions. Overlying soft tissues appear unremarkable. IMPRESSION: Mildly improved bibasilar pulmonary opacities left greater than right with trace pleural effusions. Dictated by: Henrry Dunbar M.D. on 09/19/2016 at 9:56 Approved by: Henrry Dunbar M.D. on 09/19/2016 at 9:57
[2016-09-19 11:29] LABS: INR 0.96 ratio
--- NOTE | 2016-09-19 11:41 | PCM.PNMED ---
Subjective Date of Service Sep 19, 2016 Subjective Patient remains intubated, sedated. Tolerating sedation wean appropriately. Had numerous night sweats, fever broke and temperature remained less than 38C. Bowel movement, FMS placed Hemoccult negative. Exam Vital Signs Vital Sign - Last Date Time Temp Pulse Resp B/P Pulse Ox O2 Delivery O2 Flow Rate FiO2 09/19/16 08:00 Ventilator 09/19/16 08:00 37.9 104 16 138/72 98 60 Intake and Output 09/18/16 09/18/16 09/19/16 Cumulative From/Thru 15:00 23:00 07:00 09/12/16 17:31 - 09/19/16 06:25 Intake Total 2302 ml 2394 ml 64472 ml Output Total 2300 ml 1725 ml 40937 ml Balance 2 ml 669 ml 85331 ml Intake Oral 480 ml IV Total 1727 ml 1547 ml 58833 ml Tube Feeding 455 ml 647 ml 2845 ml Tube Irrigant 120 ml 200 ml 1100 ml Output Urine Total 2300 ml 1725 ml 31687 ml Gastric Drainage Total 1625 ml # Bowel Movements 0 Exam General: Laying in bed, uncovered, HEENT: Normocephalic, atraumatic, and point pupils, pupils midline, endotracheal tube in place, orogastric tube in place, central line to right IJ in place and dressed, Cardiovascular: Tachycardic, no clicks murmurs rubs, peripheral pulses 2/4 equal bilaterally Pulmonary: Diffuse Rhonchi. Abdominal: Soft to palpation, bowel sounds present 4, no hepatosplenomegaly. Negative rebound. Extremities: No edema appreciated. No tenderness, asymmetry. Neuro: GCS 3i MSK: Muscle mass intact. Derm: generalized erythematous petechial rash now diffuse IVs and Medications Medications Reviewed: Medications were reviewed in detail Lab and Diagnostics Result Diagram: 09/19/16 0300 09/19/16 0300 X-Rays, CTs and MRIs CT BRAIN WITHOUT CONTRAST IMPRESSION: No acute intracranial process. Right parietal scalp swelling/ hematoma. Approved by: Iván Quarles M.D. on 09/12/2016 at 18:29 PROCEDURE: CT CHEST, ABDOMEN AND PELVIS WITH CONTRAST IMPRESSION: Bilateral dependent consolidations suggesting aspiration but superimposed pneumonia cannot be excluded. Recommend clinical correlation. Elsewhere, no acute abnormality. Normal appendix. Colonic diverticulosis without evidence of acute inflammation. Intraluminal gas within the bladder although this could be from catheterization since a Montelongo catheter is present. Please correlate clinically. Approved by: Iván Quarles M.D. on 09/12/2016 at 19:08 X-RAY CHEST ONE VIEW, PORTABLE IMPRESSION: Bilateral perihilar and medial basilar patchy opacities likely aspiration/ atelectasis although cannot exclude pneumonia. Please correlate clinically. Endotracheal tube with the tip projecting approximately 5 cm above the shelbi. Approved by: Iván Quarles M.D. on 09/12/2016 at 20:[address] 09/17/2016 IMPRESSION: 1. New crazy paving pattern within the upper and midlungs when compared with prior CT dated 09/12/16. Given the acute change, this most likely represents ARDS or acute interstitial pneumonia. 2. Persistent basilar consolidation with air bronchograms consistent with bilateral pneumonia. 3. New, small bilateral low density pleural effusions. No findings to suggest empyema or pulmonary abscess. 4. New mediastinal adenopathy. Given the acute change, this likely represents infectious or reactive adenopathy. 5. New fat stranding along the right abdominal wall. The significance of this finding is unclear. This may represent focal edema if the patient was dependent in this region. Alternatively, hematoma could have this appearance. Dictated by: Jessie Gates M.D. on 09/17/2016 at 14:[address] 09/17/2016 IMPRESSION: 1. Bilateral paranasal sinus mucosal thickening consistent with sinusitis. 2. Fluid within mastoids. Clinical correlation for mastoiditis. 3. Leftward nasal septum deviation. Dictated by: Gera Monroy M.D. on 09/17/2016 at 14:22 Venous duplex ultrasound 09/18/2016 IMPRESSION: 1. No evidence of deep venous thrombosis in the right or left lower extremity. Dictated by: Alexey Lechuga M.D. on 09/18/2016 at 10:03 Chest x-ray 09/18/2016 IMPRESSION: 1. Persistent but slightly decreased pulmonary edema with medial bibasilar consolidation, atelectasis, or consolidation. 2. Small bilateral pleural effusions. Dictated by: Alexey Lechuga M.D. on 09/18/2016 at 9:51 Chest x-ray 09/19/2016 IMPRESSION: Mildly improved bibasilar pulmonary opacities left greater than right with trace pleural effusions. Dictated by: Henrry Dunbar M.D. on 09/19/2016 at 9:56 Assessment & Plan George Pan 46-year-old gentleman with history of hypertension type II diabetes mellitus, nonadherent to home medication altered mental status, witnessed 10 minute generalized seizure requiring administration of Versed and subsequent intubation. Hospital day 8 ICU day 8 Ventilator day 8 Antibiotics day 7 Acute encephalopathy, present on admission, active Etiology remains elusive, patient had blood glucose 657 on presentation, however unclear if this was primary cause of encephalopathy, or if reactive to underlying infection or other disease process. Lumbar puncture, EEG, brain, chest, sinus, abdomen, pelvis CTs remained otherwise unremarkable for definitive cause. -CTs reviewed independently in their entirety. A loading dose given and Keppra 500 mg twice a day Repeat LP Today, HHV-6 and HSV-1 PCR. Working with Risk MGMT regarding who's able to give consent. Brain MRI when able to tolerate, would need to be off sedation and paralytics. Continue on acyclovir per ID -we appreciate their expertise and recommendations. Increased oxygenation demands, not present on admission, Improved. Chest CT showing groundglass appearance, possible indication for onset of ARDS, PF ratio 87 on 09/18/16. Chest x-ray shows improvement with Diuresis and Increased PEEP - chest x-rays independently and personally reviewed by myself and discussed at multidisciplinary rounds Maintains SpO2 with decreas FIO2 to 60% from 90% yesterday. 550, 16, 60% FiO2, PEEP 16 Keep PEEP at [id number] Acute drug reaction, not present on admission, improved Red rash and fever suspected to be due to meropenem, has subsequently been changed to Levaquin for treatment of aspiration pneumonia Steroids and diphenhydramine have been administered Fever abated, rash now diffuse with papular petechial appearance. Continue to monitor Acute aspiration pneumonia, present on admission, active Tracheal excretions positive for Klebsiella oxytoca and light fungal growth Continue on Levaquin, antibiotic day 8 Continue on micafungin, antifungal day 4 procalcitonin stable, 0.46 today. Continue to monitor q24hrs. Re-culture ET tube Pending. Cardiomyopathy, chronicity unknown, present on admission Echocardiogram showed left ventricular function of 40% EF with apical hypokinesis Possibly stress-induced Troponins were trended and have normalized Cardiac catheterization showed no stenosis or occlusions to coronary arteries Patient is 16 L up since admission, keep fluids at TKO Continue Furosemide 40mg BID Chronic uncontrolled diabetes mellitus type II, present on admission, active A1c 11.3 on admission, fasting a.m. glucose remains above 200 Receiving insulin high-dose correctional scale. Start Long acting insulin -10units Glargine NOW. 10 units qHS with titration to AM fasting blood glucose <150. Acute fever, not present on admission, Resolved. Presented on day 3 of hospitalization, believed to be due to drug reaction. Fever broke over night, remains <38.0C. Leukocytosis resolved. Bilateral lower extremity DVT ultrasound evaluation negative Repeat blood cultures drawn, No growth to date. Continue to monitor with vitals. APAP with Temp >39.0C per ID Recs. Long-term use propofol, not present on admission, Active Continues of propofol for sedation. Triglycerides 221 on 09/18/16, decreased from admission level (>500) Lipid panel every 72 hours to monitor lipids/triglycerides for AZUL. Leukocytosis, present on admission, resolved Has returned to normal levels. Based on complexity of case, continued back management, anticipate maintaining an ICU another 3-5 days. GI prophylaxis famotidine Pain management, sedation with propofol, fentanyl DVT prophylaxis subcutaneous heparin Remains full code GI Prophylaxis: H2 kelly VTE Prophylaxis: Sub-Q Heparin (Unfractionated), SCDs VTE Mechanical Devices: Intermittant Pneumatic CD Resuscitation Status: CPR: Attempt Resuscitation Attending Statement I have seen and examined this patient with the resident physician. Vital signs , labs, imaging have been reviewed. I agree with the assessment and plan above. Please refer to my separately dictated progress note for any modifications to above. Marianela Hassan M.D. Pulmonary and Critical Care medicine Pager [phone] [place] DO Sep 19, 2016 10:52 Marianela Hassan MD Sep 19, 2016 16:18
--- NOTE | 2016-09-19 11:45 | PROG NOTE ---
[address] [address] PROGRESS NOTE PATIENT: FROYLAN FRAGA : 1970 MR#: [id number] ADMIT: 09/12/2016 JOB ID: [id number] DATE: 09/19/2016 PULMONARY CRITICAL CARE PROGRESS NOTE: The patient is a 46-year-old man presenting to the hospital with altered mental status and seizure on September 12, 2016 complicated by respiratory failure, encephalopathy and sepsis. The patient was seen and evaluated with resident physician, Crow Berry. Please refer to a separate detailed note for additional information. INTERVAL HISTORY: Sedation is being lightened. T-max 37.9 today. In general intubated, sedated, unresponsive. Skin: Diffuse maculopapular rash on the torso and legs visualized which was thought to be a drug rash. Chest is clear to auscultation. He is currently unresponsive to me. Ins and outs: He did put out 3 L but it is still net 1.2 L positive. LABORATORIES: Reviewed. Procalcitonin remains elevated at 0.46, unchanged from prior. Cultures: No new data. All cultures are negative to date. IMAGING: Chest x-ray reviewed and shows bibasilar effusions improved, still some atelectasis visualized bilaterally at the bases. Arterial blood gas from this morning shows pH 7.47, pCO2 of 42, pO2 of 82, bicarbonate of 30. ASSESSMENT AND RECOMMENDATIONS: 1. Acute hypoxic respiratory failure, intubated September 12. 2. Acute encephalopathy. 3. Septic shock-improved. 4. Persistent fever. 5. Cardiomyopathy with EF of 40% and areas of apical hypokinesis. A 46-year-old man presenting with altered mental status, agitated and combative with witnessed seizure, subsequently intubated for obtundation on September 12. He has had fevers since day three of admission but had been afebrile for the first few days. He continues to be febrile with highest temp yesterday of 38.4. With regards to his mentation, we have been steadily decreasing his sedation and he is now completely off the midazolam and the fentanyl is at half the dose it was yesterday. He is still on propofol and I think we can wean this last. Triglyceride level was checked yesterday. Initial lumbar puncture was negative so we are going to repeat another one today to rule out herpes encephalitis. In the meantime, with regards to antibiotics, he is on acyclovir for the possibility of herpes encephalitis, levofloxacin for the possibility of bacterial infection, as well as micafungin for the possibility of fungal infection. I am not really sure that the micafungin is necessary, but because his fever started three days into the hospitalization, I suppose this is a reasonable choice at this point. He was initially on meropenem and developed a drug rash that has been attributed to the meropenem and it was stopped a couple of days ago. Renal function is stable. We will continue diuresis since he is significantly volume overloaded. Even with two doses of Lasix yesterday, he was still net positive so we will try to reduce intake today, but much of it seems to be antibiotic related and, therefore, unavoidable. Repeat Lasix 40 mg b.i.d. today. He is on appropriate DVT and GI prophylaxis. He is a FULL CODE. Family situation and official legal next of kin need to be clarified. Palliative care is involved. The patient is a FULL CODE at this time. CRITICAL CARE TIME: 40 minutes.
[2016-09-19] MEDS: Furosemide 10 mg/mL 4 mL Inj IVPUSH SCH ×2 (12:28→20:11)
[2016-09-19] MEDS ORDERED: Cisatracurium 2,000 mCg/mL 10 mL Inj IV ONE (13:30)
--- NOTE | 2016-09-19 14:30 | DRSVH ---
PROCEDURE: X-RAY LUMBAR PUNCTURE ([id number]) INDICATIONS: Seizure, encephalopathy, evaluate for Herpes. TECHNIQUE: The indications, alternatives, benefits, risks, and complications were explained to the patient. [place] har[place] informed consent was obtained and placed in the chart. The patient was placed in a prone positi on on the fluoroscopy table, and a level was chosen for percutaneous access under fluoroscopic guidan ce. The site was prepped and draped in a sterile fashion. After local anaesthetic, a spinal needle was then used to enter the intrathecal space, with return of cerebrospinal fluid. After obtaining sufficient fluid, the needle was then withdrawn, and a bandage applied to the punctur e site. FINDINGS: Puncture level: L2-L3 Needle: Blunt tipped spinal needle. Opening pressure: 14 cm. CSF volume and description: 6 cc of clear CSF Medications: 1% lidocaine for anaesthesia. Complications: None Laboratories: As ordered by referring clinician. IMPRESSION: Successful fluoroscopically guided lumbar puncture. Dictated by: Milena Bernal MD, PhD on 09/19/2016 at 14:27 Approved by: Milena Bernal MD, PhD on 09/19/2016 at 14:28
--- NOTE | 2016-09-19 15:04 | PCM.PALLBR ---
Palliative Brief Note Date of Service Sep 19, 2016 . Returned to reevaluate patient. He remained sedated on the ventilator. No family members were available for consultation throughout the day. Reviewed his case on rounds with the medical/critical care teams and then returned later to speak again with Dr. Hassan regarding consent issues. Also reviewed surrogate/POA issues with LOST CHARGE CARD CLERK's- ultimately, consent could not be obtained for his necessary procedure from family members and so medical/ critical care team physicians have documented need and will proceed (which I fully support and endorse in this setting). Palliative will continue to follow and engage with family as able. Eliazar Gutierres MD Sep 19, 2016 15:04
[2016-09-19] MEDS: fentaNYL 2,500 mCg/250 mL 2,500 MCG in IV Premix 1 EACH IV SCH (15:25)
--- NOTE | 2016-09-19 16:30 | PCM.PNMED ---
Subjective Date of Service Sep 19, 2016 Subjective Patient is intubated and sedated, ROS and subjective are not obtainable. Overnight events noted. Exam Vital Signs Vital Sign - Last Date Time Temp Pulse Resp B/P Pulse Ox O2 Delivery O2 Flow Rate FiO2 09/19/16 15:35 98 149/85 98 60 09/19/16 12:00 37.3 20 Mechanical Ventilator Intake and Output 09/18/16 09/18/16 09/19/16 Cumulative From/Thru 15:00 23:00 07:00 09/12/16 17:31 - 09/19/16 06:25 Intake Total 2302 ml 2394 ml 84833 ml Output Total 2300 ml 1725 ml 94010 ml Balance 2 ml 669 ml 43484 ml Intake Oral 480 ml IV Total 1727 ml 1547 ml 67974 ml Tube Feeding 455 ml 647 ml 2845 ml Tube Irrigant 120 ml 200 ml 1100 ml Output Urine Total 2300 ml 1725 ml 01951 ml Gastric Drainage Total 1625 ml # Bowel Movements 0 Exam Sedated, endotracheal tube in place. OG tube in place. Patient arouses with any tactile stimulation. Does not open eyes. His evidence of gross anasarca. Anicteric sclera. Lungs are clear with normal rate and effort Heart is regular without murmur gallop or rub Abdomen soft nontender, and distended Extremities are with 2+ edema. Skin is notable for a macular rash with the torso and arms. This is more bolus posteriorly for the patient was not wobbled at this time. IVs and Medications Medications Reviewed: Medications were reviewed in detail Lab and Diagnostics Result Diagram: 09/19/16 0300 09/19/16 0300 X-Rays, CTs and MRIs CT BRAIN WITHOUT CONTRAST IMPRESSION: No acute intracranial process. Right parietal scalp swelling/ hematoma. Approved by: Iván Quarles M.D. on 09/12/2016 at 18:29 PROCEDURE: CT CHEST, ABDOMEN AND PELVIS WITH CONTRAST IMPRESSION: Bilateral dependent consolidations suggesting aspiration but superimposed pneumonia cannot be excluded. Recommend clinical correlation. Elsewhere, no acute abnormality. Normal appendix. Colonic diverticulosis without evidence of acute inflammation. Intraluminal gas within the bladder although this could be from catheterization since a Montelongo catheter is present. Please correlate clinically. Approved by: Iván Quarles M.D. on 09/12/2016 at 19:08 X-RAY CHEST ONE VIEW, PORTABLE IMPRESSION: Bilateral perihilar and medial basilar patchy opacities likely aspiration/ atelectasis although cannot exclude pneumonia. Please correlate clinically. Endotracheal tube with the tip projecting approximately 5 cm above the shelbi. Approved by: Iván Quarles M.D. on 09/12/2016 at 20:[address] 09/17/2016 IMPRESSION: 1. New crazy paving pattern within the upper and midlungs when compared with prior CT dated 09/12/16. Given the acute change, this most likely represents ARDS or acute interstitial pneumonia. 2. Persistent basilar consolidation with air bronchograms consistent with bilateral pneumonia. 3. New, small bilateral low density pleural effusions. No findings to suggest empyema or pulmonary abscess. 4. New mediastinal adenopathy. Given the acute change, this likely represents infectious or reactive adenopathy. 5. New fat stranding along the right abdominal wall. The significance of this finding is unclear. This may represent focal edema if the patient was dependent in this region. Alternatively, hematoma could have this appearance. Dictated by: Jessie Gates M.D. on 09/17/2016 at 14:[address] 09/17/2016 IMPRESSION: 1. Bilateral paranasal sinus mucosal thickening consistent with sinusitis. 2. Fluid within mastoids. Clinical correlation for mastoiditis. 3. Leftward nasal septum deviation. Dictated by: Gera Monroy M.D. on 09/17/2016 at 14:22 Venous duplex ultrasound 09/18/2016 IMPRESSION: 1. No evidence of deep venous thrombosis in the right or left lower extremity. Dictated by: Alexey Lechuga M.D. on 09/18/2016 at 10:03 Chest x-ray 09/18/2016 IMPRESSION: 1. Persistent but slightly decreased pulmonary edema with medial bibasilar consolidation, atelectasis, or consolidation. 2. Small bilateral pleural effusions. Dictated by: Alexey Lechuga M.D. on 09/18/2016 at 9:51 Chest x-ray 09/19/2016 IMPRESSION: Mildly improved bibasilar pulmonary opacities left greater than right with trace pleural effusions. Dictated by: Henrry Dunbar M.D. on 09/19/2016 at 9:56 Assessment & Plan George Pan 46-year-old gentleman with history of hypertension type II diabetes mellitus, nonadherent to home medication altered mental status, witnessed 10 minute generalized seizure requiring administration of Versed and subsequent intubation. Hospital day 9 ICU day 9 Ventilator day 9 Antibiotics day 8 #. Acute encephalopathy, present on admission, active Etiology remains elusive, patient had blood glucose 657 on presentation, however unclear if this was primary cause of encephalopathy, or if reactive to underlying infection or other disease process. Lumbar puncture, EEG, brain, chest, sinus, abdomen, pelvis CTs remained otherwise unremarkable for definitive cause. -CTs reviewed independently in their entirety. A loading dose given and Keppra 500 mg twice a day Repeat LP Today, HHV-6 and HSV-1 PCR. The CSF is notable for a slightly high protein and glucose. Working with Risk MGMT regarding who's able to give consent. Brain MRI when able to tolerate, would need to be off sedation and paralytics. Continue on acyclovir per ID -we appreciate their expertise and recommendations. #. Acute respiratory failure with hypoxia, not present on admission, stable requiring a FiO2 of 0.60 and a PEEP of 14-16.. Chest CT showing groundglass appearance, possible indication for onset of ARDS, PF ratio 87 on 09/18/16. Chest x-ray shows improvement with Diuresis and Increased PEEP - chest x-rays independently and personally reviewed by myself and discussed at multidisciplinary rounds Maintains SpO2 with decreas FIO2 to 60% from 90% yesterday. 550, 16, 60% FiO2, PEEP 16 Keep PEEP at [id number] #. Acute drug reaction, not present on admission, improving. Red rash and fever suspected to be due to meropenem, has subsequently been changed to Levaquin for treatment of aspiration pneumonia Steroids and diphenhydramine have been administered Fever abated, rash now diffuse with papular petechial appearance. Continue to monitor. The patient does have bolus areas of skin rash on the posterior aspect of his body and more macular rash on the anterior aspect. #. Acute aspiration pneumonia, present on admission, active Tracheal excretions positive for Klebsiella oxytoca and light fungal growth Continue on Levaquin, antibiotic day 8 Continue on micafungin, antifungal day 4 procalcitonin stable, 0.46 today. Continue to monitor q24hrs. Re-culture ET tube Pending. Probable Chronic systolic heart failure, cpresent on admission and active. Echocardiogram showed left ventricular function of 40% EF with apical hypokinesis Possibly stress-induced Troponins were trended and have normalized Cardiac catheterization showed no stenosis or occlusions to coronary arteries Patient is 16 L up since admission, keep fluids at TKO Continue Furosemide 40mg BID peripheral continue diuresis. We will also try to concentrate his acyclovir at all possible. Uncontrolled diabetes mellitus type II, present on admission, active A1c 11.3 on admission, fasting a.m. glucose remains above 200 Receiving insulin high-dose correctional scale. Start Long acting insulin -10units Glargine NOW. 10 units qHS with titration to AM fasting blood glucose <150. We will plan on titrating his daily Lantus based on his results with 26 today. GI prophylaxis famotidine Pain management, sedation with propofol, fentanyl DVT prophylaxis subcutaneous heparin Remains full code GI Prophylaxis: H2 kelly VTE Prophylaxis: Sub-Q Heparin (Unfractionated), SCDs VTE Mechanical Devices: Intermittant Pneumatic CD Resuscitation Status: CPR: Attempt Resuscitation Luis Stuart MD Sep 19, 2016 16:30
--- NOTE | 2016-09-19 16:42 | NUR ---
Lumbar Puncture.. Pt remains intubated with same vent settings. Continues to have large amts of creamy ETT secretions. Was taken to Xray dept for LP under floroscopy. Accompanied by RN x2 and RTx2 on portable vent. Pt was semi prone for the procedure and was given Nimbex IV to paralyze for the procedure per Dr Pacheco. Pt hodan procedure well. Will attempt to reduce Fentanyl now that the procedure is completed. Is having diarrhea stools and FMS placed to protect skin. Noted to have purple colored blister on R inner arm. Pt's mother updated over phone by .
--- NOTE | 2016-09-19 17:06 | NUR ---
Social Work Note: Continued Discharge Planning/Multidisciplinary Rounds Data& Assessment: Pt was discussed in AM rounds today, per MD pt remains on the vent. Pt excepted to be on the vent for numerous days to come. CHICHI met with pt step mom Ainsley at bedside to check in and assess for any unmet needs. MD is looking for NOK for decision making on pt behalf. Pt "" erick is not his legal spouse. Pt step mom is going to try and get in touch with pt biological children in [place]. Pt step mom denies any other needs at this time. SW to continue to follow for MD orders and pt prognosis. Plan: Pt remains on the vent. SW to continue to follow for MD orders and pt prognosis. RYAN Leija
[2016-09-19] MEDS: Insulin GLARgine 100 Unit/mL Syringe SUBQ SCH (20:14)
[2016-09-19 20:24] LABS: APPEARANCE,CSF CLEAR (CLEAR); COLOR,CSF COLORLESS (COLORLESS)
[2016-09-19 20:25] LABS: WHITE BLOOD CELL,CSF 1 /mm3 (0-5)
[2016-09-19] MEDS ORDERED: Insulin GLARgine 100 Unit/mL Syringe SUBQ SCH (21:00)
[2016-09-20] VITALS (13 sets, daily range): BP systolic 129–182; BP diastolic 59–100; PULSE 97–120; RESP 16–20; O2SAT 95–100
[2016-09-20] MEDS: Propofol Inj 1,000,000 MCG in IV Premix 1 EACH IV SCH ×6 (00:04→22:53)
[2016-09-20] MEDS: Albuterol-Ipratropium 3 mL Inhalation Solution NEB SCH ×6 (00:18→20:30)
[2016-09-20] MEDS: SODIUM CHLORIDE 0.9% IV SCH ×2 (00:23→08:58)
[2016-09-20] MEDS: ACYCLOVIR IV SCH ×2 (00:23→08:58)
[2016-09-20] MEDS: Chlorhexidine 0.12% 15 mL Oral Solution MT SCH ×6 (00:23→20:35)
[2016-09-20] MEDS: Heparin 5,000 Unit/mL Inj SUBQ SCH ×3 (00:26→17:19)
--- NOTE | 2016-09-20 01:37 | NUR ---
P) Cardiac/Respiratory Pt. tachycardic and hypertensive tonight, also much more restless, pulling on restraints, opens eyes to command but does not follow any other commands, does not nod or shake his head, or water engineer but does appear to track for short amounts of time. Breath sounds in lungs are less coarse than previous nights, still has rales in the bases but less mucous suctioned from ET tube and cough is stronger. Continues febrile, T-max so far is 37.6c orally. I) Meds per 's orders, titrating fentanyl for pain, turning q2h and floating heels. E) Currently resting quietly with eyes closed.
[2016-09-20] MEDS: Insulin Human REGular 300 Unit/3 mL Inj SUBQ SCH ×4 (02:32→20:37)
--- NOTE | 2016-09-20 04:11 | ABG ---
DateTimeAnalyzed 04:04:00 -_ pH ____7.454 - 7.350 7.450 pCO2 ___45.0__ -mmHg 35.0 45.0 pO2 187 -mmHg 69.0 116 HCO3- ___31.1__ -mmol/L 22.0 26.0 ABE ____6.7__ -mmol/L -2.0 2.0 tHb ___13.2__ -g/dL O2Hb ___98.0__ -% COHb ____0.6__ -% MetHb ____0.5__ -% sO2 ___99.1__ -% 25.0 FIO2 ___60.0__ -% PEEP ___14.0__ -cmH2O Set_RR ___14.0__ -b/min Vt __550.0__ -L Drawn By AF - Date/Time Notified____ 04:09:00 -_ Spontaneous_RR ___14.0__ -b/min Oxygen Device 1 VENTILATOR - Notified By AF - B 758 -mmHg tO2 ___18.6__ -Vol% OrderingPhysicianInitials mf - Luis test _Positive -
[2016-09-20 04:33] LABS: Mean Corpuscular Hemoglobin 30.2 pg (27.0-35.0); Mean Corpuscular Volume 90.2 fL (81-100)
[2016-09-20 04:34] LABS: BASOPHILS % (AUTO) 0.4 % (0-3); EOSINOPHILS % (AUTO) 4.2 % (0-5); NEUTROPHILS % (AUTO) 73.7 % (40-74); Platelet Count 307 bil/L (150-400)
[2016-09-20 04:50] LABS: INR 0.98 ratio
[2016-09-20 05:04] LABS: Magnesium 2.1 mg/dL (1.6-2.6); Phosphorus 4.2 mg/dL (2.5-4.9)
--- NOTE | 2016-09-20 07:57 | DRSVH ---
PROCEDURE: X-RAY CHEST ONE VIEW, PORTABLE ([id number]) INDICATIONS: intubated pt. with pneumonia TECHNIQUE: One view of the chest was acquired. COMPARISON: [facility], CR, XR CHEST 1VW (PORTABLE), 09/19/2016, 5:23. FINDINGS: Surgical changes and devices: Right IJ CVC tip in upper SVC. Enteric tube with tip below the diaphrag m. ET tube with tip 8.5 CM above the shelbi. Lungs and pleura: No pleural effusions or pneumothorax. Improving bibasilar infiltrates. Mediastinum: Mediastinal contours appear normal. Heart size is normal. Bones and chest wall: No suspicious bony lesions. Overlying soft tissues appear unremarkable. IMPRESSION: 1. Improving bibasilar pulmonary opacities. 2. ET tube with tip 8.5 CM above the shelbi. Consider advancement for optimal function. Dictated by: Henrry Dunbar M.D. on 09/20/2016 at 7:52 Approved by: Henrry Dunbar M.D. on 09/20/2016 at 7:54
[2016-09-20] MEDS: Insulin GLARgine 100 Unit/mL Syringe SUBQ SCH ×2 (08:27→20:36)
[2016-09-20] MEDS: Polyethylene Glycol (PEG) 17 Gm Powder PO SCH ×2 (08:30→20:23)
[2016-09-20] MEDS: Senna-Docusate 8.6-50 mg Tablet PO SCH ×2 (08:30→20:23)
--- NOTE | 2016-09-20 08:46 | PROG NOTE ---
[address] [address] PROGRESS NOTE PATIENT: FROYLAN FRAGA : 1970 MR#: [id number] ADMIT: 09/12/2016 JOB ID: [id number] DATE: 09/20/2016 REASON FOR FOLLOW UP: New onset seizure, encephalopathy, respiratory failure, and probable ARDS. INTERVAL HISTORY: The patient is little changed this morning. He continues on the ventilator and is sedated, though is clearly more awake in that his eyes were open. He seems to track around the room for the first time, but he is restrained, intubated, somewhat sedated, and obviously not able to provide any additional history. This case was discussed with the ICU team and nursing. PHYSICAL EXAMINATION: Reveals an afebrile, restrained gentleman in the ICU. His temperature right now 37.7. He has not been above 38 degrees now for 36 hours. Pulse 110 sinus tach. Respiratory rate is ventilator dependent. Blood pressure 140/80. He is not on vasopressor agents. He is on 60% FiO2, 14 of PEEP, and saturating 100%. Examination of the eyes reveals that they are open and tracking for the first time. No conjunctivitis or scleral icterus is noted. Oral endotracheal tube and orogastric tube in good position. His right neck central line appears free of infection. Lungs relatively clear except crackles at the bases and dependent areas. Cardiac tones tachycardic without overt murmur. Abdomen is completely soft and nontender today. The penis and scrotum appear normal. Montelongo catheter is in place. Extremities are well perfused. The erythematous macular drug type rash he has across his torso is fading. LABORATORIES: Include white count 8500, normal diff today. No notable eosinophilia is 4%. Creatinine 0.83. LFTs are normal. Procalcitonin stable at 0.44. Urinalysis without white cells. Microstudies include an extensive array of basically negative cultures except one sputum which had a light growth of Klebsiella back on the . More recent cultures include negative blood cultures from the and and these include numerous fungal blood cultures. Yesterday's repeat spinal fluid had one white blood cell. The CSF protein is now normal. PCR panel on spinal fluid is running. IMAGING: Today includes a chest x-ray which by my view is clearing especially in the bases bilaterally. There is still some interstitial type infiltrate. That is my interpretation and according to the radiologist there are improving bibasilar infiltrates, so we agree. IMPRESSION: This patient seems to be improving though he remains ventilator dependent requiring fairly significant FiO2 and PEEP. His chest x-ray clearly is improving this morning and his lungs sound better by auscultation. His fevers are decreased, and he has had no temperature above 38 degrees for 36 hours. Additionally his rash is starting to fade, and I think the fever and the drug rash are in fact related. The repeat lumbar puncture is benign. He has normal CSF protein and only one white blood cell at this point, so I think herpes simplex is extraordinarily unlikely. The herpes PCR panel on spinal fluid was not ordered yesterday so I have added it this morning, and we await those results in about an hour. RECOMMENDATIONS: 1. Will continue with levofloxacin and micafungin at least through another day or so, but I think we are nearing the end of antibiotic therapy. Given the negative cultures and the patient's improvement. 2. Once this HSV PCR has returned negative on the [employer] this morning we can drop the acyclovir. 3. Will continue to closely follow this patient with you, but I think that it is becoming more and more clear that his fever was actually due to a drug reaction which produced the rash as well as the fever, and we are probably nearing the end of appropriate antibiotic therapy here on day eight.
[2016-09-20] MEDS: levoFLOXacin Inj 750 MG in IV Premix 1 EACH IV SCH (08:56)
[2016-09-20] MEDS: Micafungin Inj 150 MG in 0.9% Sodium Chloride 100 ML IV SCH (09:51)
[2016-09-20] MEDS: Furosemide 10 mg/mL 4 mL Inj IVPUSH SCH ×2 (09:51→20:36)
[2016-09-20] MEDS: fentaNYL 2,500 mCg/250 mL 2,500 MCG in IV Premix 1 EACH IV SCH (10:51)
--- NOTE | 2016-09-20 11:02 | PCM.PNMED ---
Subjective Date of Service Sep 20, 2016 Subjective Restless and pulling at lines overnight. Remains on ventilator, occasional coughing, blood pressure increased, remained afebrile, MAXIMUM TEMPERATURE 37.7 CSF PCR negative 2 Exam Vital Signs Vital Sign - Last Date Time Temp Pulse Resp B/P Pulse Ox O2 Delivery O2 Flow Rate FiO2 09/20/16 09:00 112 144/80 100 50 09/20/16 04:00 37.7 16 Mechanical Ventilator Intake and Output 09/19/16 09/19/16 09/20/16 Cumulative From/Thru 15:00 23:00 07:00 09/12/16 17:31 - 09/20/16 06:47 Intake Total 1455 ml 2300 ml 82204 ml Output Total 4050 ml 3075 ml 04759 ml Balance -2595 ml -775 ml 58659 ml Intake Oral 480 ml IV Total 1455 ml 1418 ml 46228 ml Tube Feeding 641 ml 3486 ml Tube Irrigant 241 ml 1341 ml Output Urine Total 3550 ml 3025 ml 92713 ml Stool Total 500 ml 50 ml 550 ml Gastric Drainage Total 1625 ml # Bowel Movements 2 2 Exam General: Laying in bed, uncovered, HEENT: Normocephalic, atraumatic, and point pupils, pupils midline, endotracheal tube in place, orogastric tube in place, central line to right IJ in place and dressed, Cardiovascular: Tachycardic, no clicks murmurs rubs, peripheral pulses 2/4 equal bilaterally Pulmonary: Diffuse Rhonchi. Abdominal: Soft to palpation, bowel sounds present 4, no hepatosplenomegaly. Negative rebound. Extremities: No edema appreciated. No tenderness, asymmetry. Neuro: GCS 3i MSK: Muscle mass intact. Derm: generalized erythematous petechial rash on back, posterior brachium, with numerous bullae, Nikolsky (-). Lab and Diagnostics Result Diagram: 09/20/16 0410 09/20/16 041 X-Rays, CTs and MRIs CT BRAIN WITHOUT CONTRAST IMPRESSION: No acute intracranial process. Right parietal scalp swelling/ hematoma. Approved by: Iván Quarles M.D. on 09/12/2016 at 18:29 PROCEDURE: CT CHEST, ABDOMEN AND PELVIS WITH CONTRAST IMPRESSION: Bilateral dependent consolidations suggesting aspiration but superimposed pneumonia cannot be excluded. Recommend clinical correlation. Elsewhere, no acute abnormality. Normal appendix. Colonic diverticulosis without evidence of acute inflammation. Intraluminal gas within the bladder although this could be from catheterization since a Montelongo catheter is present. Please correlate clinically. Approved by: Iván Quarles M.D. on 09/12/2016 at 19:08 X-RAY CHEST ONE VIEW, PORTABLE IMPRESSION: Bilateral perihilar and medial basilar patchy opacities likely aspiration/ atelectasis although cannot exclude pneumonia. Please correlate clinically. Endotracheal tube with the tip projecting approximately 5 cm above the shelbi. Approved by: Iván Quarles M.D. on 09/12/2016 at 20:[address] 09/17/2016 IMPRESSION: 1. New crazy paving pattern within the upper and midlungs when compared with prior CT dated 09/12/16. Given the acute change, this most likely represents ARDS or acute interstitial pneumonia. 2. Persistent basilar consolidation with air bronchograms consistent with bilateral pneumonia. 3. New, small bilateral low density pleural effusions. No findings to suggest empyema or pulmonary abscess. 4. New mediastinal adenopathy. Given the acute change, this likely represents infectious or reactive adenopathy. 5. New fat stranding along the right abdominal wall. The significance of this finding is unclear. This may represent focal edema if the patient was dependent in this region. Alternatively, hematoma could have this appearance. Dictated by: Jessie Gates M.D. on 09/17/2016 at 14:[address] 09/17/2016 IMPRESSION: 1. Bilateral paranasal sinus mucosal thickening consistent with sinusitis. 2. Fluid within mastoids. Clinical correlation for mastoiditis. 3. Leftward nasal septum deviation. Dictated by: Gera Monroy M.D. on 09/17/2016 at 14:22 Venous duplex ultrasound 09/18/2016 IMPRESSION: 1. No evidence of deep venous thrombosis in the right or left lower extremity. Dictated by: Alexey Lechuga M.D. on 09/18/2016 at 10:03 Chest x-ray 09/18/2016 IMPRESSION: 1. Persistent but slightly decreased pulmonary edema with medial bibasilar consolidation, atelectasis, or consolidation. 2. Small bilateral pleural effusions. Dictated by: Alexey Lechuga M.D. on 09/18/2016 at 9:51 Chest x-ray 09/19/2016 IMPRESSION: Mildly improved bibasilar pulmonary opacities left greater than right with trace pleural effusions. Dictated by: Henrry Dunbar M.D. on 09/19/2016 at 9:56 Chest x-ray 09/20/2016 IMPRESSION: 1. Improving bibasilar pulmonary opacities. 2. ET tube with tip 8.5 CM above the shelbi. Consider advancement for optimal function. Dictated by: Henrry Dunbar M.D. on 09/20/2016 at 7:52 Cardiac Echo Impressions Echocardiogram performed 09/13/2016 Ejection fraction 40%, apical hypokinesis. Assessment & Plan George Pan 46-year-old gentleman with history of hypertension type II diabetes mellitus, nonadherent to home medication altered mental status, witnessed 10 minute generalized seizure requiring administration of Versed and subsequent intubation. Hospital day 9 ICU day 9 Ventilator day 9 Antibiotics day 8 Acute encephalopathy, present on admission, active Etiology remains elusive, patient had blood glucose 657 on presentation, however unclear if this was primary cause of encephalopathy, or if reactive to underlying infection or other disease process. Lumbar puncture, EEG, brain, chest, sinus, abdomen, pelvis CTs remained otherwise unremarkable for definitive cause. -CTs reviewed independently in their entirety. A loading dose given and Keppra 500 mg twice a day Repeat LP negative for any viral encephalitis Acyclovir discontinued per ID -we appreciate their expertise and recommendations. Brain MRI when able to tolerate, would need to be off sedation and paralytics. Increased oxygenation demands, not present on admission, Improved. Chest CT showing groundglass appearance, possible indication for onset of ARDS, PF ratio 87 on 09/18/16. Chest x-ray shows improvement with Diuresis and Increased PEEP - chest x-rays independently and personally reviewed by myself and discussed at multidisciplinary rounds Has improved with diuresis. Maintains SpO2 with decreasing FiO2 550, 14, 50% FiO2, PEEP 12 Keep PEEP at 30lkO2W Acute drug reaction, not present on admission, improved Red rash and fever suspected to be due to meropenem, has subsequently been changed to Levaquin for treatment of aspiration pneumonia Steroids and diphenhydramine have been administered Fever abated, rash now diffuse with papular petechial appearance with bullae. Continue to monitor - ID following. Acute aspiration pneumonia, present on admission, active Tracheal excretions positive for Klebsiella oxytoca and light fungal growth Continue on Levaquin, antibiotic day 8 Micafungin day 5. procalcitonin stable, 0.49 today. Continue to monitor q24hrs. Re-culture ET tube Pending. Cardiomyopathy, chronicity unknown, present on admission Echocardiogram showed left ventricular function of 40% EF with apical hypokinesis Possibly stress-induced secondary to chronic uncontrolled hypertension Troponins were trended and have normalized Cardiac catheterization showed no stenosis or occlusions to coronary arteries Patient is 13.5 L up since admission, keep fluids at TKO Continue Furosemide 40mg BID today, then transition to PRN tomorrow, 09/21/16. Chronic uncontrolled diabetes mellitus type II, present on admission, active A1c 11.3 on admission, fasting a.m. glucose 311 today Receiving insulin high-dose correctional scale. Received 15 units glargine at bedtime, 10 units glargine's morning, blood sugar remains greater than 300 Keppra and levofloxacin being changed to oral as they were in D5W. Intention to titrate glargine to fasting blood glucose less than 150 Ongoing insulin and diabetes management per primary team Acute fever, not present on admission, Resolved. Presented on day 3 of hospitalization, believed to be due to drug reaction. Has remained afebrile 24 hours, Leukocytosis resolved. Bilateral lower extremity DVT ultrasound evaluation negative Repeat blood cultures drawn, No growth to date. Continue to monitor with vitals. APAP with Temp >39.0C per ID Recs. Long-term use propofol, not present on admission, Active Continues of propofol for sedation. Triglycerides 221 on 09/18/16, decreased from admission level (>500) Lipid panel every 72 hours to monitor lipids/triglycerides for AZUL. Leukocytosis, present on admission, resolved Has returned to normal levels. Based on complexity of case, continued back management, anticipate maintaining an ICU another 3-5 days. GI Prophylaxis: H2 kelly VTE Prophylaxis: Sub-Q Heparin (Unfractionated), SCDs VTE Mechanical Devices: Intermittant Pneumatic CD Resuscitation Status: CPR: Attempt Resuscitation Attending Statement I have seen and examined this patient with the resident physician. Vital signs , labs, imaging have been reviewed. I agree with the assessment and plan above. Please refer to my separately dictated progress note for any modifications to above. Marianela Hassan M.D. Pulmonary and Critical Care medicine Pager [phone] [place] DO Sep 20, 2016 11:02 Marianela Hassan MD Sep 21, 2016 16:08
--- NOTE | 2016-09-20 12:18 | PROG NOTE ---
[address] [address] PROGRESS NOTE PATIENT: FROYLAN FRAGA : 1970 MR#: [id number] ADMIT: 09/12/2016 JOB ID: [id number] DATE: 09/20/2016 PULMONARY CRITICAL CARE PROGRESS NOTE: The patient is a 46-year-old man presenting to the hospital with altered mental status and seizure on September 12, 2016, complicated by respiratory failure, encephalopathy and sepsis. The patient was seen and evaluated with resident physician, Crow Berry DO. Please refer to his separate detailed note for additional information. INTERVAL HISTORY: Oxygenation continues to improve. Nursing staff tells me that he is following commands, which is a significant improvement in neurologic status. Sedation is also being lightened. REVIEW OF SYSTEMS: Unable to obtain since the patient is intubated. PHYSICAL EXAMINATION: Vital signs reviewed. T-max has only been around 37.7 to 37.9 in the last 24 hours which is a significant downward trend in his fever curve. With regards to vent settings he is on 60% and 14 of PEEP but sats are 100% on this. General: Intubated. Currently sedated and diaphoretic. Chest: Clear to auscultation. Skin rash appears to be improving compared to yesterday. LABORATORIES: Reviewed. ASSESSMENT AND RECOMMENDATIONS: 1. Acute hypoxic respiratory failure. Intubated on September 12. 2. Acute encephalopathy. 3. Persistent fevers. 4. Septic shock -- resolved. 5. Cardiomyopathy with ejection fraction of 40%. 6. History of seizure. A 46-year-old man presenting with altered mental status, agitated and combative with a witnessed seizure. Subsequently intubated on September 12. Cardiac catheterization was unrevealing for a focal acute process, although he did have an ejection fraction of 40% and areas of apical hypokinesis on his echo. He has had now two lumbar punctures to rule out herpes encephalitis. PCR on the second one as well is negative now which essentially rules out herpes encephalopathy and so, acyclovir was stopped today. He remains on levofloxacin and micafungin for infection, unknown source, but potentially, these can be stopped tomorrow per Dr. Montalvo everything else remains stable. With regards to mental status, he is now showing improvement as we decrease his sedation, following commands. He is on fentanyl of 100 and propofol. Continue IV Lasix for diuresis. He is diuresing well and his oxygenation is improving. We get him to 40% and 8 cm of PEEP or less. I would like to do a spontaneous breathing trial. Palliative Care is involved with regards to family situation and official legal next of kin. CRITICAL CARE TIME: 50 minutes.
[2016-09-20] MEDS ORDERED: Insulin GLARgine 100 Unit/mL Syringe SUBQ ONE (14:25)
--- NOTE | 2016-09-20 14:27 | PCM.PNMED ---
Subjective Date of Service Sep 20, 2016 Subjective Patient is intubated and sedated. He is more awake today following some commands. ROS and subjective are not obtainable. Overnight events noted. Exam Vital Signs Vital Sign - Last Date Time Temp Pulse Resp B/P Pulse Ox O2 Delivery O2 Flow Rate FiO2 09/20/16 11:59 112 144/80 99 40 09/20/16 04:00 37.7 16 Mechanical Ventilator Intake and Output 09/19/16 09/19/16 09/20/16 Cumulative From/Thru 15:00 23:00 07:00 09/12/16 17:31 - 09/20/16 06:47 Intake Total 1455 ml 2300 ml 72688 ml Output Total 4050 ml 3075 ml 89677 ml Balance -2595 ml -775 ml 91149 ml Intake Oral 480 ml IV Total 1455 ml 1418 ml 05102 ml Tube Feeding 641 ml 3486 ml Tube Irrigant 241 ml 1341 ml Output Urine Total 3550 ml 3025 ml 92176 ml Stool Total 500 ml 50 ml 550 ml Gastric Drainage Total 1625 ml # Bowel Movements 2 2 Exam Intubated and sedated. 18 G-tube in place. Patient has rales AND does follow with eyes at this time. Anicteric sclera. Lungs are clear with normal rate and effort Heart is regular without murmur gallop or rub Abdomen soft nontender, flat Extremities are free of edema. Skin is free of rash or lesions. IVs and Medications Medications Reviewed: Medications were reviewed in detail Lab and Diagnostics Result Diagram: 09/20/16 0410 09/20/16 0410 X-Rays, CTs and MRIs CT BRAIN WITHOUT CONTRAST IMPRESSION: No acute intracranial process. Right parietal scalp swelling/ hematoma. Approved by: Iván Quarles M.D. on 09/12/2016 at 18:29 PROCEDURE: CT CHEST, ABDOMEN AND PELVIS WITH CONTRAST IMPRESSION: Bilateral dependent consolidations suggesting aspiration but superimposed pneumonia cannot be excluded. Recommend clinical correlation. Elsewhere, no acute abnormality. Normal appendix. Colonic diverticulosis without evidence of acute inflammation. Intraluminal gas within the bladder although this could be from catheterization since a Montelongo catheter is present. Please correlate clinically. Approved by: Iván Quarles M.D. on 09/12/2016 at 19:08 X-RAY CHEST ONE VIEW, PORTABLE IMPRESSION: Bilateral perihilar and medial basilar patchy opacities likely aspiration/ atelectasis although cannot exclude pneumonia. Please correlate clinically. Endotracheal tube with the tip projecting approximately 5 cm above the shelbi. Approved by: Iván Quarles M.D. on 09/12/2016 at 20:[address] 09/17/2016 IMPRESSION: 1. New crazy paving pattern within the upper and midlungs when compared with prior CT dated 09/12/16. Given the acute change, this most likely represents ARDS or acute interstitial pneumonia. 2. Persistent basilar consolidation with air bronchograms consistent with bilateral pneumonia. 3. New, small bilateral low density pleural effusions. No findings to suggest empyema or pulmonary abscess. 4. New mediastinal adenopathy. Given the acute change, this likely represents infectious or reactive adenopathy. 5. New fat stranding along the right abdominal wall. The significance of this finding is unclear. This may represent focal edema if the patient was dependent in this region. Alternatively, hematoma could have this appearance. Dictated by: Jessie Gates M.D. on 09/17/2016 at 14:[address] 09/17/2016 IMPRESSION: 1. Bilateral paranasal sinus mucosal thickening consistent with sinusitis. 2. Fluid within mastoids. Clinical correlation for mastoiditis. 3. Leftward nasal septum deviation. Dictated by: Gera Monroy M.D. on 09/17/2016 at 14:22 Venous duplex ultrasound 09/18/2016 IMPRESSION: 1. No evidence of deep venous thrombosis in the right or left lower extremity. Dictated by: Alexey Lechuga M.D. on 09/18/2016 at 10:03 Chest x-ray 09/18/2016 IMPRESSION: 1. Persistent but slightly decreased pulmonary edema with medial bibasilar consolidation, atelectasis, or consolidation. 2. Small bilateral pleural effusions. Dictated by: Alexey Lechuga M.D. on 09/18/2016 at 9:51 Chest x-ray 09/19/2016 IMPRESSION: Mildly improved bibasilar pulmonary opacities left greater than right with trace pleural effusions. Dictated by: Henrry Dunbar M.D. on 09/19/2016 at 9:56 Chest x-ray 09/20/2016 IMPRESSION: 1. Improving bibasilar pulmonary opacities. 2. ET tube with tip 8.5 CM above the shelbi. Consider advancement for optimal function. Dictated by: Henrry Dunbar M.D. on 09/20/2016 at 7:52 Cardiac Echo Impressions Echocardiogram performed 09/13/2016 Ejection fraction 40%, apical hypokinesis. Assessment & Plan #. Acute encephalopathy, present on admission, active and improving. Etiology remains elusive, patient had blood glucose 657 on presentation, however unclear if this was primary cause of encephalopathy, or if reactive to underlying infection or other disease process. Lumbar puncture, EEG, brain, chest, sinus, abdomen, pelvis CTs remained otherwise unremarkable for definitive cause. -CTs reviewed independently in their entirety. A loading dose given and Keppra 500 mg twice a day Repeat LP started with a negative HSV PCR. Stopping most antibiotics today including micafungin. Acyclovir was stopped today. #. Acute respiratory failure with hypoxia, not present on admission, requiring a FiO2 of 0.60 and a PEEP of 14-16. Active and slowly improving. Chest CT showing groundglass appearance, possible indication for onset of ARDS, PF ratio 87 on 09/18/16. Chest x-ray shows improvement with Diuresis and Increased PEEP - chest x-rays independently and personally reviewed by myself and discussed at multidisciplinary rounds Maintains SpO2 with decreas FIO2 to 60% from 90% yesterday. 550, 16, 60% FiO2, PEEP 16 Keep PEEP at [id number] Continue diuresis to see if this will improve respiratory status including FiO2 demands and PEEP commands. #. Acute drug reaction, not present on admission, improving. Red rash and fever suspected to be due to meropenem, has subsequently been changed to Levaquin for treatment of aspiration pneumonia Steroids and diphenhydramine have been administered Fever abated, rash now diffuse with papular petechial appearance. Continue to monitor. The patient does have bolus areas of skin rash on the posterior aspect of his body and more macular rash on the anterior aspect. This may relate to meropenem. #. Acute aspiration pneumonia, present on admission, active Tracheal excretions positive for Klebsiella oxytoca and light fungal growth Continue on Levaquin, antibiotic day 8 Continue on micafungin, antifungal day 4 procalcitonin stable, 0.46 today. Continue to monitor q24hrs. Re-culture ET tube Pending. Stop antibiotics per ID. Probable Chronic systolic heart failure, cpresent on admission and active. Echocardiogram showed left ventricular function of 40% EF with apical hypokinesis Possibly stress-induced Troponins were trended and have normalized Cardiac catheterization showed no stenosis or occlusions to coronary arteries Patient is 16 L up since admission, keep fluids at TKO Continue Furosemide 40mg BID peripheral continue diuresis. e. Uncontrolled diabetes mellitus type II, present on admission, active A1c 11.3 on admission, fasting a.m. glucose remains above 200 Receiving insulin high-dose correctional scale. Start Long acting insulin -10units Glargine NOW. 10 units qHS with titration to AM fasting blood glucose <150. We will give an additional Lantus 20 1 now and increase Lantus to twice a day 20 units GI prophylaxis famotidine Pain management, sedation with propofol, fentanyl DVT prophylaxis subcutaneous heparin Remains full code GI Prophylaxis: H2 kelly VTE Prophylaxis: Sub-Q Heparin (Unfractionated), SCDs VTE Mechanical Devices: Intermittant Pneumatic CD Resuscitation Status: CPR: Attempt Resuscitation Luis Stuart MD Sep 20, 2016 14:27
--- NOTE | 2016-09-20 16:11 | NUR ---
Social Work: Multidisciplinary Rounds Pt discussed in am rounds; sw status remains unchanged. ELECTRICAL ELECTRONICS TECHNICIAN to continue to follow to assess for further d/c needs as pt's clinical course progresses. Rashmi Chase MSW
--- NOTE | 2016-09-20 16:43 | NUR ---
Evaluation completed. Please go to "Notes" then click on "Assessments and Notes" (bottom left corner of screen). Then select appropriate discipline tab on top of screen.
--- NOTE | 2016-09-20 18:12 | NUR ---
Inpatient Wound Nurse Patient seen by [facility]ON RN for PU Protocol Prevention. Numerous closed abrasions noted over L scapula, no drainage, dark red crusts intact. Suspected deep tissue injury observed on medial L buttock, 1 cm L x 2 cm W dark purple area, non-blanchable, with reddened area extending outward. Bordered sacral Mepilex dressing applied. Patient intubated and on appropriate surface (BRIELLE).
--- NOTE | 2016-09-20 18:41 | NUR ---
PS trial/Activity... has hodan having sedation weaned today and is now squeezing hand to command. Was able to work with PT and dangled on edge of bed for 5 minutes. Was able to hodan a pressure support trial for 1 hour. Tmax was 37.7 this shift. Hodan tube feeds well with minimal residuals. Blood glucoses have been in the 300's... MD aware and Lantus increased. B/P has been more hypertensive. Dr Stuart updated and antihypertensive prn ordered.
[2016-09-20] MEDS: LEVETIRACETAM 500 MG/5 ML PO SCH (20:35)
[2016-09-20] MEDS: Labetalol 5 mg/mL 4 mL Inj IVPUSH PRN (23:26)
[2016-09-21] VITALS (11 sets, daily range): BP systolic 129–189; BP diastolic 60–87; PULSE 72–99; RESP 16–33; O2SAT 92–99
[2016-09-21] MEDS: Heparin 5,000 Unit/mL Inj SUBQ SCH ×4 (00:05→23:53)
[2016-09-21] MEDS: Chlorhexidine 0.12% 15 mL Oral Solution MT SCH ×3 (00:05→08:30)
[2016-09-21] MEDS: Albuterol-Ipratropium 3 mL Inhalation Solution NEB SCH ×4 (00:13→12:30)
[2016-09-21] MEDS: Labetalol 5 mg/mL 4 mL Inj IVPUSH PRN ×2 (02:17→09:48)
[2016-09-21] MEDS: Insulin Human REGular 300 Unit/3 mL Inj SUBQ SCH ×4 (02:17→20:00)
[2016-09-21] MEDS: Propofol Inj 1,000,000 MCG in IV Premix 1 EACH IV SCH ×2 (02:42→06:22)
[2016-09-21 05:41] LABS: BASOPHILS % (AUTO) 0.7 % (0-3); EOSINOPHILS % (AUTO) 2.2 % (0-5); Mean Corpuscular Hemoglobin 30.6 pg (27.0-35.0); Mean Corpuscular Volume 89.6 fL (81-100); NEUTROPHILS % (AUTO) 70.7 % (40-74); Platelet Count 321 bil/L (150-400)
--- NOTE | 2016-09-21 06:15 | NUR ---
Htn P: sbp 170-180's, HR 80-90's NSR I: given labetalol 20mg IV x 2 E: SBP down to 140's mmhg.
[2016-09-21 06:18] LABS: Magnesium 2.2 mg/dL (1.6-2.6)
[2016-09-21] MEDS ORDERED: levoFLOXacin 750 mg Tablet PO ONE (08:00)
--- NOTE | 2016-09-21 08:13 | DRSVH ---
PROCEDURE: X-RAY CHEST ONE VIEW, PORTABLE ([id number]) INDICATIONS: Intubation TECHNIQUE: One view of the chest was acquired. COMPARISON: 09/20/2016 FINDINGS: Surgical changes and devices: Endotracheal tube with tip well above the shelbi, nasogastric tube with tip in the stomach, right IJ central venous catheter unchanged. Lungs and pleura: No pleural effusions or pneumothorax. Pulmonary consolidation left lower lobe medi ally appears increased, possibly related to diminished inspiration.. Mediastinum: Mediastinal contours appear normal. Heart size is normal. Bones and chest wall: No suspicious bony lesions. Overlying soft tissues appear unremarkable. IMPRESSION: 1. Support tubes in position. 2. Slight increase in degree of consolidation left lower lobe medially, correlate clinically. Short i nterval followup suggested. Dictated by: Jeremy Azevedo M.D. on 09/21/2016 at 8:08 Approved by: Jeremy Azevedo M.D. on 09/21/2016 at 8:11
[2016-09-21] MEDS: Polyethylene Glycol (PEG) 17 Gm Powder PO SCH ×2 (08:25→19:18)
[2016-09-21] MEDS: Senna-Docusate 8.6-50 mg Tablet PO SCH (08:25)
[2016-09-21] MEDS: Furosemide 10 mg/mL 4 mL Inj IVPUSH SCH ×2 (08:30→19:43)
[2016-09-21] MEDS: Insulin GLARgine 100 Unit/mL Syringe SUBQ SCH ×2 (08:47→20:00)
[2016-09-21] MEDS: LEVETIRACETAM 500 MG/5 ML PO SCH (08:48)
[2016-09-21] MEDS ORDERED: Senna-Docusate 8.6-50 mg Tablet PO PRN (09:00)
--- NOTE | 2016-09-21 09:37 | PROG NOTE ---
[address] [address] PROGRESS NOTE PATIENT: FROYLAN FRAGA : 1970 MR#: [id number] ADMIT: 09/12/2016 JOB ID: [id number] DATE: 09/21/2016 REASON FOR FOLLOW UP: Uncontrolled diabetes, new onset seizure with encephalopathy and ventilator-dependent respiratory failure. INTERVAL HISTORY: The patient's sedation is being rapidly decreased and his respiratory support is being weaned fairly rapidly. At this point, the patient is still on 100 of fentanyl, but this is decreased by half over yesterday and he is more awake and will open his eyes to command, but does not answer questions or interact significantly. This case was discussed with the nurses at the bedside in great detail. The patient has been stable overnight and his extensive drug rash has been fading. There is a small area of skin breakdown which has formed over the buttocks, but this is fairly minimal and does not appear to be infected. His urine output has remained good; though there has been ongoing problems with glucose control. Efforts are being made to prepare the patient for extubation in the next day or two if at all possible. PHYSICAL EXAMINATION: Reveals a gentleman who is intubated sedated and will open his eyes to voice, but they are only open briefly and he does not interact meaningfully. His current temperature is 38 even. He has been as high as 38.1 over the past 48 hours. Pulse 89, respiratory rate 16, blood pressure 150/74, without any vasopressors. He is now all the way down to 40% and is on a pressure support trial; though, he remains intubated. His eyes are with equal pupils. No conjunctival abnormalities. Oral endotracheal tube and oral gastric tube in good position. Lungs relatively clear anteriorly with decreased crackles. Cardiac tones regular rate and rhythm. Abdomen is soft, nontender, without organomegaly. Montelongo catheter is present. FMS is present and started to have significant stooling, but that was prompted by our medication intervention for constipation, as well as tube feedings. The skin rash is still fairly extensive. It is an erythematous macular rash in a classic drug reaction type distribution. It has faded as compared to yesterday, but is still quite extensive. DIAGNOSTIC STUDIES: Labs include a white count of 8700, creatinine 0.89. LFTs are normal this morning. Procalcitonin stable at 0.35 and I would consider that insignificant in this circumstance. Urinalysis was without white cells. Recall that our repeat lumbar puncture done on the had one white cell, negative herpes PCR. Other studies of interest include many negative blood cultures including fungal blood cultures which are negative. Spinal fluid cultures which are negative. Spinal fluid, multiplex PCR negative and a single sputum that grew Klebsiella oxytocin. Imaging includes today's chest x-ray which I compared to yesterday's on the computer, shows decreasing bibasilar infiltrates. IMPRESSION: This patient is steadily improving on his day here in the hospital and there are signs that he may be approaching a point where he could be extubated in the next day or two or three. His FiO2 and PEEP requirements have been dramatically reduced and he is oxygenating well now on just 40% on a pressure support trial. His chest x-ray is getting better. He looks better and his overall situation seems to be much improved. I think his fever is primarily a drug fever as it is constant and low level, and his rash is now fading. We have negative cultures and no evidence of ongoing infection. RECOMMENDATIONS: 1. DC levofloxacin and micafungin as of today. 2. Will continue to watch this patient with respect to his low-grade fevers, but I think they will fade as his rash does. 3. Note I will be out of town for the next nine days, returning to work October 01. I could be reached by telephone about this or any other patient as needed.
[2016-09-21] MEDS ORDERED: Insulin GLARgine 100 Unit/mL Syringe SUBQ ONE (09:40)
--- NOTE | 2016-09-21 10:53 | PCM.PNMED ---
Subjective Date of Service Sep 21, 2016 Subjective patient is intubated but less sedated. His eyes are open and he is not really following commands or even tracking. He does appear fairly calm and is moving arms and legs spontaneously. No overnight events Review of systems and subjective not obtainable as outlined above. Exam Vital Signs Vital Sign - Last Date Time Temp Pulse Resp B/P Pulse Ox O2 Delivery O2 Flow Rate FiO2 09/21/16 09:05 101 189/87 96 30 09/21/16 08:00 37.9 23 Mechanical Ventilator Intake and Output 09/20/16 09/20/16 09/21/16 Cumulative From/Thru 15:00 23:00 07:00 09/12/16 17:31 - 09/21/16 05:22 Intake Total 2065 ml 1256 ml 72228 ml Output Total 3750 ml 2375 ml 38984 ml Balance -1685 ml -1119 ml 41873 ml Intake Oral 480 ml IV Total 1358 ml 597 ml 92553 ml Tube Feeding 542 ml 459 ml 4487 ml Tube Irrigant 165 ml 200 ml 1706 ml Output Urine Total 3550 ml 2350 ml 65460 ml Stool Total 200 ml 25 ml 775 ml Gastric Drainage Total 1625 ml # Bowel Movements 2 Exam Intubated, awake. Not clearly tracking. Calm. Moving all extremities. Anicteric sclera. Lungs are clear with normal rate and effort Heart is regular without murmur gallop or rub Abdomen soft nontender, flat Extremities are free of edema. Skin is free of rash or lesions. IVs and Medications Medications Reviewed: Medications were reviewed in detail Lab and Diagnostics Result Diagram: 09/21/16 0535 09/21/16 0535 X-Rays, CTs and MRIs CT BRAIN WITHOUT CONTRAST IMPRESSION: No acute intracranial process. Right parietal scalp swelling/ hematoma. Approved by: Iván Quarles M.D. on 09/12/2016 at 18:29 PROCEDURE: CT CHEST, ABDOMEN AND PELVIS WITH CONTRAST IMPRESSION: Bilateral dependent consolidations suggesting aspiration but superimposed pneumonia cannot be excluded. Recommend clinical correlation. Elsewhere, no acute abnormality. Normal appendix. Colonic diverticulosis without evidence of acute inflammation. Intraluminal gas within the bladder although this could be from catheterization since a Montelongo catheter is present. Please correlate clinically. Approved by: Iván Quarles M.D. on 09/12/2016 at 19:08 X-RAY CHEST ONE VIEW, PORTABLE IMPRESSION: Bilateral perihilar and medial basilar patchy opacities likely aspiration/ atelectasis although cannot exclude pneumonia. Please correlate clinically. Endotracheal tube with the tip projecting approximately 5 cm above the shelbi. Approved by: Iván Quarles M.D. on 09/12/2016 at 20:[address] 09/17/2016 IMPRESSION: 1. New crazy paving pattern within the upper and midlungs when compared with prior CT dated 09/12/16. Given the acute change, this most likely represents ARDS or acute interstitial pneumonia. 2. Persistent basilar consolidation with air bronchograms consistent with bilateral pneumonia. 3. New, small bilateral low density pleural effusions. No findings to suggest empyema or pulmonary abscess. 4. New mediastinal adenopathy. Given the acute change, this likely represents infectious or reactive adenopathy. 5. New fat stranding along the right abdominal wall. The significance of this finding is unclear. This may represent focal edema if the patient was dependent in this region. Alternatively, hematoma could have this appearance. Dictated by: Jessie Gates M.D. on 09/17/2016 at 14:[address] 09/17/2016 IMPRESSION: 1. Bilateral paranasal sinus mucosal thickening consistent with sinusitis. 2. Fluid within mastoids. Clinical correlation for mastoiditis. 3. Leftward nasal septum deviation. Dictated by: Gera Monroy M.D. on 09/17/2016 at 14:22 Venous duplex ultrasound 09/18/2016 IMPRESSION: 1. No evidence of deep venous thrombosis in the right or left lower extremity. Dictated by: Alexey Lechuga M.D. on 09/18/2016 at 10:03 Chest x-ray 09/18/2016 IMPRESSION: 1. Persistent but slightly decreased pulmonary edema with medial bibasilar consolidation, atelectasis, or consolidation. 2. Small bilateral pleural effusions. Dictated by: Alexey Lechuga M.D. on 09/18/2016 at 9:51 Chest x-ray 09/19/2016 IMPRESSION: Mildly improved bibasilar pulmonary opacities left greater than right with trace pleural effusions. Dictated by: Henrry Dunbar M.D. on 09/19/2016 at 9:56 Chest x-ray 09/20/2016 IMPRESSION: 1. Improving bibasilar pulmonary opacities. 2. ET tube with tip 8.5 CM above the shelbi. Consider advancement for optimal function. Dictated by: Henrry Dunbar M.D. on 09/20/2016 at 7:52 Cardiac Echo Impressions Echocardiogram performed 09/13/2016 Ejection fraction 40%, apical hypokinesis. Assessment & Plan #. Acute encephalopathy, present on admission, active and improving. Etiology remains elusive, patient had blood glucose 657 on presentation, however unclear if this was primary cause of encephalopathy, or if reactive to underlying infection or other disease process. Lumbar puncture, EEG, brain, chest, sinus, abdomen, pelvis CTs remained otherwise unremarkable for definitive cause. -CTs reviewed independently in their entirety. A loading dose given and Keppra 500 mg twice a day Repeat LP started with a negative HSV PCR. Stopping all antibiotics and antifungals and antiretrovirals at this point. #. Acute respiratory failure with hypoxia, not present on admission, requiring a FiO2 of 0.60 and a PEEP of 14-16. Active and slowly improving. The patient has improved and his oxygen demand. This point he is on a breathing trial and we will possibly move to extubate today. #. Acute drug reaction (rash and fever), not present on admission, improving. Patient did have 1 fever last evening. At this point all antimicrobials are being completely stopped will follow clinically. #. Acute aspiration pneumonia, present on admission, resolved. Tracheal excretions positive for Klebsiella oxytoca and light fungal growth Continue on Levaquin, antibiotic day 8 Continue on micafungin, antifungal day 4 procalcitonin stable, 0.46 today. Continue to monitor q24hrs. Re-culture ET tube Pending. Stop antibiotics per ID. Probable Chronic systolic heart failure, present on admission and improving. Echocardiogram showed left ventricular function of 40% EF with apical hypokinesis Possibly stress-induced Troponins were trended and have normalized Cardiac catheterization showed no stenosis or occlusions to coronary arteries Patient is 16 L up since admission, keep fluids at TKO Continue twice a day furosemide. Uncontrolled diabetes mellitus type II, present on admission, active A1c 11.3 on admission, fasting a.m. glucose remains above 200 Receiving insulin high-dose correctional scale. Start Long acting insulin -10units Glargine NOW. 10 units qHS with titration to AM fasting blood glucose <150. Titrate up his Lantus to 60 units a day in split dosing. Severe sepsis, POA resolved. Reviewed the case and patient did have SIRS criteria as well as shock. Source of infection being aspiration pneumonia earlier this hospital course. The patient was treated with antibiotics and pressor support as well. GI prophylaxis famotidine Pain management, sedation with propofol, fentanyl DVT prophylaxis subcutaneous heparin Remains full code GI Prophylaxis: H2 kelly VTE Prophylaxis: Sub-Q Heparin (Unfractionated), SCDs VTE Mechanical Devices: Intermittant Pneumatic CD Resuscitation Status: CPR: Attempt Resuscitation Luis Stuart MD Sep 21, 2016 10:53
--- NOTE | 2016-09-21 12:17 | NUR ---
Called by nursinf to extubate pt. Pt has good air leak and cough. Pt extubated to 6 lpm oxymask with SaO2 reading 95%. No respiratory distress noted.
--- NOTE | 2016-09-21 12:27 | NUR ---
NUTRITION FOLLOW-UP: ASSESS: 46 YO male admitted to CCU with AMS, seizure activity, and pneumonia. Encephalopathy has prevented extubation; however, he is awake enough today to be successfully extubated. There is no swallow evaluation ordered at this time; feeding tube discontinued with extubation. PMHX: HTN, type 2 diabetes, back pain, polysubstance abuse, smoking. LABS: Reviewed. Glu 293, PAB 27, Procalcitonin 0.35. MEDS: Reviewed. Insulin, Senna, Keppra, Lasix. GI: FMS in place SKIN: Numerous closed abrasions noted over L scapula, no drainage, dark red crusts intact. Suspected deep tissue injury observed on medial L buttock, 1 cm L x 2 cm W dark purple area, non-blanchable, with reddened area extending outward, per Bike Technician. WT: 91.1 kg, BMI 28.0 kg/m2. Admit weight: 96 kg, BMI 29.5 kg/m2, IBW 78 kg, adj bw 83.9kg DIET: NPO NUTRITION SUPPORT DISCONTINUED: Glucerna 1.5 @ 50 ml/hr to provide 1650 kcal (2386kcal w/propofol) and 91 g protein. Add 1 packet [employer] liquid protein five times per day to provide a total of 146 g protein; meeting 100% nutrient needs. ESTIMATED NEEDS: Calories: 3675-0809 kcal/day (20-25 kcal/kg BW) Protein: 125-150 g/day (1.5-1.8 g/kg adjBW) Fluids: ~2400 ml/day (25 ml/kg BW) NUTRITION DIAGNOSIS: 1) Inadequate oral intake related to decreased ability to consume sufficient energy as evidenced by current NPO status - PERSISTS. 2) Altered nutrition related lab values related to endocrine dysfunction as evidence by A1C of 10.4 and elevated BG levels - PERSISTS. NUTRITION INTERVENTION: 1) In the event patient fails swallow evaluation, recommend restart enteral feeding per previous recommendations. MONITOR/EVALUATE: NPO status, diet advance / tolerance, PO intake, GI, labs, wt, POC, nutrition status. Follow per high nutrition risk guidelines.
--- NOTE | 2016-09-21 12:39 | PCM.PALLBR ---
Palliative Brief Note Date of Service Sep 21, 2016 . Patient status reviewed with medical/critical care teams on AM rounds. Continues slow progress. SW/case management continue to work with patient's contacts, attempting to determine and then reach appropriate NOK. Palliative team will sign off at this time. Eliazar Gutierres MD Sep 21, 2016 12:39
--- NOTE | 2016-09-21 12:50 | NUR ---
Extubation.. Pt did a ps trial throughout am and had propofol weaned off and fentanyl reduced to 10mcgs per hour. Pt became hypertensive and was given Labetolol per orders. Was also restless off sedation.. Dr Hassan came to assess pt and pt was extubated at 1214. Is non verbal and eyes will deviate to the L intermittently. Will raise his eyebrows when talked to about his dog and job. Is moving all extremeties. Given Seraquel prior to extubation as OGT had to be pulled with extubation. Is on oxymask 6 liters without desat or resp distress.
--- NOTE | 2016-09-21 12:51 | PROG NOTE ---
[address] [address] PROGRESS NOTE PATIENT: FROYLAN FRAGA : 1970 MR#: [id number] ADMIT: 09/12/2016 JOB ID: [id number] DATE: 09/21/2016 PULMONARY CRITICAL CARE PROGRESS NOTE: The patient is a 46-year-old man presenting to the hospital with altered mental status and seizure on September 12 complicated by respiratory failure, encephalopathy, and sepsis. INTERVAL HISTORY: He was doing well on a spontaneous breathing trial this morning, although getting more agitated if his sedation was lightened. REVIEW OF SYSTEMS: Unable to obtain. PHYSICAL EXAMINATION: Vital signs reviewed. T-max of 38.1 in the last 24 hours. Pulse 90, respirations 20, BP 146/76, sats 96% on 40% FiO2. General: He is currently intubated, on very minimal sedation. Appears agitated, trying to move his arms and legs, with eyes rolled upwards. He is doing well on a spontaneous breathing trial with respiratory rate around 20 and tidal volumes in the mid 300s. LABORATORY: Reviewed. INTAKE AND OUTPUT: He is net 2.5 L negative. IMAGING: Chest x-ray reviewed. Improving bilateral infiltrates and effusion. ASSESSMENT: 1. Acute hypoxic respiratory failure. Intubated on September 12. 2. Acute encephalopathy-improving. 3. Persistent fevers-also improving. 4. Cardiomyopathy with EF 40%. 5. History of seizure-none during this hospitalization. RECOMMENDATIONS: A 46-year-old man presenting with altered mental status, agitated and combative, with a witnessed seizure prior to presentation at the hospital, and subsequently intubated on September 12. Cardiac cath was unrevealing but he did have an ejection fraction of 40% and areas of apical hypokinesis on his echo. He has had a couple of lumbar punctures to rule out herpes encephalitis and PCR on both was negative with essentially no white cells. We stopped all of his antibiotics-levofloxacin, micafungin, and acyclovir. He continues to have low-grade fevers which I am at a loss to explain, but I wonder if these could be drug fevers since we have essentially looked for all other potential causes. We still do not have a good explanation for encephalopathy except to attribute this to sepsis of unknown etiology. He has had an adequate course of antibiotics regardless. He was doing well on a spontaneous breathing trial today, oxygenation continues to improve, so we went ahead and extubated him. He got one dose of Seroquel prior to extubation because he does seem agitated and somewhat delirious. Continue IV Lasix for diuresis since he does seem volume up still. He is on appropriate DVT prophylaxis and GI prophylaxis is no longer indicated. TIME: Critical care time 45 minutes.
--- NOTE | 2016-09-21 15:39 | NUR ---
Social Work: Multidisciplinary Rounds Pt discussed in am rounds; sw status remains unchanged. Pt in CCU with possible extubation today. RYAN to continue to follow to assess for d/c needs RYAN Navarro Addendum: 09/21/16 at 1634 by DONG JARVIS RUBBER TUBING SPLICER received telephone message from pt's family stating that they have located the patient's biological daughter/NOK. Her name is Hailee Pan
[2016-09-21] MEDS ORDERED: Acetaminophen IV 1,000 MG in IV Premix 1 EACH IV PRN (19:20)
[2016-09-21] MEDS ORDERED: Ketorolac 15 mg/mL Inj IVPUSH PRN (22:30)
[2016-09-22] VITALS (7 sets, daily range): BP systolic 143–166; BP diastolic 73–83; PULSE 62–77; RESP 13–26; O2SAT 94–98
[2016-09-22] MEDS ORDERED: Propofol 10,000 mCg/mL 100 mL Inj ONE (01:20)
[2016-09-22] MEDS: Insulin Human REGular 300 Unit/3 mL Inj SUBQ SCH ×4 (03:34→21:13)
[2016-09-22 03:53] LABS: BASOPHILS % (AUTO) 1.1 % (0-3); EOSINOPHILS % (AUTO) 0.5 % (0-5); MONOCYTES % (AUTO) 11.9 % (4-12); Mean Corpuscular Hemoglobin 30.1 pg (27.0-35.0); Mean Corpuscular Volume 88.6 fL (81-100); NEUTROPHILS % (AUTO) 63.9 % (40-74); Platelet Count 351 bil/L (150-400)
[2016-09-22 04:15] LABS: Magnesium 2.1 mg/dL (1.6-2.6); Phosphorus 3.9 mg/dL (2.5-4.9)
--- NOTE | 2016-09-22 04:53 | NUR ---
Neuro status Early in the shift patient mostly non-verbal, nods head but I am unsure if he understands questions. Patient moving all four extremities but it is sporadic and uncontrolled. Patient turning head back and forth, smacking lips, and moving tongue in and out of his mouth. I am unsure the extent of control he has over these actions. Family is very worried about patient's restlessness, pain, and sleep, state they think patient is in pain. MD updated and at bedside to discuss patient condition and plan with them. 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 He denies pain. He nods yes when asked if he knows where he is but then states he is in his bedroom. Disoriented to date as well. Patient continues to kick legs, swing them over the edge of the bed at times, and try to sit up. Overall patient appears to have much more control over his mobility.
[2016-09-22] MEDS ORDERED: KCl 40 mEq/D5W 500 mL 40 MEQ in IV Premix 1 EACH IV ONE (05:10)
[2016-09-22] MEDS ORDERED: KCl 40 mEq/100 mL Premix (K 3 - 3.7 & Creat < 2) IV ONE ×2 (05:15→23:10)
[2016-09-22] MEDS: Polyethylene Glycol (PEG) 17 Gm Powder PO SCH ×2 (07:18→20:30)
[2016-09-22] MEDS: Insulin GLARgine 100 Unit/mL Syringe SUBQ SCH ×2 (08:15→21:13)
[2016-09-22] MEDS: Furosemide 10 mg/mL 4 mL Inj IVPUSH SCH ×2 (08:15→21:12)
[2016-09-22] MEDS: Heparin 5,000 Unit/mL Inj SUBQ SCH ×3 (08:15→23:54)
--- NOTE | 2016-09-22 10:19 | PROG NOTE ---
[address] [address] PROGRESS NOTE PATIENT: FROYLAN FRAGA : 1970 MR#: [id number] ADMIT: 09/12/2016 JOB ID: [id number] PULMONARY PROGRESS NOTE: DATE: 09/22/2016 SUBJECTIVE: Patient is a 46-year-old man presenting to the hospital with altered mental status and witnessed seizure on September 02, complicated by respiratory failure, encephalopathy, and sepsis. INTERVAL HISTORY: He was extubated yesterday and is doing well from a respiratory standpoint. Continues to be somewhat encephalopathic although answering questions and trying to speak. REVIEW OF SYSTEMS: Could not be obtained because of his mentation. PHYSICAL EXAMINATION: Vital signs reviewed. Temperature has been under 38 in the last 24 hours for the most part. Pulse 72, respirations 26, BP 143/75, sats 95% on 6 L nasal cannula. General: Lying in bed, seems restless, but not agitated. Tries to answer questions, but his speech is almost child-like. Chest has coarse upper airway sounds that are transmitted. LABS: Reviewed. CBC and chemistries within normal limits except for a slightly high sodium, and potassium of 3.1. Procalcitonin yesterday was 0.35. On intake and output, he is net 3.2 L negative yesterday. ASSESSMENT AND RECOMMENDATIONS: 1. Acute hypoxic respiratory failure--intubated on September 12, 2016; extubated September 21, 2016. 2. Acute encephalopathy. 3. Persistent low-grade fevers--fever curve is trending down. 4. Cardiomyopathy with ejection fraction 40%. 5. History of seizure prior to admission, but none during hospitalization. A 46-year-old man presenting with altered mental status and a witnessed seizure before hospitalization, respiratory failure, encephalopathy, and fevers. We really have not identified a source of sepsis despite cultures, extensive imaging, and two lumbar punctures which have ruled out herpes encephalitis. As of now, he is on no antibiotics whatsoever. He was extubated yesterday and seems stable from a respiratory standpoint currently, but still somewhat encephalopathic. While this could be due to ICU delirium, I think it would be prudent to get an MRI of the brain and look for an alternative explanation for the initial triggering event for all of this. He is continuing to get Lasix and is tolerating this well. Creatinine stable, and he does need potassium repletion. He has mild hypernatremia in addition. He is also still getting Keppra 500 b.i.d., and I think if the MRI is normal, we could stop this. He got one dose of Seroquel yesterday morning and has no other additional scheduled doses of this today. I would just watch how he does and make a decision. With regards to his Lasix, I think that it can be stopped or switched to once daily tomorrow. He is on appropriate DVT prophylaxis, and GI prophylaxis is no longer indicated since he is extubated. He is a FULL CODE. Pulmonary services available for issues. Please call for questions if any, but it appears that he is ready to be downgraded from intensive care. CRITICAL CARE TIME: 35 minutes.
--- NOTE | 2016-09-22 13:57 | NUR ---
Evaluation completed. Please go to "Notes" then click on "Assessments and Notes" (bottom left corner of screen). Then select appropriate discipline tab on top of screen.
--- NOTE | 2016-09-22 18:18 | NUR ---
Agitation/mentation Pt alert to self and family but not to time or place. Pt constantly trying to get out of bed and needing to be reoriented over and over. Changed out FMS, because pt pullled it out. Frequent rounding, ice chips and oral care continues. Pt moving independently in bed, SCDs on
[2016-09-23] VITALS (9 sets, daily range): BP systolic 149–167; BP diastolic 71–92; PULSE 64–91; RESP 16–20; O2SAT 94–98
--- NOTE | 2016-09-23 02:47 | NUR ---
pt daughter gave swab to him adn after that they went out not even 10 minutes they come back and give again a swb to the pt ant pt chook so i went there and told her daughte pls stop giving her swab and his head is flat so iput his head up and i went and told the charged nurse and my nurse abu but they told another story to the nurse.
[2016-09-23 04:49] LABS: BASOPHILS % (AUTO) 0.4 % (0-3); EOSINOPHILS % (AUTO) 0.7 % (0-5); MONOCYTES % (AUTO) 10.8 % (4-12); Mean Corpuscular Hemoglobin 30.2 pg (27.0-35.0); Mean Corpuscular Volume 87.8 fL (81-100); NEUTROPHILS % (AUTO) 63.3 % (40-74); Platelet Count 409 bil/L (150-400)
[2016-09-23] MEDS: Insulin Human REGular 300 Unit/3 mL Inj SUBQ SCH ×4 (04:54→22:02)
[2016-09-23 05:11] LABS: Magnesium 2.1 mg/dL (1.6-2.6); Phosphorus 2.8 mg/dL (2.5-4.9)
[2016-09-23] MEDS ORDERED: KCl 40 mEq/100 mL Premix (K 3 - 3.7 & Creat < 2) IV ONE (06:40)
--- NOTE | 2016-09-23 07:21 | NUR ---
Mentation / behavior / K+ Pt remains confused and disoriented. Anxious. Combative at times. He was attempting to pull IV, wire, tubes, etc. MD notified with findings. No new meds at this time. Soft Restraints ordered for safety. Family visiting pt most of the vickey and NOC. They were over stimulating pt. less stimulation discussed with family. K+ level low. Replaced per protocol. No overt complications noted.
--- NOTE | 2016-09-23 07:52 | PCM.PNMED ---
Subjective Date of Service Sep 23, 2016 Subjective Patient is awake and relatively alert since extubation. He continues to be disoriented to specific name of building and year. He denies any headache or discomfort. He is somewhat restless and did have restraints placed last night. No falls. He denies any pain or shortness of breath. No other overnight events noted. Exam Vital Signs Vital Sign - Last Date Time Temp Pulse Resp B/P Pulse Ox O2 Delivery O2 Flow Rate FiO2 09/23/16 05:47 67 09/23/16 03:15 37.1 16 152/85 95 OxyMask 7.00 09/21/16 12:00 40 Intake and Output 09/22/16 09/22/16 09/23/16 Cumulative From/Thru 15:00 23:00 07:00 09/12/16 17:31 - 09/23/16 04:56 Intake Total 412 ml 295 ml 89606 ml Output Total 1500 ml 1550 ml 66074 ml Balance -1088 ml -1255 ml 4647 ml Intake Oral 120 ml 0 ml 600 ml IV Total 292 ml 295 ml 53669 ml Tube Feeding 4749 ml Tube Irrigant 1706 ml Output Urine Total 1100 ml 1350 ml 59222 ml Stool Total 400 ml 200 ml 2275 ml Gastric Drainage Total 1625 ml # Bowel Movements 2 Exam Alert and oriented to person, no distress. Fluent speech Anicteric sclera. Last time snacking today. Lungs are clear with normal rate and effort Heart is regular without murmur gallop or rub Abdomen soft nontender, flat Extremities are free of edema. Skin is free of rash or lesions. Last restless movement of legs today. IVs and Medications Medications Reviewed: Medications were reviewed in detail Lab and Diagnostics Result Diagram: 09/23/16 0430 09/23/16 0430 X-Rays, CTs and MRIs CT BRAIN WITHOUT CONTRAST IMPRESSION: No acute intracranial process. Right parietal scalp swelling/ hematoma. Approved by: Iván Quarles M.D. on 09/12/2016 at 18:29 PROCEDURE: CT CHEST, ABDOMEN AND PELVIS WITH CONTRAST IMPRESSION: Bilateral dependent consolidations suggesting aspiration but superimposed pneumonia cannot be excluded. Recommend clinical correlation. Elsewhere, no acute abnormality. Normal appendix. Colonic diverticulosis without evidence of acute inflammation. Intraluminal gas within the bladder although this could be from catheterization since a Montelongo catheter is present. Please correlate clinically. Approved by: Iván Quarles M.D. on 09/12/2016 at 19:08 X-RAY CHEST ONE VIEW, PORTABLE IMPRESSION: Bilateral perihilar and medial basilar patchy opacities likely aspiration/ atelectasis although cannot exclude pneumonia. Please correlate clinically. Endotracheal tube with the tip projecting approximately 5 cm above the shelbi. Approved by: Iván Quarles M.D. on 09/12/2016 at 20:[address] 09/17/2016 IMPRESSION: 1. New crazy paving pattern within the upper and midlungs when compared with prior CT dated 09/12/16. Given the acute change, this most likely represents ARDS or acute interstitial pneumonia. 2. Persistent basilar consolidation with air bronchograms consistent with bilateral pneumonia. 3. New, small bilateral low density pleural effusions. No findings to suggest empyema or pulmonary abscess. 4. New mediastinal adenopathy. Given the acute change, this likely represents infectious or reactive adenopathy. 5. New fat stranding along the right abdominal wall. The significance of this finding is unclear. This may represent focal edema if the patient was dependent in this region. Alternatively, hematoma could have this appearance. Dictated by: Jessie Gates M.D. on 09/17/2016 at 14:[address] 09/17/2016 IMPRESSION: 1. Bilateral paranasal sinus mucosal thickening consistent with sinusitis. 2. Fluid within mastoids. Clinical correlation for mastoiditis. 3. Leftward nasal septum deviation. Dictated by: Gera Monroy M.D. on 09/17/2016 at 14:22 Venous duplex ultrasound 09/18/2016 IMPRESSION: 1. No evidence of deep venous thrombosis in the right or left lower extremity. Dictated by: Alexey Lechuga M.D. on 09/18/2016 at 10:03 Chest x-ray 09/18/2016 IMPRESSION: 1. Persistent but slightly decreased pulmonary edema with medial bibasilar consolidation, atelectasis, or consolidation. 2. Small bilateral pleural effusions. Dictated by: Alexey Lechuga M.D. on 09/18/2016 at 9:51 Chest x-ray 09/19/2016 IMPRESSION: Mildly improved bibasilar pulmonary opacities left greater than right with trace pleural effusions. Dictated by: Henrry Dunbar M.D. on 09/19/2016 at 9:56 Chest x-ray 09/20/2016 IMPRESSION: 1. Improving bibasilar pulmonary opacities. 2. ET tube with tip 8.5 CM above the shelbi. Consider advancement for optimal function. Dictated by: Henrry Dunbar M.D. on 09/20/2016 at 7:52 Cardiac Echo Impressions Echocardiogram performed 09/13/2016 Ejection fraction 40%, apical hypokinesis. Assessment & Plan #. Acute encephalopathy (possible anoxic encephalopathy), present on admission, active and continuing to improve. Etiology remains elusive, patient had blood glucose 657 on presentation, however unclear if this was primary cause of encephalopathy, or if reactive to underlying infection or other disease process. Lumbar puncture, EEG, brain, chest, sinus, abdomen, pelvis CTs remained otherwise unremarkable for definitive cause. -CTs reviewed independently in their entirety. Will stop Keppra today. Patient has no evidence of infection after being off from antivirals antimicrobials for the last several days #. Acute respiratory failure with hypoxia, not present on admission, resolved. The patient is off oxygen, we will stop diuresis at this point. #. Acute drug reaction (rash and fever), not present on admission, resolved. No further clinical evidence. #. Acute aspiration pneumonia, present on admission, resolved. Respiratory status is normal Acute on Chronic systolic heart failure, present on admission resolved. Echocardiogram showed left ventricular function of 40% EF with apical hypokinesis Possibly stress-induced Troponins were trended and have normalized Cardiac catheterization showed no stenosis or occlusions to coronary arteries Discontinue furosemide at this point Diabetes mellitus type II, present on admission, active and controlled. A1c 11.3 on admission, fasting a.m. glucose remains above 200 Receiving insulin high-dose correctional scale. Start Long acting insulin -10units Glargine NOW. 10 units qHS with titration to AM fasting blood glucose <150. No change to insulin dosing at this point. Severe sepsis, POA and resolved. Reviewed the case and patient did have SIRS criteria as well as shock. Source of infection being aspiration pneumonia earlier this hospital course. The patient was treated with antibiotics and pressor support as well. GI prophylaxis famotidine Pain management, sedation with propofol, fentanyl DVT prophylaxis subcutaneous heparin Remains full code GI Prophylaxis: H2 kelly VTE Prophylaxis: Sub-Q Heparin (Unfractionated), SCDs VTE Mechanical Devices: Intermittant Pneumatic CD Resuscitation Status: CPR: Attempt Resuscitation Luis Stuart MD Sep 23, 2016 07:52
[2016-09-23] MEDS: Insulin GLARgine 100 Unit/mL Syringe SUBQ SCH ×2 (07:53→22:03)
[2016-09-23] MEDS: Heparin 5,000 Unit/mL Inj SUBQ SCH ×2 (07:54→15:56)
[2016-09-23] MEDS: Polyethylene Glycol (PEG) 17 Gm Powder PO SCH ×2 (07:55→20:23)
--- NOTE | 2016-09-23 11:56 | PROG NOTE ---
[address] [address] PROGRESS NOTE PATIENT: FROYLAN FRAGA : 1970 MR#: [id number] ADMIT: 09/12/2016 JOB ID: [id number] DATE: 09/23/2016 PULMONARY PROGRESS NOTE: IDENTIFICATION: The patient is a 46-year-old man presenting with altered mental status and witnessed seizure on September 12 complicated by respiratory failure, encephalopathy and sepsis. INTERVAL HISTORY: He was extubated two days ago and is doing well from a respiratory standpoint, on minimum oxygen. REVIEW OF SYSTEMS: He denies any chest pain, fevers, chills, cough, or shortness of breath. PHYSICAL EXAMINATION: Vital signs reviewed. Afebrile. Pulse 71, respirations 20, BP 150/85, sats 94% on 6 L nasal cannula. General, he is alert, eyes open, oriented, but somewhat child-like in his behavior and responses as similar to yesterday, but slightly improved. Chest clear to auscultation. LABORATORIES: Reviewed. ASSESSMENT AND RECOMMENDATIONS: 1. Acute encephalopathy-improved slightly, but still does not appear baseline. 2. Acute hypoxic respiratory failure intubated September 12 until September 21. 3. Low-grade fevers-resolved. 4. Cardiomyopathy with ejection fraction 40%. 5. History of seizure prior to admission, but none since. A 46-year-old man presenting with altered mental status and a witnessed seizure by medics prior to hospitalization with prolonged Intensive Care Unit stay with respiratory failure, encephalopathy, and fevers. Extensive workup has revealed no source of sepsis, including two lumbar punctures which were negative for herpes encephalitis. Mental status currently while significantly improved, does not appear back to baseline. We still do not have a good explanation for this. He is still somewhat restless, and I do not think he can hold still enough to have an MRI of the brain. Once his mentation is a little bit more stable, I do think we should get a brain MRI to evaluate for other causes. Lasix was stopped because his ins and outs and weight seem pretty close to his baseline. He was Keppra which was also stopped because of absence of any seizure activity. With regards to antibiotics, all of these were stopped as well since there is no current indication or sign of infection. He is on some oxygen, and I would like to have him use an incentive spirometer regularly and work with physical therapy. He is on appropriate deep VT prophylaxis. He is a FULL CODE. His family was updated at the bedside. Pulmonary service will sign off at this point, Dr. Radford takes over tomorrow so please contact him for any additional issues.
--- NOTE | 2016-09-23 13:45 | NUR ---
P: Confusion/agitation I: Pt still restless but less now than earlier. Seroquel ordered and seems to help. 5L/NC with sats stable. Swallow eval done and pt can have nectar thick liquid and ice chips. Turned Q 2 hours. although pt turns himself in bed. Sitter at bedside. VSS. Status changed to [facility] no tele. NSR. Taking ice chips without difficulty. FMS with liquid brown stool. Montelongo patent with cynthia urine. Lasix IV dc'd. Pt remains confused and needs frequent re-orientation. E: Stable S: Restraints on for pt safety. Sitter and family at bedside. Pt does try to pull out his central line when hands are free. Frequent rounding. Addendum: 09/23/16 at 1350 by MYRNA LESTER RN Potassium 40 meqs infused and re-check K+ 4.4
--- NOTE | 2016-09-23 16:39 | NUR ---
Social Work- Multidisciplinary Rounds Pt discussed in rounds. Pt's soft restraints are D/C. Pt continues with sitter. Pt to have swallow eval. Pt's DPOA is daughter Hailee Pan. [facility] unable to see pt today due to high census. SW will continue to follow. Dania Mccarty, JOURNEYMAN CARPENTER
--- NOTE | 2016-09-23 18:21 | NUR ---
[facility] to [facility] [place] Pt. was transferred from [facility] to [facility] at 1708. On arrival, he was alert, confused and delayed, and impulsive at times. Pt. denied pain. Family at bedside.
--- NOTE | 2016-09-23 23:06 | NUR ---
Anxious/BG/Pain/O2 Pt alert to self. in 2 point wrist restraints. Seen very fidgety in bed. bitting fingernails. attempting to pull out franks catheter. Denies pain then winces with movement. asked about pain again, pt states to have 8/10 in the back. Friend at bedside stated pt had a back injury 1mo ago, has an open L&I claim. Pt continuously takes off his NC. O2 checked on RA, pt sating 89-93%. Will continue to monitor and watch O2 levels. IS provided and reminded pt how to use it-was extubated on 09/21 per 09/23 1156 note. Pts BG high this evening. Pt had several ice creams 2 hrs prior to check. Note sent to MD for a calming agent and notifying of HS BG level. Bed in low position, 3 rails up, call light in reach. will continue to monitor. Addendum: 09/24/16 at 0234 by BLANCA KHAN RN Pt continuous to be anxious, fidgety and pulling on franks catheter, all the while in wrist restraints. White, soft mitt placed over L hand. Pt stops mid-point when staff walks in room. Looks calm while staff is present. Denies being in pain. Repositioning q2 hrs. Addendum: 09/24/16 at 0436 by BLANCA KHAN RN IV haldol given per 1x order. Pt appears slightly more calm than prior to administration. still pulling on restraints and banging on the side rails. Addendum: 09/24/16 at 0559 by BLANCA KHAN RN pt slept for 40 min. now awake and thrashing in bed.
[2016-09-24] MEDS: Heparin 5,000 Unit/mL Inj SUBQ SCH ×3 (00:46→17:15)
[2016-09-24 00:56] VITALS: BP 159/83; PULSE 78; RESP 20; O2SAT 93
[2016-09-24] MEDS ORDERED: Haloperidol 5 mg/mL Inj IVPUSH ONE (03:00)
--- NOTE | 2016-09-24 06:02 | NUR ---
blood in urine/Central line Urine was cynthia and cloudy now blood tinged. Pt tried to d/c it by pulling at it and kicking around with his feet. Pt self d/c the 3Lumen IJ. No bleeding noted. Line came out intact. Occlusive dressing applied. notified. Verbal order recd for a peripheral IV.
[2016-09-24 06:21] VITALS: BP 160/74; PULSE 84; RESP 20; O2SAT 94
[2016-09-24] MEDS: Insulin Human REGular 300 Unit/3 mL Inj SUBQ SCH ×4 (07:30→23:05)
[2016-09-24] MEDS: Polyethylene Glycol (PEG) 17 Gm Powder PO SCH ×2 (08:01→20:38)
[2016-09-24] MEDS: Insulin GLARgine 100 Unit/mL Syringe SUBQ SCH ×2 (08:02→23:07)
--- NOTE | 2016-09-24 09:25 | NUR ---
FMS PT at bedside to work with pt. Pt sitting at bedside, appears FMS has become dislodged. Pt stood 1-2 per assist at bedside. FMS no longer in place. Skin on buttock, macerated and red. PT cleaned and Familia lotion applied. Call light in place, will continue to monitor Addendum: 09/24/16 at 1207 by GRECIA SORTO RN Per dusty GARIBAYay to leave FMS out at this time. Frequent rounding in place, will continue to monitor.
--- NOTE | 2016-09-24 11:35 | NUR ---
Restraints Pt alert and oriented to self and , cooperative with care, trying to follow directions given by staff. Friend at bedside visiting with pt. Pt is much more calm at this time. Restraints discontinued at this time. 1:[address] Call light in reach, will continue to monitor.
[2016-09-24 11:37] VITALS: PULSE 8; PULSE 83; RESP 16; O2SAT 92
[2016-09-24 12:08] LABS: BASOPHILS % (AUTO) 0.6 % (0-3); EOSINOPHILS % (AUTO) 0.4 % (0-5); MONOCYTES % (AUTO) 7.5 % (4-12); Mean Corpuscular Hemoglobin 30.5 pg (27.0-35.0); Mean Corpuscular Volume 88.2 fL (81-100); Platelet Count 426 bil/L (150-400)
[2016-09-24 12:36] LABS: Magnesium 2.4 mg/dL (1.6-2.6)
[2016-09-24 13:51] VITALS: BP 164/93; PULSE 78; RESP 20; O2SAT 95
--- NOTE | 2016-09-24 14:03 | NUR ---
Inpatient Wound Nurse Patient seen to evaluate pressure ulcer identified last week. Suspected deep tissue injury observed on medial L buttock, 0.5 cm L x 1 cm W dark purple area, non-blanchable in center, with linear blanchable erythemic halo, is resolving. Patient is able to reposition with minimal assistance or independently, encouraged to stay off his bottom and reposition frequently.
--- NOTE | 2016-09-24 15:42 | NUR ---
NUTRITION FOLLOW-UP: ASSESS: 46 YO male admitted to CCU with AMS, seizure activity, and pneumonia. Pt was extubated on 09/22. ST advanced diet on 09/23 and pt has been eating 75-100% of meals today. PMHX: HTN, type 2 diabetes, back pain, polysubstance abuse, smoking. LABS: Reviewed. Na 149, Glu 202, Alb 3.6. MEDS: Reviewed. GI: FMS removed today. 125 ML stool noted. SKIN: Numerous abrasions L scapula. Suspected deep tissue injury on medial L buttock. Wound Care following. WT: 86.7 kg. Admit weight: 93.1 kg. DIET: Pureed, Sorrel Thick Liquids, Magic cup all trays. PO 75-100%. ESTIMATED NEEDS: Calories: 1077-1261 kcal/day (25-30 kcal/kg BW) Protein: 110-140 g/day (1.2-1.5 g/kg BW) Fluids: ~2300 ml/day (25 ml/kg BW) NUTRITION DIAGNOSIS: 1) Inadequate oral intake related to decreased ability to consume sufficient energy as evidenced by current NPO status - IMPROVING, PT EATING 75-100% of meals. 2) Altered nutrition related lab values related to endocrine dysfunction as evidence by A1C of 10.4 and elevated BG levels - PERSISTS. 3.) Chewing /swallowing difficulties related to cognitive impairment as evidenced by current need for mechanically altered diet texture, ST following. NUTRITION INTERVENTION: 1.) Continue current diet at this time. 2.) Consider diabetic education once/if mentation/cognition improves. 3.) Continue to advance diet as tolerated per ST recommendations. MONITOR/EVALUATE: Po intake, diet advance / tolerance, GI, labs, nutrition status. Follow per high nutrition risk guidelines.
--- NOTE | 2016-09-24 17:00 | DRSVH ---
PROCEDURE: X-RAY CHEST ONE VIEW, PORTABLE ([id number]) INDICATIONS: Follow up for Pneumonia TECHNIQUE: One view of the chest was acquired. COMPARISON: [facility], [place], XR CHEST 1VW (PORTABLE), 09/21/2016, 4:53. FINDINGS: Surgical changes and devices: None. Lungs and pleura: No pleural effusions or pneumothorax. Lungs are clear aside from minimal airspace opacity involving the medial left lung base decreased from prior exam.. Mediastinum: Mediastinal contours appear normal. Heart size is normal. Bones and chest wall: No suspicious bony lesions. Overlying soft tissues appear unremarkable. IMPRESSION: Resolving medial left basilar atelectasis versus pneumonia. Dictated by: Ed Garcia RRA Interpreted: Joshua Garber MD on 09/24/2016 at 16:07 Approved by: Joshua Garber M.D. on 09/24/2016 at 16:58
--- NOTE | 2016-09-24 18:05 | NUR ---
Pain Pt reports back pain, PO Tylenol and K pad administered, slight decrease of pain level. Pt has be come increasingly restless. IV Ketorolac given, Will continue to monitor.
[2016-09-24 20:45] VITALS: PULSE 73; RESP 20; O2SAT 91
[2016-09-24 20:47] VITALS: BP 159/79; PULSE 70; RESP 18; O2SAT 93
--- NOTE | 2016-09-25 00:37 | PCM.PNMED ---
Subjective Date of Service Sep 24, 2016 Subjective The patient is less agitated today. He is still very fidgety. He has no idea where he is. He is oriented to person only. He has no specific complaints. Exam Vital Signs Vital Sign - Last Date Time Temp Pulse Resp B/P Pulse Ox O2 Delivery O2 Flow Rate FiO2 09/24/16 20:47 37.0 70 18 159/79 93 Room Air 09/23/16 20:07 5.00 09/21/16 12:00 40 Intake and Output 09/24/16 09/24/16 09/25/16 Cumulative From/Thru 15:00 23:00 07:00 09/12/16 17:31 - 09/24/16 18:12 Intake Total 1620 ml 40291 ml Output Total 550 ml 17841 ml Balance 1070 ml 4622 ml Intake Oral 1620 ml 3180 ml IV Total 83109 ml Tube Feeding 4749 ml Tube Irrigant 1706 ml Output Urine Total 550 ml 06519 ml Stool Total 2600 ml Gastric Drainage Total 1625 ml # Bowel Movements 2 Exam General: Patient is very fidgety however he is pleasant and cooperative today. HEENT: Head is atraumatic and normocephalic. Eyes: Pupils are equally round and reactive to light and accommodation. Extraocular muscles are intact. Sclera are white, anicteric. Subconjunctival mucosa is pink. Ears and nose are unremarkable. Oropharynx: There are no mucosal lesions, there is no thrush , there is no pharyngitis. Neck: Is supple, there are no nodes, or masses or tenderness. Chest: Is clear to auscultation and percussion. There are no rales, rhonchi, wheezes or rubs. Heart: Rate, rhythm is regular. There is no murmur, rub or gallop. Abdomen: Good bowel sounds are present. Abdomen is soft, nontender, no organomegaly or masses were appreciated. Extremities: Are symmetrical and well perfused. There is no edema, there is no cellulitis, no rash. Neurologic: There are no new focal neurological deficits. Cranial nerves II through XII are intact. There are no sensory or motor deficits. Patient is oriented to person only. Psychiatric: Patients mood is calm and shows no sign of agitation. Patient is oriented to person only. He is very fidgety today. However, apparently much less agitated than yesterday. Genital: Deferred Rectal: Deferred Lab and Diagnostics Result Diagram: 09/24/16 1200 09/24/16 1200 X-Rays, CTs and MRIs CT BRAIN WITHOUT CONTRAST IMPRESSION: No acute intracranial process. Right parietal scalp swelling/ hematoma. Approved by: Iván Quarles M.D. on 09/12/2016 at 18:29 PROCEDURE: CT CHEST, ABDOMEN AND PELVIS WITH CONTRAST IMPRESSION: Bilateral dependent consolidations suggesting aspiration but superimposed pneumonia cannot be excluded. Recommend clinical correlation. Elsewhere, no acute abnormality. Normal appendix. Colonic diverticulosis without evidence of acute inflammation. Intraluminal gas within the bladder although this could be from catheterization since a Montelongo catheter is present. Please correlate clinically. Approved by: Iván Quarles M.D. on 09/12/2016 at 19:08 X-RAY CHEST ONE VIEW, PORTABLE IMPRESSION: Bilateral perihilar and medial basilar patchy opacities likely aspiration/ atelectasis although cannot exclude pneumonia. Please correlate clinically. Endotracheal tube with the tip projecting approximately 5 cm above the shelbi. Approved by: Iván Quarles M.D. on 09/12/2016 at 20:[address] 09/17/2016 IMPRESSION: 1. New crazy paving pattern within the upper and midlungs when compared with prior CT dated 09/12/16. Given the acute change, this most likely represents ARDS or acute interstitial pneumonia. 2. Persistent basilar consolidation with air bronchograms consistent with bilateral pneumonia. 3. New, small bilateral low density pleural effusions. No findings to suggest empyema or pulmonary abscess. 4. New mediastinal adenopathy. Given the acute change, this likely represents infectious or reactive adenopathy. 5. New fat stranding along the right abdominal wall. The significance of this finding is unclear. This may represent focal edema if the patient was dependent in this region. Alternatively, hematoma could have this appearance. Dictated by: Jessie Gates M.D. on 09/17/2016 at 14:[address] 09/17/2016 IMPRESSION: 1. Bilateral paranasal sinus mucosal thickening consistent with sinusitis. 2. Fluid within mastoids. Clinical correlation for mastoiditis. 3. Leftward nasal septum deviation. Dictated by: Gera Monroy M.D. on 09/17/2016 at 14:22 Venous duplex ultrasound 09/18/2016 IMPRESSION: 1. No evidence of deep venous thrombosis in the right or left lower extremity. Dictated by: Alexey Lechuga M.D. on 09/18/2016 at 10:03 Chest x-ray 09/18/2016 IMPRESSION: 1. Persistent but slightly decreased pulmonary edema with medial bibasilar consolidation, atelectasis, or consolidation. 2. Small bilateral pleural effusions. Dictated by: Alexey Lechuga M.D. on 09/18/2016 at 9:51 Chest x-ray 09/19/2016 IMPRESSION: Mildly improved bibasilar pulmonary opacities left greater than right with trace pleural effusions. Dictated by: Henrry Dunbar M.D. on 09/19/2016 at 9:56 Chest x-ray 09/20/2016 IMPRESSION: 1. Improving bibasilar pulmonary opacities. 2. ET tube with tip 8.5 CM above the shelbi. Consider advancement for optimal function. Dictated by: Henrry Dunbar M.D. on 09/20/2016 at 7:52 Cardiac Echo Impressions Echocardiogram performed 09/13/2016 Ejection fraction 40%, apical hypokinesis. Assessment & Plan Patient George Pan is a 46-year-old man with past medical history remarkable for hypertension, chronic back pain and diabetes who presents to [facility] with altered mental status and reported seizure activity in route by EMS. The patient was seen in the ED and was intubated and sedated. The history was obtained from the patient's 18-year-old son as well as common law of 20 years and mother. The son states that the patient was sleeping most of the day when he went to check on him the patient was lying face down with foamy sputum coming from his mouth and unresponsive. The son called EMS and proceeded to perform CPR until paramedics arrived. Per ED report of EMS activity paramedics found the patient initially agitated and combative and was administered 500 mg of ketamine IM. The patient was found to have an elevated blood glucose and the patient was given 2000 mL of IV fluids with a heart rate in the 140s. In route the patient is described as having a generalized seizure 10 minutes LOCKSTITCH [employer] and was given 5 mg of Versed which halted the seizure. Per the the patient has been complaining of 4 days of headache made worse with coughing. For the headache today the left the patient a topiramate prescription bottle however after pill count inspection the patient likely took 1 or none. The mother gave the patient a Vicodin pill for the headache. 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 The patient reportedly has diagnoses of diabetes and hypertension however the patient is noncompliant with prescription medications and has never taken insulin. The patient has reportedly been urinating extremely frequently and large amounts over the last several days to weeks. Reportedly having to get up multiple times in the middle of the night to urinate. The patient was evaluated at [facility] emergency room and was subsequently admitted to the hospitalist service for further evaluation and treatment. #. Acute encephalopathy (possible anoxic encephalopathy), present on admission, active and continuing to improve. Etiology remains elusive, patient had blood glucose 657 on presentation, however unclear if this was primary cause of encephalopathy, or if reactive to underlying infection or other disease process. Lumbar puncture, EEG, brain, chest, sinus, abdomen, pelvis CTs remained otherwise unremarkable for definitive cause. -CTs reviewed independently in their entirety. Will stop Keppra today. Patient has no evidence of infection after being off from antivirals antimicrobials for the last several days - We will attempt to hold all narcotic agents and control his pain with Tylenol and/or Toradol. #. Acute respiratory failure with hypoxia, not present on admission, resolved. The patient is off oxygen, we will stop diuresis at this point. #. Acute drug reaction (rash and fever), not present on admission, resolved. No further clinical evidence. #. Acute aspiration pneumonia, present on admission, resolved. Respiratory status is normal Acute on Chronic systolic heart failure, present on admission resolved. Echocardiogram showed left ventricular function of 40% EF with apical hypokinesis Possibly stress-induced Troponins were trended and have normalized Cardiac catheterization showed no stenosis or occlusions to coronary arteries Discontinue furosemide at this point Diabetes mellitus type II, present on admission, active and controlled. A1c 11.3 on admission, fasting a.m. glucose remains above 200 Receiving insulin high-dose correctional scale. Start Long acting insulin -10units Glargine NOW. 10 units qHS with titration to AM fasting blood glucose <150. No change to insulin dosing at this point. Severe sepsis, POA and resolved. Reviewed the case and patient did have SIRS criteria as well as shock. Source of infection being aspiration pneumonia earlier this hospital course. The patient was treated with antibiotics and pressor support as well. GI prophylaxis famotidine Pain management, sedation with propofol, fentanyl DVT prophylaxis subcutaneous heparin Remains full code Disposition: We will begin to discuss with social media developer and case management plans for long-term care. Pain Evaluation: Adequate Pain Control GI Prophylaxis: H2 kelly VTE Prophylaxis: Sub-Q Heparin (Unfractionated), SCDs VTE Mechanical Devices: Intermittant Pneumatic CD Resuscitation Status: CPR: Attempt Resuscitation SosaEsdras MD Sep 25, 2016 00:37
[2016-09-25] MEDS: Heparin 5,000 Unit/mL Inj SUBQ SCH ×3 (00:48→15:59)
[2016-09-25 05:36] VITALS: BP 154/81; PULSE 71; RESP 20; O2SAT 93
--- NOTE | 2016-09-25 06:29 | NUR ---
Mentation Remains alert and confused. Very impulsive requiring 1:1 for safety. Gait unsteady and poor ability to follow directions. Unable to orient to call light use or events leading up to hospital stay. Continues to request to go to his car outside so he can drive to the store for cigarettes. Frequent reorientation and 1:1 for safety.
[2016-09-25] MEDS: Insulin Human REGular 300 Unit/3 mL Inj SUBQ SCH ×4 (07:30→21:36)
[2016-09-25] MEDS: Polyethylene Glycol (PEG) 17 Gm Powder PO SCH ×2 (07:40→20:30)
[2016-09-25] MEDS: Insulin GLARgine 100 Unit/mL Syringe SUBQ SCH ×2 (08:16→21:21)
--- NOTE | 2016-09-25 10:40 | NUR ---
Behavior, mentation, and Montelongo catheter Pt. continues to be impulsive and disoriented. He was able to answer some questions correctly sometimes. He is very fidgety. Montelongo catheter was removed at [address] Spooner. King at bedside. Will reassess pt. function. Addendum: 09/25/16 at 1313 by MARIO MEADE RN Pt. voided on BSC after lunch.
[2016-09-25 11:42] VITALS: PULSE 64; RESP 16; O2SAT 92
[2016-09-25 13:15] VITALS: BP 157/83; PULSE 70; RESP 18; O2SAT 95
[2016-09-25 19:35] VITALS: PULSE 73; RESP 16; O2SAT 93
[2016-09-25 19:58] VITALS: BP 161/89; PULSE 68; RESP 20; O2SAT 93
--- NOTE | 2016-09-25 23:55 | PCM.PNMED ---
Subjective Date of Service Sep 25, 2016 Subjective The patient is much more alert and oriented today. His friend of 30 some years has noticed a considerable difference since yesterday. The patient is able to feed himself now. He is aware that he is in a hospital. He could not name the exact name of the hospital but is much more aware of his surroundings and place and time he knew was 2016 which he did not know yesterday. Exam Vital Signs Vital Sign - Last Date Time Temp Pulse Resp B/P Pulse Ox O2 Delivery O2 Flow Rate FiO2 09/25/16 19:58 36.8 68 20 161/89 93 Room Air 09/23/16 20:07 5.00 09/21/16 12:00 40 Intake and Output 09/24/16 09/24/16 09/25/16 Cumulative From/Thru 15:00 23:00 07:00 09/12/16 17:31 - 09/25/16 05:41 Intake Total 1620 ml 1360 ml 40239 ml Output Total 550 ml 475 ml 74453 ml Balance 1070 ml 885 ml 5507 ml Intake Oral 1620 ml 1360 ml 4540 ml IV Total 0 ml 88992 ml Tube Feeding 4749 ml Tube Irrigant 1706 ml Output Urine Total 550 ml 475 ml 99349 ml Stool Total 2600 ml Gastric Drainage Total 1625 ml # Bowel Movements 3 5 Exam General: Patient is much more alert and oriented today. He is much more oriented to time and place then yesterday. HEENT: Head is atraumatic and normocephalic. Eyes: Pupils are equally round and reactive to light and accommodation. Extraocular muscles are intact. Sclera are white, anicteric. Subconjunctival mucosa is pink. Ears and nose are unremarkable. Oropharynx: There are no mucosal lesions, there is no thrush , there is no pharyngitis. Neck: Is supple, there are no nodes, or masses or tenderness. Chest: Is clear to auscultation and percussion. There are no rales, rhonchi, wheezes or rubs. Heart: Rate, rhythm is regular. There is no murmur, rub or gallop. Abdomen: Good bowel sounds are present. Abdomen is soft, nontender, no organomegaly or masses were appreciated. Extremities: Are symmetrical and well perfused. There is no edema, there is no cellulitis, no rash. Neurologic: There are no new focal neurological deficits. Cranial nerves II through XII are intact. There are no sensory or motor deficits. Patient is oriented to person only. Psychiatric: Patients mood is calm and shows no sign of agitation. Patient is markedly improved since yesterday with increased orientation to time and place. He is much calmer. Genital: Deferred Rectal: Deferred Lab and Diagnostics Result Diagram: 09/24/16 1200 09/24/16 1200 Microbiology Name: FROYLAN PAN Age/Sex: 46/M Attend Dr: Teri Horta MD Acct: [id number] Unit: [id number] Status: ADM IN Location: [facility] [id number] Re09/12/16 Disch: Specimen: [id number] Collected: 09/15/160 Status: COMP Req#: [id number] Received: 09/15/16-1233 Source: [facility] Sp Desc : Subm Dr: Sandeep Radford MD Ordered: GRAM SPT REFLEX, SPUTUM CULTURE Comments: Collected by Nurse/Unit? Y/N N Comment: sputum for gram Jose Eduardo mckeon Procedure Result Verified Site Microbiology SHANT CULT SPUTUM GS Final 09/15/16-1248 SPT GRAM STAIN MODERATE POLYS FEW EPITHELIAL CELLS NO ORGANISMS SEEN This Spec is of good Quality and acceptable for Cult RESPIRATORY CULTURE Final 09/17/16-1004 Organism 1 KLEBSIELLA OXYTOCA COLONY COUNT/QUANTITY SCANT GROWTH 1. KLEBSIELLA OXYTOCA M.I.C Interp --------- ------ * AMIKACIN <=2 S * AMPICILLIN R * AMPICILLIN/SULBACTAM <=2 S * CEFEPIME <=1 S * CEFOXITIN <=4 S * CEFTRIAXONE <=1 S * CIPROFLOXACIN <=0.25 S * ERTAPENEM <=0.5 S * GENTAMICIN <=1 S * MEROPENEM <=0.25 S * TOBRAMYCIN <=1 S * TRIMETHOPRIM/SULFAMETHOXAZOLE <=20 S X-Rays, CTs and MRIs CT BRAIN WITHOUT CONTRAST IMPRESSION: No acute intracranial process. Right parietal scalp swelling/ hematoma. Approved by: Iván Quarles M.D. on 09/12/2016 at 18:29 PROCEDURE: CT CHEST, ABDOMEN AND PELVIS WITH CONTRAST IMPRESSION: Bilateral dependent consolidations suggesting aspiration but superimposed pneumonia cannot be excluded. Recommend clinical correlation. Elsewhere, no acute abnormality. Normal appendix. Colonic diverticulosis without evidence of acute inflammation. Intraluminal gas within the bladder although this could be from catheterization since a [place] catheter is present. Please correlate clinically. Approved by: Iván Quarles M.D. on 09/12/2016 at 19:08 X-RAY CHEST ONE VIEW, PORTABLE IMPRESSION: Bilateral perihilar and medial basilar patchy opacities likely aspiration/ atelectasis although cannot exclude pneumonia. Please correlate clinically. Endotracheal tube with the tip projecting approximately 5 cm above the shelbi. Approved by: Iván Quarles M.D. on 09/12/2016 at 20:[address] 09/17/2016 IMPRESSION: 1. New crazy paving pattern within the upper and midlungs when compared with prior CT dated 09/12/16. Given the acute change, this most likely represents ARDS or acute interstitial pneumonia. 2. Persistent basilar consolidation with air bronchograms consistent with bilateral pneumonia. 3. New, small bilateral low density pleural effusions. No findings to suggest empyema or pulmonary abscess. 4. New mediastinal adenopathy. Given the acute change, this likely represents infectious or reactive adenopathy. 5. New fat stranding along the right abdominal wall. The significance of this finding is unclear. This may represent focal edema if the patient was dependent in this region. Alternatively, hematoma could have this appearance. Dictated by: Jessie Gates M.D. on 09/17/2016 at 14:[address] 09/17/2016 IMPRESSION: 1. Bilateral paranasal sinus mucosal thickening consistent with sinusitis. 2. Fluid within mastoids. Clinical correlation for mastoiditis. 3. Leftward nasal septum deviation. Dictated by: Gera Monroy M.D. on 09/17/2016 at 14:22 Venous duplex ultrasound 09/18/2016 IMPRESSION: 1. No evidence of deep venous thrombosis in the right or left lower extremity. Dictated by: Alexey Lechuga M.D. on 09/18/2016 at 10:03 Chest x-ray 09/18/2016 IMPRESSION: 1. Persistent but slightly decreased pulmonary edema with medial bibasilar consolidation, atelectasis, or consolidation. 2. Small bilateral pleural effusions. Dictated by: Alexey Lechuga M.D. on 09/18/2016 at 9:51 Chest x-ray 09/19/2016 IMPRESSION: Mildly improved bibasilar pulmonary opacities left greater than right with trace pleural effusions. Dictated by: Henrry Dunbar M.D. on 09/19/2016 at 9:56 Chest x-ray 09/20/2016 IMPRESSION: 1. Improving bibasilar pulmonary opacities. 2. ET tube with tip 8.5 CM above the shelbi. Consider advancement for optimal function. Dictated by: Henrry Dunbar M.D. on 09/20/2016 at 7:52 Cardiac Echo Impressions Echocardiogram performed 09/13/2016 Ejection fraction 40%, apical hypokinesis. Assessment & Plan As per the history and physical note "Patient Froylan Pan is a 46-year-old man with past medical history remarkable for hypertension, chronic back pain and diabetes who presents to [facility] with altered mental status and reported seizure activity in route by EMS. The patient was seen in the ED and was intubated and sedated. The history was obtained from the patient's 18-year- old son as well as common law of 20 years and mother. The son states that the patient was sleeping most of the day when he went to check on him the patient was lying face down with foamy sputum coming from his mouth and unresponsive. The son called EMS and proceeded to perform CPR until paramedics arrived. Per ED report of EMS activity paramedics found the patient initially agitated and combative and was administered 500 mg of ketamine IM. The patient was found to have an elevated blood glucose and the patient was given 2000 mL of IV fluids with a heart rate in the 140s. 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 Per the the patient has been complaining of 4 days of headache made worse with coughing. For the headache today the left the patient a topiramate prescription bottle however after pill count inspection the patient likely took 1 or none. The mother gave the patient a Vicodin pill for the headache. 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 The patient reportedly has diagnoses of diabetes and hypertension however the patient is noncompliant with prescription medications and has never taken insulin. The patient has reportedly been urinating extremely frequently and large amounts over the last several days to weeks. Reportedly having to get up multiple times in the middle of the night to urinate." The patient was evaluated at [facility] emergency room and was subsequently admitted to the hospitalist service for further evaluation and treatment. #. Acute encephalopathy (possible anoxic encephalopathy), present on admission, active and continuing to improve. Etiology remains elusive, however suspect hyper-asthmatic coma state as patient had blood glucose 657 on presentation, however unclear if this was primary cause of encephalopathy, or if reactive to underlying infection or other disease process. The patient may have suffered anoxic encephalopathy. However , he is improving rapidly over the last 24 hours. Lumbar puncture, EEG, brain, chest, sinus, abdomen, pelvis CTs remained otherwise unremarkable for definitive cause. -CTs reviewed independently in their entirety. Will stop Keppra today. Patient has no evidence of infection after being off from antivirals antimicrobials for the last several days - We will attempt to hold all narcotic agents and control his pain with Tylenol and/or Toradol. This appears to be helping patient's mental status. #. Acute respiratory failure with hypoxia, not present on admission, resolved. The patient is off oxygen, we will stop diuresis at this point. #. Acute drug reaction (rash and fever), not present on admission, resolved. No further clinical evidence. #. Acute aspiration pneumonia, present on admission, resolved. Respiratory status is normal Acute on Chronic systolic heart failure, present on admission resolved. Echocardiogram showed left ventricular function of 40% EF with apical hypokinesis Possibly stress-induced Troponins were trended and have normalized Cardiac catheterization showed no stenosis or occlusions to coronary arteries Discontinue furosemide at this point Diabetes mellitus type II, present on admission, active and controlled. A1c 11.3 on admission, fasting a.m. glucose remains above 200 Receiving insulin high-dose correctional scale. Start Long acting insulin -10units Glargine NOW. 10 units qHS with titration to AM fasting blood glucose <150. No change to insulin dosing at this point. Severe sepsis, POA and resolved. Reviewed the case and patient did have SIRS criteria as well as shock. Source of infection being aspiration pneumonia earlier this hospital course. The patient was treated with antibiotics and pressor support as well. GI prophylaxis famotidine Pain management, sedation with propofol, fentanyl DVT prophylaxis subcutaneous heparin Remains full code Disposition: We will begin to discuss with pediatric social worker and case management plans for long-term care versus home with home health as patient is rapidly improving over the last 24 hours. Pain Evaluation: Adequate Pain Control GI Prophylaxis: H2 kelly VTE Prophylaxis: Sub-Q Heparin (Unfractionated), SCDs VTE Mechanical Devices: Intermittant Pneumatic CD Resuscitation Status: CPR: Attempt Resuscitation Esdras Swan MD Sep 25, 2016 23:55
[2016-09-26] MEDS: Heparin 5,000 Unit/mL Inj SUBQ SCH ×3 (00:13→16:52)
[2016-09-26 00:14] VITALS: BP 150/80; PULSE 70; RESP 20; O2SAT 94
--- NOTE | 2016-09-26 04:54 | NUR ---
Mentation / Anxiety Wants to go AMA. Convinced to listen to MD rounding in morning about necessity of admission. The primary concern appears to be going to work and fixing 's car, but a close second is stepping outside to have a cigarette. After long conversations with patient it appears at home he is drinking 2+ 5 Hour energy drinks a day, smokes too many cigarettes and has a poor diet. He mentioned loosing track of three days prior to admit. thinking he was going to work everyday but found out he had actually stayed home too tired to go to work. Has been restless jumping up from bed to sit on couch then returning to bed throughout the night. The sitter observed him possibly sleeping approximately 30 minutes during night in bed and 45 minutes on couch.
[2016-09-26 07:30] VITALS: PULSE 107; RESP 16; O2SAT 98
[2016-09-26] MEDS: Insulin Human REGular 300 Unit/3 mL Inj SUBQ SCH ×4 (07:30→21:06)
[2016-09-26 08:06] LABS: Magnesium 2.2 mg/dL (1.6-2.6)
[2016-09-26] MEDS: Polyethylene Glycol (PEG) 17 Gm Powder PO SCH ×2 (08:30→19:53)
[2016-09-26] MEDS: Insulin GLARgine 100 Unit/mL Syringe SUBQ SCH ×2 (08:33→21:07)
[2016-09-26 09:42] LABS: BASOPHILS % (AUTO) 0.3 % (0-3); EOSINOPHILS % (AUTO) 1.6 % (0-5); MONOCYTES % (AUTO) 4.9 % (4-12); Mean Corpuscular Hemoglobin 31.1 pg (27.0-35.0); Mean Corpuscular Volume 86.2 fL (81-100); NEUTROPHILS % (AUTO) 67.1 % (40-74); Platelet Count 306 bil/L (150-400)
[2016-09-26] MEDS ORDERED: Haloperidol 5 mg/mL Inj IM PRN (10:35)
--- NOTE | 2016-09-26 10:52 | NUR ---
Agitation At beginning of shift pt was anxious and mildly agitated r/t wanting to leave but nursing/sitter was able to redirect pt. At approx 0930 sitter informed marketing copywriter that pt was walking arana toward exit and wouldn't go back to his room. Security called for assistance and pt ultimately went back to his room after approx 10 minutes. notified, who ordered PRN haldol and scheduled PO anxiety med. MD visited/assessed pt and pt agreed to take anxiety medication. Pt now resting in bed, sitter observing. Continuing to monitor.
--- NOTE | 2016-09-26 10:59 | NUR ---
Hypoglycemia Pt am labs at approx 0830 blood glucose 61, pt asymptomatic & he drank juice right away. MD notified. Subsequent BG check show BG now just above 200. AM insulin lispro withheld, scheduled insulin glargine given. Care continues.
--- NOTE | 2016-09-26 11:03 | NUR ---
Social Work-continued d/c planning/ multidisciplinary rounds: Data:EMR Reviewed. Pt is on day 14 of hospitalization for altered mental status per H&PPer MD, pt will likely remain in the hospital for several more days. Pt continues to clear, but still only remains alert to self. Pt has sitter at bedside. PT has been working with pt and recommending SNF placement. SW awaiting MD order to further discuss. SW will continue to follow. Assessment:Pt who would benefit from SNF. Plan:Anticipate pt to likely need SNF at discharge. SW awaiting MD order to further discuss. SW will continue to follow. RYAN Philippe
[2016-09-26 12:15] VITALS: BP 155/84; PULSE 72; RESP 18; O2SAT 98
--- NOTE | 2016-09-26 15:49 | NUR ---
Faxed referral to [facility] per LOCK TENDER and order
--- NOTE | 2016-09-26 16:10 | NUR ---
Social Work-continued d/c planning: Data:EMR Reviewed. Pt is on day 14 of hospitalization for alerted mental status per H&P. Pt is not medically stable at this time. PT continues to recommend SNF placement. Pt's mother Ainsley [phone] at bedside, CHICHI role explained. order received for SNF placement. SW explained recommendation of SNF to mom and provided her with SNF choice list. Mom would like a referral to [facility] because she lives right by that facility. Mom states that pt and his girlfriend's relationship is vanessa and she does not want pt to return home with her. Mom reports she would allow pt to come home with her if SNF does not work out and she would be able to provide 24/7 care. SW requested that UR specialist fax referral to [facility]. SW will continue to follow. Assessment:Pt who would benefit from SNF. Plan:[facility] has been faxed. Mom is considering taking pt home with her and providing 24/7 care, if SNF does not work out. Mom unwilling to send referrals to any other facilities.SW will continue to follow. RYAN Philippe
[2016-09-26 19:55] VITALS: PULSE 91; RESP 20; O2SAT 96
[2016-09-26 22:25] VITALS: BP 146/83; PULSE 76; RESP 20; O2SAT 96
--- NOTE | 2016-09-27 00:09 | PCM.PNMED ---
Subjective Date of Service Sep 27, 2016 Subjective The patient is more awake and alert. However, he is restless and wants to go home. However, he is oriented only to person and the year. He is aware that he is in [place], [place]. However, he does not know what type of building he is in, despite the fact that I am wearing my weight lab coat and stethoscope. The patient has no other new or specific complaints. Exam Vital Signs Vital Sign - Last Date Time Temp Pulse Resp B/P Pulse Ox O2 Delivery O2 Flow Rate FiO2 09/26/16 22:25 37.0 76 20 146/83 96 Room Air 09/23/16 20:07 5.00 09/21/16 12:00 40 Intake and Output 09/26/16 09/26/16 09/27/16 Cumulative From/Thru 15:00 23:00 07:00 09/12/16 17:31 - 09/26/16 18:29 Intake Total 1680 ml 44440 ml Output Total 31286 ml Balance 1680 ml 9227 ml Intake Oral 1680 ml 8460 ml IV Total 28695 ml Tube Feeding 4749 ml Tube Irrigant 1706 ml Output Urine Total 23588 ml Stool Total 2600 ml Gastric Drainage Total 1625 ml # Voids 4 11 # Bowel Movements 2 13 Exam General: The patient is relatively cooperative. He does not respond well to reasoning however he appears quite comfortable and is in no distress. HEENT: Head is atraumatic and normocephalic. Eyes: Pupils are equally round and reactive to light and accommodation. Extraocular muscles are intact. Sclera are white, anicteric. Subconjunctival mucosa is pink. Ears and nose are unremarkable. Oropharynx: There is no mucosal lesions, there is no thrush, there is no pharyngitis. Neck: Is supple, there are no nodes, or masses or tenderness. Chest: Is clear to auscultation and percussion. There are no rales, rhonchi, wheezes or rubs. Heart: Rate, rhythm is regular. There is no murmur, rub or gallop. Abdomen: Good bowel sounds are present. Abdomen is soft, nontender, no organomegaly or masses were appreciated. Extremities: Are symmetrical and well perfused. There is no edema, there is no cellulitis, no rash. Neurologic: There are no focal neurological deficits. Cranial nerves II through XII are intact. There are no sensory or motor deficits. Psychiatric: Patients mood is somewhat agitated and he is delusional. He is oriented only to person and the year Genital: Deferred Rectal: Deferred Lab and Diagnostics Result Diagram: 09/26/1661509/26/16615 Microbiology Name: PHILLYFROYLAN Jeff Age/Sex: 46/M Attend Dr: Teri Horta MD Acct: [id number] Unit: [id number] Status: ADM IN Location: [facility] [id number] Re09/12/16 Disch: Specimen: [id number] Collected: 09/15/16-1210 Status: COMP Req#: [id number] Received: 09/15/16-1233 Source: [facility] Sp Desc : Subm Dr: Sandeep Radford MD Ordered: GRAM SPT REFLEX, SPUTUM CULTURE Comments: Collected by Nurse/Unit? Y/N N Comment: sputum for gram Kvng mckeonS Procedure Result Verified Site Microbiology SHANT CULT SPUTUM GS Final 09/15/16-1248 SPT GRAM STAIN MODERATE POLYS FEW EPITHELIAL CELLS NO ORGANISMS SEEN This Spec is of good Quality and acceptable for Cult RESPIRATORY CULTURE Final 09/17/16-1004 Organism 1 KLEBSIELLA OXYTOCA COLONY COUNT/QUANTITY SCANT GROWTH 1. KLEBSIELLA OXYTOCA M.I.C Interp --------- ------ * AMIKACIN <=2 S * AMPICILLIN R * AMPICILLIN/SULBACTAM <=2 S * CEFEPIME <=1 S * CEFOXITIN <=4 S * CEFTRIAXONE <=1 S * CIPROFLOXACIN <=0.25 S * ERTAPENEM <=0.5 S * GENTAMICIN <=1 S * MEROPENEM <=0.25 S * TOBRAMYCIN <=1 S * TRIMETHOPRIM/SULFAMETHOXAZOLE <=20 S X-Rays, CTs and MRIs CT BRAIN WITHOUT CONTRAST IMPRESSION: No acute intracranial process. Right parietal scalp swelling/ hematoma. Approved by: Iván Quarles M.D. on 09/12/2016 at 18:29 PROCEDURE: CT CHEST, ABDOMEN AND PELVIS WITH CONTRAST IMPRESSION: Bilateral dependent consolidations suggesting aspiration but superimposed pneumonia cannot be excluded. Recommend clinical correlation. Elsewhere, no acute abnormality. Normal appendix. Colonic diverticulosis without evidence of acute inflammation. Intraluminal gas within the bladder although this could be from catheterization since a [place] catheter is present. Please correlate clinically. Approved by: Iván Quarles M.D. on 09/12/2016 at 19:08 X-RAY CHEST ONE VIEW, PORTABLE IMPRESSION: Bilateral perihilar and medial basilar patchy opacities likely aspiration/ atelectasis although cannot exclude pneumonia. Please correlate clinically. Endotracheal tube with the tip projecting approximately 5 cm above the shelbi. Approved by: Iván Quarles M.D. on 09/12/2016 at 20:[address] 09/17/2016 IMPRESSION: 1. New crazy paving pattern within the upper and midlungs when compared with prior CT dated 09/12/16. Given the acute change, this most likely represents ARDS or acute interstitial pneumonia. 2. Persistent basilar consolidation with air bronchograms consistent with bilateral pneumonia. 3. New, small bilateral low density pleural effusions. No findings to suggest empyema or pulmonary abscess. 4. New mediastinal adenopathy. Given the acute change, this likely represents infectious or reactive adenopathy. 5. New fat stranding along the right abdominal wall. The significance of this finding is unclear. This may represent focal edema if the patient was dependent in this region. Alternatively, hematoma could have this appearance. Dictated by: Jessie Gates M.D. on 09/17/2016 at 14:[address] 09/17/2016 IMPRESSION: 1. Bilateral paranasal sinus mucosal thickening consistent with sinusitis. 2. Fluid within mastoids. Clinical correlation for mastoiditis. 3. Leftward nasal septum deviation. Dictated by: Gera Monroy M.D. on 09/17/2016 at 14:22 Venous duplex ultrasound 09/18/2016 IMPRESSION: 1. No evidence of deep venous thrombosis in the right or left lower extremity. Dictated by: Alexey Lechuga M.D. on 09/18/2016 at 10:03 Chest x-ray 09/18/2016 IMPRESSION: 1. Persistent but slightly decreased pulmonary edema with medial bibasilar consolidation, atelectasis, or consolidation. 2. Small bilateral pleural effusions. Dictated by: Alexey Lechuga M.D. on 09/18/2016 at 9:51 Chest x-ray 09/19/2016 IMPRESSION: Mildly improved bibasilar pulmonary opacities left greater than right with trace pleural effusions. Dictated by: Henrry Dunbar M.D. on 09/19/2016 at 9:56 Chest x-ray 09/20/2016 IMPRESSION: 1. Improving bibasilar pulmonary opacities. 2. ET tube with tip 8.5 CM above the shelbi. Consider advancement for optimal function. Dictated by: Henrry Dunbar M.D. on 09/20/2016 at 7:52 Cardiac Echo Impressions Echocardiogram performed 09/13/2016 Ejection fraction 40%, apical hypokinesis. Assessment & Plan As per the history and physical note "Patient Froylan Pan is a 46-year-old man with past medical history remarkable for hypertension, chronic back pain and diabetes who presents to [facility] with altered mental status and reported seizure activity in route by EMS. The patient was seen in the ED and was intubated and sedated. The history was obtained from the patient's 18-year- old son as well as common law of 20 years and mother. The son states that the patient was sleeping most of the day when he went to check on him the patient was lying face down with foamy sputum coming from his mouth and unresponsive. The son called EMS and proceeded to perform CPR until paramedics arrived. Per ED report of EMS activity paramedics found the patient initially agitated and combative and was administered 500 mg of ketamine IM. The patient was found to have an elevated blood glucose and the patient was given 2000 mL of IV fluids with a heart rate in the 140s. In route the patient is described as having a generalized seizure 10 minutes HEAD BATCHER and was given 5 mg of Versed which halted the seizure. Per the the patient has been complaining of 4 days of headache made worse with coughing. For the headache today the left the patient a topiramate prescription bottle however after pill count inspection the patient likely took 1 or none. The mother gave the patient a Vicodin pill for the headache. 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 The patient reportedly has diagnoses of diabetes and hypertension however the patient is noncompliant with prescription medications and has never taken insulin. The patient has reportedly been urinating extremely frequently and large amounts over the last several days to weeks. Reportedly having to get up multiple times in the middle of the night to urinate." The patient was evaluated at [facility] emergency room and was subsequently admitted to the hospitalist service for further evaluation and treatment. #. Acute encephalopathy (possible anoxic encephalopathy), present on admission, active and continuing to improve. Etiology remains elusive, however suspect hyper-osmotic coma state as patient had blood glucose 657 on presentation, however unclear if this was primary cause of encephalopathy, or if reactive to underlying infection or other disease process. The patient may have suffered anoxic encephalopathy. However , he is improving rapidly over the last 48 hours. Lumbar puncture, EEG, brain, chest, sinus, abdomen, pelvis CTs remained otherwise unremarkable for definitive cause. -CTs reviewed independently in their entirety. Will continue off Keppra. Patient has no evidence of infection after being off from antivirals antimicrobials for the last several days - We will attempt to hold all narcotic agents and control his pain with Tylenol and/or Toradol. This appears to be helping and improving patient's mental status. - As Seroquel does not appear to be helping the patient we will change to Zyprexa 2.5 mg by mouth every 6 hours for now and may convert to 5 mg by mouth every 12 hours if effective. Psychiatry consult pending in a.m. #. Acute respiratory failure with hypoxia, not present on admission, resolved. The patient is off oxygen, we will stop diuresis at this point. #. Acute drug reaction (rash and fever), not present on admission, resolved. No further clinical evidence. #. Acute aspiration pneumonia, present on admission, resolved. Sputum cultures grew Klebsiella species Respiratory status is normal Acute on Chronic systolic heart failure, present on admission resolved. Echocardiogram showed left ventricular function of 40% EF with apical hypokinesis Possibly stress-induced Troponins were trended and have normalized Cardiac catheterization showed no stenosis or occlusions to coronary arteries Discontinue furosemide at this point Diabetes mellitus type II, present on admission, active and controlled. A1c 11.3 on admission, fasting a.m. glucose remains above 200 Receiving insulin high-dose correctional scale. Start Long acting insulin -10units Glargine NOW. 10 units qHS with titration to AM fasting blood glucose <150. No change to insulin dosing at this point. Severe sepsis, present on admission and resolved. Reviewed the case and patient did have SIRS criteria as well as shock. Source of infection being aspiration pneumonia earlier this hospital course. The patient was treated with antibiotics and pressor support as well. GI prophylaxis famotidine Pain management, sedation with propofol, fentanyl DVT prophylaxis subcutaneous heparin Remains full code Disposition: We will obtain a psychiatric consult due to patient's agitated and delusional behavior. Then we will begin to discuss with social media editor and case management plans for long-term care versus home with home health as patient is rapidly improving over the last 24 hours. GI Prophylaxis: H2 kelly VTE Prophylaxis: Sub-Q Heparin (Unfractionated), SCDs VTE Mechanical Devices: Intermittant Pneumatic CD Resuscitation Status: CPR: Attempt Resuscitation MonumentEsdras MD Sep 27, 2016 00:09
[2016-09-27] MEDS: Heparin 5,000 Unit/mL Inj SUBQ SCH ×3 (00:21→16:29)
--- NOTE | 2016-09-27 02:52 | NUR ---
BG BG checked just now, reading at 76. Pt refused toast with peanut butter, vanilla ice cream given per request.
[2016-09-27 03:59] VITALS: BP 159/82; PULSE 71; RESP 20; O2SAT 98
[2016-09-27] MEDS: Insulin Human REGular 300 Unit/3 mL Inj SUBQ SCH ×3 (07:30→16:26)
[2016-09-27] MEDS: Polyethylene Glycol (PEG) 17 Gm Powder PO SCH (08:30)
[2016-09-27] MEDS: Insulin GLARgine 100 Unit/mL Syringe SUBQ SCH (09:24)
--- NOTE | 2016-09-27 12:02 | NUR ---
Called and left message in admissions at [facility] letting them know I was needing to follow up on referral sent to them yesterday, this is the patient's mother's preference. Updated ESTIMATE CLERK Addendum: 09/27/16 at 1401 by MANJIT TENORIO CM Spoke with Za at [facility] and they are having their medical records director review the referral, they should be able to have definitive answer today. Updated ESTIMATE CLERK
--- NOTE | 2016-09-27 12:28 | NUR ---
Nicotine patch/Agitation: During am assessment, nicotine patch was not secure to arm. When discussing with patient about securing it better to arm, he asked for it to be removed, states "it's not doing any good anyway". Nicotine patch removed. Patient continually asking to speak with MD, stating that he is ready to leave because he has plans with son. Appears to be be agitated and restless while waiting for hospitalist. Reassured patient that he will receive a visit from MD, however cannot give him an exact time. MD aware of patient request. Friend at bedside attempting to reassure patient. When asked about pain patient states "yeah, I'm having chest pain because I'm so pissed off from having to wait, I'm going to have a heart attack!" Again, reassured patient that MD will visit. Readdressed pain and patient denied pain at this time.
--- NOTE | 2016-09-27 14:39 | NUR ---
Refusing Medication: Patient refusing 1430 Olanzapine. States that he will not take any more medications except for insulin. States that he feels that we are forcing "sedating" medications on him. Telling friend that he took medication last night that "put me out", however in further along in the conversation he states that he hasn't slept in three days. Attempting to educate patient on medication and uses. Patient interrupts and continues to say that he will not take it. Friend calls patients mother to have her speak with patient. Patient continues to refuse.
--- NOTE | 2016-09-27 15:25 | NUR ---
Social Work: Readiness for d/c / Multidisciplinary Rounds Data: Pt is on day 15 of hospitalization. EMR reviewed. Pt discussed in rounds. MD states Psych will meet with pt today. PT recommending home and not further therapy needed. HEAD STOCK OPERATOR spoke with pt's mother who called regarding d/c plan. HEAD STOCK OPERATOR informed her that Psych is reviewing pt this afternoon. She states pt is wanting to go home. Pt will require assistance from family, HH, or private pay caregiving at home for medication management and monitoring as pt's mentation is not clear. HEAD STOCK OPERATOR will continue to follow. Contacts: Mother: Ainsley Willard [phone] Girlfriend: Adriana [phone] Son: Rito [phone] Assessment: Pt who is independent at baseline, currently not capable of self care. Plan: Psych to evaluate pt tonight. HEAD STOCK OPERATOR will continue to follow. Possible HH need, private pay caregiving or family to assist. RYAN Singh
--- NOTE | 2016-09-27 15:47 | NUR ---
NUTRITION FOLLOW-UP: ASSESS: 46 YO male admitted to CCU with AMS, seizure activity, and pneumonia. Pt was extubated on 09/22. Pt is currently on a diabetic diet with varying po intake of 0-100% of meals. PMHX: HTN, type 2 diabetes, back pain, polysubstance abuse, smoking. LABS: Reviewed. Cr .75, Alb 3.6 MEDS: Reviewed. GI: BM x 4 today. SKIN: Numerous abrasions L scapula. Suspected deep tissue injury on medial L buttock. Wound Care following. WT: 86.7 kg. Admit weight: 93.1 kg. DIET: Diabietc. Magic cup all trays. PO 0-100% of meals with po avg of ~40% x 3 days. ESTIMATED NEEDS: Calories: 7268-6989 kcal/day (25-30 kcal/kg BW) Protein: 110-140 g/day (1.2-1.5 g/kg BW) Fluids: ~2300 ml/day (25 ml/kg BW) NUTRITION DIAGNOSIS: 1) Inadequate oral intake related to decreased ability to consume sufficient energy as evidenced by current NPO status - IMPROVING, PT EATING 0-100% of meals. 2) Altered nutrition related lab values related to endocrine dysfunction as evidence by A1C of 10.4 and elevated BG levels - PERSISTS. 3.) Chewing /swallowing difficulties related to cognitive impairment as evidenced by current need for mechanically altered diet texture, ST following--RESOLVED. NUTRITION INTERVENTION: 1.) Continue current diet at this time. 2.) Consider diabetic education once/if mentation/cognition improves. MONITOR/EVALUATE: Po intake, diet tolerance, GI, labs, nutrition status. Follow per high nutrition risk guidelines.
--- NOTE | 2016-09-27 16:15 | NUR ---
D/c PT; Pt is safe to amb halls w/nsg w/o AD SBA (gait belt)
--- NOTE | 2016-09-27 16:26 | PCM.DIMED ---
Discharge Instructions Date of Service Sep 27, 2016 Dates of Hospitalization Sep 12, 2016 at 19:39 Discharge Diagnosis Discharge Diagnosis DM with Hyperosmolar State with Aspiration Pneumonia Diet Discharge Diet: Diabetic Activity Discharge Activity: Limited until seen by PCP (Patient is not to drive or operate any machinery.) Call your provider Call your provider for: Fever or Chills, Shortness of breath, Bleeding, Chest pain, Vomitting, Excessive diarrhea, Weakness (unilateral) Patient Instructions Follow-up with PCP in: 1 week (Patient to follow up with Eleni [facility] in one week.) Provider: Vish Dias MD Follow-up in: 2 weeks (For Neurology evaluation.) Esdras Swan MD Sep 27, 2016 16:26
[2016-09-27] MEDS ORDERED: NICO1PAT6 TOPICAL (16:33)
[2016-09-27] MEDS ORDERED: INSU100V7 SUBQ (16:33)
[2016-09-27] MEDS ORDERED: ASPI81TA3 PO (16:33)
[2016-09-27] MEDS ORDERED: OLAN2.5T20 PO (16:33)
[2016-09-27 16:35] VITALS: BP 147/91; PULSE 97; RESP 20; O2SAT 97
--- NOTE | 2016-09-27 18:13 | NUR ---
Discharge: Patient discharged to home @ approx 1645. IV d/c'd intact. Patient states he did not have any personal belongings. Reviewed new prescriptions, home medication list, d/c instructions and follow up appointments with patient and friend. Attempted to teach patient to self-administer insulin injections. Patient does not seem to fully comprehend how to properly administer. Discussed with MD. Patient assured this RN and MD that he has family support that will help him with insulin injections. Patient refuses to stay in hospital overnight so the could arrange for home health. Patient escorted to main entrance via wheelchair accompanied by SWAGE TENDER.
--- NOTE | 2016-09-28 00:26 | PCM.DC.MED ---
Discharge Summary Date of Service Sep 27, 2016 Dates of Hospitalization Date of Hospital Admission Sep 12, 2016 at 19:39 Date of Discharge: Sep 27, 2016 Providers: Admitting Physician: Tianna Rapp MD Primary Care Physician: Other,Physician Attending Physician: Esdras Hitchcock MD Diagnosis at Time of Discharge Diagnosis at Time of Discharge DM with Hyperosmolar State with Aspiration Pneumonia Consultations The patient was seen by cardiology, pulmonary, infectious disease and psychiatry consultants. Procedures XRay, CTs & MRIs CT BRAIN WITHOUT CONTRAST IMPRESSION: No acute intracranial process. Right parietal scalp swelling/ hematoma. Approved by: Iván Quarles M.D. on 09/12/2016 at 18:29 PROCEDURE: CT CHEST, ABDOMEN AND PELVIS WITH CONTRAST IMPRESSION: Bilateral dependent consolidations suggesting aspiration but superimposed pneumonia cannot be excluded. Recommend clinical correlation. Elsewhere, no acute abnormality. Normal appendix. Colonic diverticulosis without evidence of acute inflammation. Intraluminal gas within the bladder although this could be from catheterization since a [place] catheter is present. Please correlate clinically. Approved by: Iván Quarles M.D. on 09/12/2016 at 19:08 X-RAY CHEST ONE VIEW, PORTABLE IMPRESSION: Bilateral perihilar and medial basilar patchy opacities likely aspiration/ atelectasis although cannot exclude pneumonia. Please correlate clinically. Endotracheal tube with the tip projecting approximately 5 cm above the shelbi. Approved by: Iván Quarles M.D. on 09/12/2016 at 20:[address] 09/17/2016 IMPRESSION: 1. New crazy paving pattern within the upper and midlungs when compared with prior CT dated 09/12/16. Given the acute change, this most likely represents ARDS or acute interstitial pneumonia. 2. Persistent basilar consolidation with air bronchograms consistent with bilateral pneumonia. 3. New, small bilateral low density pleural effusions. No findings to suggest empyema or pulmonary abscess. 4. New mediastinal adenopathy. Given the acute change, this likely represents infectious or reactive adenopathy. 5. New fat stranding along the right abdominal wall. The significance of this finding is unclear. This may represent focal edema if the patient was dependent in this region. Alternatively, hematoma could have this appearance. Dictated by: Jessie Gates M.D. on 09/17/2016 at 14:[address] 09/17/2016 IMPRESSION: 1. Bilateral paranasal sinus mucosal thickening consistent with sinusitis. 2. Fluid within mastoids. Clinical correlation for mastoiditis. 3. Leftward nasal septum deviation. Dictated by: Gera Monroy M.D. on 09/17/2016 at 14:22 Venous duplex ultrasound 09/18/2016 IMPRESSION: 1. No evidence of deep venous thrombosis in the right or left lower extremity. Dictated by: Alexey Lechuga M.D. on 09/18/2016 at 10:03 Chest x-ray 09/18/2016 IMPRESSION: 1. Persistent but slightly decreased pulmonary edema with medial bibasilar consolidation, atelectasis, or consolidation. 2. Small bilateral pleural effusions. Dictated by: Alexey Lechuga M.D. on 09/18/2016 at 9:51 Chest x-ray 09/19/2016 IMPRESSION: Mildly improved bibasilar pulmonary opacities left greater than right with trace pleural effusions. Dictated by: Henrry Dunbar M.D. on 09/19/2016 at 9:56 Chest x-ray 09/20/2016 IMPRESSION: 1. Improving bibasilar pulmonary opacities. 2. ET tube with tip 8.5 CM above the shelbi. Consider advancement for optimal function. Dictated by: Henrry Dunbar M.D. on 09/20/2016 at 7:52 Cardiac Echo Impression Echocardiogram performed 09/13/2016 Ejection fraction 40%, apical hypokinesis. Brief History Patient Froylan Fraga is a 46-year-old man with past medical history remarkable for hypertension, chronic back pain and diabetes who presents to [facility] with altered mental status and reported seizure activity in route by EMS. The patient was seen in the ED and was intubated and sedated. The history was obtained from the patient's 18-year-old son as well as common law of 20 years and mother. The son states that the patient was sleeping most of the day when he went to check on him the patient was lying face down with foamy sputum coming from his mouth and unresponsive. The son called EMS and proceeded to perform CPR until paramedics arrived. Per ED report of EMS activity paramedics found the patient initially agitated and combative and was administered 500 mg of ketamine IM. The patient was found to have an elevated blood glucose and the patient was given 2000 mL of IV fluids with a heart rate in the 140s. In route the patient is described as having a generalized seizure 10 minutes [employer] and was given 5 mg of Versed which halted the seizure. Per the the patient has been complaining of 4 days of headache made worse with coughing. For the headache today the left the patient a topiramate prescription bottle however after pill count inspection the patient likely took 1 or none. The mother gave the patient a Vicodin pill for the headache. 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 The patient reportedly has diagnoses of diabetes and hypertension however the patient is noncompliant with prescription medications and has never taken insulin. The patient has reportedly been urinating extremely frequently and large amounts over the last several days to weeks. Reportedly having to get up multiple times in the middle of the night to urinate. The patient was admitted to the hospitalist service for further evaluation and treatment recommendations. Hospital Course As per the history and physical note "Ale Fraga is a 46-year-old man with past medical history remarkable for hypertension, chronic back pain and diabetes who presents to [facility] with altered mental status and reported seizure activity in route by EMS. The patient was seen in the ED and was intubated and sedated. The history was obtained from the patient's 18-year- old son as well as common law of 20 years and mother. The son states that the patient was sleeping most of the day when he went to check on him the patient was lying face down with foamy sputum coming from his mouth and unresponsive. The son called EMS and proceeded to perform CPR until paramedics arrived. Per ED report of EMS activity paramedics found the patient initially agitated and combative and was administered 500 mg of ketamine IM. The patient was found to have an elevated blood glucose and the patient was given 2000 mL of IV fluids with a heart rate in the 140s. In route the patient is described as having a generalized seizure 10 minutes [employer] and was given 5 mg of Versed which halted the seizure. Per the the patient has been complaining of 4 days of headache made worse with coughing. For the headache today the left the patient a topiramate prescription bottle however after pill count inspection the patient likely took 1 or none. The mother gave the patient a Vicodin pill for the headache. 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 The patient reportedly has diagnoses of diabetes and hypertension however the patient is noncompliant with prescription medications and has never taken insulin. The patient has reportedly been urinating extremely frequently and large amounts over the last several days to weeks. Reportedly having to get up multiple times in the middle of the night to urinate." The patient was evaluated at [facility] emergency room and was subsequently admitted to the hospitalist service for further evaluation and treatment. #. Acute encephalopathy (possible anoxic encephalopathy), present on admission, active and continuing to improve markedly. Etiology remains elusive, however suspect hyper-osmotic coma state as patient had blood glucose 657 on presentation, however unclear if this was primary cause of encephalopathy, or if reactive to underlying infection or other disease process. The patient may have suffered anoxic encephalopathy. However , he is improving rapidly over the last 48 hours. Lumbar puncture, EEG, brain, chest, sinus, abdomen, pelvis CTs remained otherwise unremarkable for definitive cause. -CTs reviewed independently in their entirety. Will continue off Keppra. Patient has no evidence of infection after being off from antivirals antimicrobials for the last several days - We will attempt to hold all narcotic agents and control his pain with Tylenol and/or Toradol. This appears to be helping and improving patient's mental status. - As Seroquel does not appear to be helping the patient we will change to Zyprexa 2.5 mg by mouth every 6 hours for now.. Psychiatry consult obtained and appreciate Dr. Pederson time and expertise. We will discharge home on Zyprexa 2.5 mg by mouth twice a day #. Acute respiratory failure with hypoxia, not present on admission, resolved. The patient is off oxygen, we will stop diuresis at this point. #. Acute drug reaction (rash and fever), not present on admission, resolved. No further clinical evidence. #. Acute aspiration pneumonia, present on admission, resolved. Sputum cultures grew Klebsiella species Respiratory status is normal Acute on Chronic systolic heart failure, present on admission resolved. Echocardiogram showed left ventricular function of 40% EF with apical hypokinesis Possibly stress-induced Troponins were trended and have normalized Cardiac catheterization showed no stenosis or occlusions to coronary arteries Discontinue furosemide at this point Diabetes mellitus type II, present on admission, active and controlled. A1c 11.3 on admission, fasting a.m. glucose remains above 200 The patient was on insulin high-dose correctional scale. However, his required very little correctional insulin The patient has been doing well on Lantus insulin 25 units subcutaneous twice a day Severe sepsis, present on admission and resolved. Reviewed the case and patient did have SIRS criteria as well as shock. Source of infection being aspiration pneumonia earlier this hospital course. The patient was treated with antibiotics and pressor support as well. GI prophylaxis famotidine Pain management, sedation with propofol, fentanyl DVT prophylaxis subcutaneous heparin Remains full code Disposition: We have obtained a psychiatric consult with Dr. Sharp and he feels that the patient is safe to go home with his family. Please refer to his consultation note. Exam Vital Signs (Last) Date Time Temp Pulse Resp B/P Pulse Ox O2 Delivery O2 Flow Rate FiO2 09/27/16 16:35 36.6 97 20 147/91 97 Room Air 09/23/16 20:07 5.00 Exam General: The patient is cooperative. He is much more awake and alert and responsive and very much wants to go home as it is his son's birthday today. HEENT: Head is atraumatic and normocephalic. Eyes: Pupils are equally round and reactive to light and accommodation. Extraocular muscles are intact. Sclera are white, anicteric. Subconjunctival mucosa is pink. Ears and nose are unremarkable. Oropharynx: There is no mucosal lesions, there is no thrush, there is no pharyngitis. Neck: Is supple, there are no nodes, or masses or tenderness. Chest: Is clear to auscultation and percussion. There are no rales, rhonchi, wheezes or rubs. Heart: Rate, rhythm is regular. There is no murmur, rub or gallop. Abdomen: Good bowel sounds are present. Abdomen is soft, nontender, no organomegaly or masses were appreciated. Extremities: Are symmetrical and well perfused. There is no edema, there is no cellulitis, no rash. Neurologic: There are no focal neurological deficits. Cranial nerves II through XII are intact. There are no sensory or motor deficits. Psychiatric: Patients mood is somewhat agitated and he is less delusional. He is oriented to person and the year and he knows that he is in a hospital or clinic setting. His mentation is much improved. He appears to have some receptive and expressive cerebral difficulties. Genital: Deferred Rectal: Deferred Test 09/12/16 17:30 09/12/16 17:50 09/13/16 04:30 09/13/16 04:35 Osmolality 336 (275-300) Salicylates Level < 3.0ug/mL (30-250) Acetaminophen Level < 15.0ug/mL Rx (10-25) Alcohols < 10mg/dL (0-10) Ketones Negative (Negative) Urine Osmolality 588mOs/kH2O (250-1200) Urine Random Creatinine 24mg/dL (22-328) Urine Random Sodium 60mEq/L Urine Opiates Screen Negative Urine Methadone Screen Negative Urine Barbiturates Screen Negative Urine Amphetamines Screen Negative Urine Benzodiazepines Screen Negative Urine Cocaine Metabolite Screen Negative Urine Cannabinoids Screen Negative Hemoglobin A1c 10.4% (4.8-5.6) Total Creatine Kinase 499U/L (21-232) Creatine Kinase MB 13.8ng/mL (0.0-10.4) Creatine Kinase MB % 2.8% (0.0-5.0) Test 09/13/16 08:03 09/13/16 08:44 09/13/16 10:20 09/13/16 15:02 Opiates Screen Negativeng/mL (Cutoff:5) Oxycodone Screen Negativeng/mL (Cutoff:5) Blood Methadone Screen Negativeng/mL (Cutoff:25) Propoxyphene Level Screen Negativeng/mL (Cutoff:50) Barbiturates Negativeug/mL (Cutoff:0.1) Phencyclidine (PCP) Screen Negativeng/mL (Cutoff:8) Amphetamines Screen Negativeng/mL (Cutoff:50) Alprazolam (Xanax) Level Negativeng/mL (.) Chlordiazepoxide (Librium) Level Negativeng/mL (.) Desmethylchlordiazepoxide Level Negativeng/mL (.) Benzodiazepines ++positive++ng/mL (Cutoff:20) Benzodiazepine Confirmation Positive (.) Clonazepam (Klonopin;Rivatril) Levl Negativeng/mL (.) 7-Amino Clonazepam Level Negativeng/mL (.) Diazepam (Valium) Level Negativeng/mL (.) Desmethyldiazepam Level Negativeng/mL (.) Flurazepam Level Negativeng/mL (.) Desalkylflurazepam Level Negativeng/mL (.) Lorazepam (Ativan) Level Negativeng/mL (.) Oxazepam (Serax) Level Negativeng/mL (.) Temazepam (Restoril) Level Negativeng/mL (.) Triazolam (Halcion) Level Negativeng/mL (.) Midazolam (Versed) Level 7ng/mL (.) Cocaine & Metabolite Level Negativeng/mL (Cutoff:25) Cannabinoids Negativeng/mL (Cutoff:5) Ethylene Glycol None detectedmg/dL Methyl Alcohol Level Negative% (0.000-0.010) Troponin T 0.292ug/L (0.0-0.011) Hold Red Top Tube Received (Received) Activated Partial Thromboplast Time 26.2sec (22.8-33.0) Lactic Acid Level 1.1mmol/L (0.4-2.0) Test 09/14/16 01:29 09/17/16 03:40 09/18/16 03:15 09/19/16 14:15 Urine Color Yellow (YELLOW) Urine Appearance Clear (CLEAR,HAZY) Urine pH 5.5 (5.0-8.0) Urine Specific [place] 1.025 (1.003-1.035) Urine Protein Negativemg/dL (NEG,TRACE) Urine Glucose (UA) >1000mg/dL (NEGATIVE) Urine Ketones 15mg/dL (NEGATIVE) Urine Occult Blood Moderate (NEGATIVE) Urine Nitrite Negative (NEGATIVE) Urine Bilirubin Negative (NEGATIVE) Urine Urobilinogen Normalmg/dL (NORMAL) Urine Leukocyte Esterase Negative (NEGATIVE) Urine RBC 11-50/hpf (0-2) Urine WBC 0-5/hpf (0-5) Urine Epithelial Cells Few/hpf (NONE-MOD) Urine Crystals Uric acid crystals (NONE Urine Bacteria Few/hpf (NONE-FEW) Urine Hyaline Casts None/lpf (NONE) Urine Granular Casts None seen (NONE SEEN) Urine Waxy Casts None seen (NONE SEEN) Urine Red Blood Cell Casts None seen (NONE SEEN) Urine White Blood Cell Casts None seen (NONE SEEN) Urine Mucus None seen (None Seen) Urine Trichomonas None seen (NONE SEEN) Urine Yeast None (NONE SEEN) Urinalysis Comment Amorphous sediment Urine Culture Reflexed Not indicated Fungal Antibodies 58pg/mL (<80) Haptoglobin 323mg/dL (34-200) Hematology Comments Lipase 51U/L (13-60) Herpes Simplex Virus I DNA (PCR) Negative (Negative) Herpes Simplex Virus II DNA (PCR) Negative (Negative) Herpesvirus 6 DNA (Quant PCR) Negativecopies/mL (Negative) Herpesvirus 6 DNA (log copies/ml) (.) Test 09/19/16 19:26 09/20/16 04:10 09/21/16 05:35 09/23/16 04:30 CSF Appearance Clear (CLEAR) CSF Color Colorless (COLORLESS) CSF WBC 1/mm3 (0-5) CSF RBC 124/mm3 CSF Mononuclear WBCs % CSF Polynuclear WBCs % CSF Other Cells CSF Glucose 154mg/dL (45-90) CSF Total Protein 23mg/dL (15-45) Prothrombin Time 10.5sec (8.1-12.5) Prothromb Time International Ratio 0.98ratio Prealbumin 27mg/dL (20-40) Triglycerides Level 441mg/dL (0-149) Cholesterol Level 177mg/dL (100-199) LDL Cholesterol, Calculated 76.800mg/dL (0-99) VLDL Cholesterol 88.200mg/dL HDL Cholesterol 12mg/dL (>39) Cholesterol/HDL Ratio 14.75 (0.0-4.4) Procalcitonin 0.35ng/mL (0.00-0.08) Phosphorus Level 2.8mg/dL (2.5-4.9) Test 09/26/16 06:16 09/27/16 05:57 White Blood Count 11.4th/mm3 (3.8-10.1) Red Blood Count 5.78mil/mm3 (4.40-5.80) Hemoglobin 18.0g/dL (13.8-17.2) Hematocrit 49.8% (41.0-50.0) Mean Corpuscular Volume 86.2fL (81-100) Mean Corpuscular Hemoglobin 31.1pg (27.0-35.0) Mean Corpuscular Hemoglobin Concent 36.1% (32.0-37.0) Red Cell Distribution Width 12.9% (12.3-15.4) Platelet Count 306bil/L (150-400) Neutrophils (%) (Auto) 67.1% (40-74) Lymphocytes (%) (Auto) 25.8% (14-46) Monocytes (%) (Auto) 4.9% (4-12) Eosinophils (%) (Auto) 1.6% (0-5) Basophils (%) (Auto) 0.3% (0-3) Sodium Level 144mEq/L (134-144) Potassium Level 3.7mEq/L (3.5-5.2) Chloride Level 106mEq/L (97-108) Carbon Dioxide Level 19mmol/L (18-29) Blood Urea Nitrogen 17mg/dL (6-24) Creatinine 0.75mg/dL (0.76-1.27) Estimat Glomerular Filtration Rate 118mL/min (>59) Glucose Level 61mg/dL (60-99) Calcium Level 9.1mg/dL (8.5-10.1) Magnesium Level 2.2mg/dL (1.6-2.6) Total Bilirubin 0.4mg/dL (0.0-1.2) Aspartate Amino Transf (AST/SGOT) 30U/L (0-50) Alanine Aminotransferase (ALT/SGPT) 21U/L (0-44) Alkaline Phosphatase 51U/L (25-150) Total Protein 6.6g/dL (6.4-8.4) Albumin 3.6g/dL (3.4-5.0) Thyroid Stimulating Hormone (TSH) 0.864uIU/mL (0.450-4.500) Free Thyroxine 1.48ng/dL (0.82-1.77) Microbiology Results Name: FROYLAN FRAGA Age/Sex: 46/M Attend Dr: Teri Horta MD Acct: [id number] Unit: [id number] Status: ADM IN Location: [facility] [id number] Re09/12/16 Disch: Specimen: [id number] Collected: 09/15/16 Status: COMP Req#: [id number] Received: 09/15/161233 Source: [facility] Sp Desc : Subm Dr: Sandeep Radford MD Ordered: GRAM SPT REFLEX, SPUTUM CULTURE Comments: Collected by Nurse/Unit? Y/N N Comment: sputum for gram Jose Eduardo mckeon Procedure Result Verified Site Microbiology SHANT CULT SPUTUM GS Final 09/15/16-1248 SPT GRAM STAIN MODERATE POLYS FEW EPITHELIAL CELLS NO ORGANISMS SEEN This Spec is of good Quality and acceptable for Cult RESPIRATORY CULTURE Final 09/17/16-1004 Organism 1 KLEBSIELLA OXYTOCA COLONY COUNT/QUANTITY SCANT GROWTH 1. KLEBSIELLA OXYTOCA M.I.C Interp --------- ------ * AMIKACIN <=2 S * AMPICILLIN R * AMPICILLIN/SULBACTAM <=2 S * CEFEPIME <=1 S * CEFOXITIN <=4 S * CEFTRIAXONE <=1 S * CIPROFLOXACIN <=0.25 S * ERTAPENEM <=0.5 S * GENTAMICIN <=1 S * MEROPENEM <=0.25 S * TOBRAMYCIN <=1 S * TRIMETHOPRIM/SULFAMETHOXAZOLE <=20 S Discharge Medications Discharge Medications Aspirin Chew (Aspirin Chew) 81 Mg Chew 81 MG PO DAILY Prescribed by: EARL HITCHCOCK MD Insulin Glargine (Lantus U100 Insulin Vial) 100 Unit/Ml Vial 35 UNIT SUBQ BID Prescribed by: EARL HITCHCOCK MD Nicotine 21 mg/24 hr Patch (Nicotine 21 mg/24 hr Patch) 1 Each Patch.td24 1 PATCH TOPICAL Q24H Prescribed by: EARL HITCHCOCK MD Olanzapine (Olanzapine) 2.5 Mg Tablet 2.5 MG PO BID Prescribed by: EARL HITCHCOCK MD Followup Plan Disposition: Patient is being discharged home in the care of his friend Daniel and his family. He refuses to stay another day to have home health set up. He states that he has plenty of family support who will help him administer his insulin he agrees to not drive or operate any machinery. He states that he is going [place] most [place]. Discharge Diet: Diabetic Discharge Activity: Limited until seen by PCP (Patient is not to drive or operate any machinery.) Follow-up with PCP in: 1 week (Patient to follow up with El[facility] in one week.) Provider: Vish Dias MD Follow-up in: 2 weeks (For Neurology evaluation.) Time spent Time spent on discharging this patient was greater than 35 minutes, over half of which was involved in counseling and coordination of care. Esdras Hitchcock MD Sep 28, 2016 00:26
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
[2016-09-28 08:12] LABS: Vitamin B12 >1999 pg/mL (211-946)
== END 2016-09-27 17:52 | disposition home or self-care (01) | DRG 853 ==
LOC: SED 17:26 → CCU 19:39 → PCC 09-22 09:46 → MPC 09-23 17:19
PROVIDERS: ADMIT Specialist; ATTEND Specialist
PROC: 02HV33Z Insertion of Infusion Device into Superior Vena Cava, Percutaneous Approach (ICD-10-PCS; 2016-09-12)
PROC: 5A1955Z Respiratory Ventilation, Greater than 96 Consecutive Hours (ICD-10-PCS; 2016-09-12)
PROC: 0BH17EZ Insertion of Endotracheal Airway into Trachea, Via Natural or Artificial Opening (ICD-10-PCS; 2016-09-12)
PROC: 4A033R1 Measurement of Arterial Saturation, Peripheral, Percutaneous Approach (ICD-10-PCS; 2016-09-12)
PROC: 4A023N7 Measurement of Cardiac Sampling and Pressure, Left Heart, Percutaneous Approach (ICD-10-PCS; 2016-09-13)
PROC: B2111ZZ Fluoroscopy of Multiple Coronary Arteries using Low Osmolar Contrast (ICD-10-PCS; 2016-09-13)
PROC: B2151ZZ Fluoroscopy of Left Heart using Low Osmolar Contrast (ICD-10-PCS; 2016-09-13)
PROC: 009U3ZX Drainage of Spinal Canal, Percutaneous Approach, Diagnostic (ICD-10-PCS; 2016-09-13)
PROC: 4A00X4Z Measurement of Central Nervous Electrical Activity, External Approach (ICD-10-PCS; 2016-09-14)
PROC: 0B968ZX Drainage of Right Lower Lobe Bronchus, Via Natural or Artificial Opening Endoscopic, Diagnostic (ICD-10-PCS; 2016-09-17)
PROC: 0BCF8ZZ Extirpation of Matter from Right Lower Lung Lobe, Via Natural or Artificial Opening Endoscopic (ICD-10-PCS; principal; 2016-09-17 14:30)
PROC: 009U3ZX Drainage of Spinal Canal, Percutaneous Approach, Diagnostic (ICD-10-PCS; 2016-09-19)
DX: A41.9 Sepsis, unspecified organism (principal); J69.0 Pneumonitis due to inhalation of food and vomit; E11.00 Type 2 diabetes mellitus with hyperosmolarity without nonketotic hyperglycemic-hyperosmolar coma (NKHHC); G93.40 Encephalopathy, unspecified; J96.01 Acute respiratory failure with hypoxia; R65.21 Severe sepsis with septic shock; I50.23 Acute on chronic systolic (congestive) heart failure; G40.89 Other seizures; E87.2 Acidosis; N17.9 Acute kidney failure, unspecified; I24.8 Other forms of acute ischemic heart disease; T17.890A Other foreign object in other parts of respiratory tract causing asphyxiation, initial encounter; T79.6XXA Traumatic ischemia of muscle, initial encounter; G89.29 Other chronic pain; M54.9 Dorsalgia, unspecified; I10 Essential (primary) hypertension; Z91.14 Patient's other noncompliance with medication regimen; F17.220 Nicotine dependence, chewing tobacco, uncomplicated; F17.210 Nicotine dependence, cigarettes, uncomplicated; L27.1 Localized skin eruption due to drugs and medicaments taken internally; T36.1X5A Adverse effect of cephalosporins and other beta-lactam antibiotics, initial encounter; Y92.230 Patient room in hospital as the place of occurrence of the external cause